=== PATIENT | female | born 1975 | race African-American/Black ===

== ENCOUNTER 2020-02-22 10:04 | Outpatient (CLI) | payer OTHER ==
--- NOTE | 2020-02-22 10:42 | MMO ---
Bilateral MAMMO Bilat Screen DDI. CLINICAL HISTORY: Patient is 44 years old and is seen for screening. The patient has no family history of breast cancer. The patient has no personal history of cancer. VIEWS: The views performed were: bilateral craniocaudal and bilateral mediolateral oblique. This study has been interpreted with the assistance of computer-aided detection. MAMMOGRAM FINDINGS: The breasts are heterogeneously dense, which could obscure a lesion on mammography. There are no suspicious masses, suspicious calcifications, or new areas of architectural distortion. IMPRESSION: THERE IS NO MAMMOGRAPHIC EVIDENCE OF MALIGNANCY. A ROUTINE FOLLOW-UP MAMMOGRAM IN 1 YEAR IS RECOMMENDED. ACR BI-RADS Category 1 - Negative MAMMOGRAPHY NOTE: 1. A negative mammogram report should not delay a biopsy if a dominant of clinically suspicious mass is present. 2. Approximately 10% to 15% of breast cancers are not detected by mammography. 3. Adenosis and dense breasts may obscure an underlying neoplasm. Reported by: USMAN MONROE MD Electonically Signed: [id number]
== END 2020-02-22 10:05 | disposition home or self-care (01) ==
LOC: BICMAMMO 10:04
PROVIDERS: ATTEND Student in an Organized Health Care Education/Training Program
DX: Z12.31 Encounter for screening mammogram for malignant neoplasm of breast (principal)
CPT/HCPCS: 77067

== ENCOUNTER 2020-05-22 20:07 | Inpatient (IN) | payer OTHER ==
[~2020-05-22 20:07] MED LIST: Iopamidol-370 76% 500 ML 1 ML ONE
[2020-05-22] MEDS ORDERED: Dextrose 50% Abboject 50 ML SYRINGE ONE ×2 (21:23→23:10)
--- NOTE | 2020-05-22 21:43 | RAD ---
Portable frontal chest radiograph: 05/22/2020 COMPARISON: 05/13/2008 HISTORY: Alcohol intoxication FINDINGS: Lungs are clear. Heart and mediastinal contours appear within normal limits. IMPRESSION: No acute findings.
--- NOTE | 2020-05-22 21:57 | CT ---
CT OF THE BRAIN WITHOUT CONTRAST: 05/22/20 INDICATIONS: Altered mental status, lying outside on the ground of unknown amount of time. Reportedly drank unknow n amount of Vodka. COMPARISON: None. FINDINGS: There is an intermediate density subdural hematoma overlying the left frontal convexity measuring up to 7.9 mm. There is left to right midline shift of approximately 4 mm. There is moderate cerebral and cerebellar atrophy. No definite acute infarct or hydrocephalus is noted. Mastoid air cells and paran carlos sinuses are clear. Skull is intact. IMPRESSION: 1. Subdural hematoma overlying the left frontal convexity with mild underlying mass effect and l eft to right midline shift of 4 mm. 2. Moderate generalized cerebral and cerebellar atrophy. 3. Findings called to Dr. Schulz at 9:52 p.m. on 05/22/20. Code CR POS: CARA
[2020-05-22 22:03] LABS: ALT (SGPT) Less than 7 U/L (8-55); AST (SGOT) 51 U/L (5-34); Albumin 2.8 g/dL (3.5-5.0); Alkaline Phosphatase 140 U/L (40-110); Anion Gap 44 mmol/L (10-20); BUN (Urea Nitrogen) 10 mg/dL (7.0-18.7); Bilirubin, Total 9.1 mg/dL (0.2-1.2); Calc. Creatinine Clearance 0 mL/min (70-130); Calcium 8.4 mg/dL (7.8-10.44); Chloride 82 mmol/L (98-107); Globulin 4.2 g/dL (2.4-3.5); Sodium 133 mmol/L (136-145)
[2020-05-22 22:10] LABS: Carbon Dioxide 9 mmol/L (22-29); Glucose 24 mg/dL (70-105); Potassium 2.2 mmol/L (3.5-5.1)
[2020-05-22 22:15] LABS: Hemoglobin 4.8 g/dL (12.0-16.0); Mean Corpuscular HGB CONC 32.6 g/dL (32.0-36.0); Mean Corpuscular Hemoglobin 30.8 pg (27.0-31.0); Mean Corpuscular Volume 94.7 fL (78.0-98.0); Mean Platelet Volume 9.4 fL (7.4-10.4); Platelet Count 482 thou/uL (130-400); RBC Distribution Width 15.8 % (11.5-14.5); Red Blood Cell (RBC) Count 1.56 mill/uL (4.20-5.40); White Blood Cell (WBC) Count 14.5 thou/uL (4.8-10.8)
[2020-05-22 22:16] LABS: #Basophils 0.1 thou/uL (0.0-0.2); #Lymphocytes 2.3 thou/uL (1.20-3.40); #Monocytes 0.5 thou/uL (0.11-0.59); #Neutrophils 11.7 thou/uL (1.40-6.50); %Basophils 0.5 % (0.0-1.0); %Eosinophils 0.2 % (0.0-10.0); %Lymphocytes 15.5 % (21.0-51.0); %Monocytes 3.5 % (0.0-10.0); %Neutrophils 80.3 % (42.0-75.0); Anisocytosis SLIGHT = 6-15 cells (100X) (0-5/hpf); MDiff Complete? YES; Reflex for Review?? YES
[2020-05-22 22:17] LABS: Alcohol 34 mg/dL (Less than 10); CK (CPK) 83 U/L (29-168); Lipase 60 U/L (8-78); Magnesium 1.5 mg/dL (1.6-2.6); Salicylate Less than 8.0 mg/dL (15.0-30.0)
[2020-05-22] MEDS ORDERED: Potassium Chloride 20 MEQ/100 ML PREMIX BAG ONE (22:18)
[2020-05-22] MEDS ORDERED: cefTRIAXone\\ROCEPHIN 2 GM VIAL ONE (22:19)
[2020-05-22] MEDS ORDERED: Magnesium 2 GM/50 ML BAG (IN WATER) ONE (22:38)
[2020-05-22 22:49] LABS: Acetaminophen Less than 6.0 mcg/mL (10.0-30.0)
[2020-05-22 22:53] LABS: INR-International Normal Ratio 2.2
[2020-05-22] MEDS ORDERED: Dexamethasone 10 MG/ML VIAL ONE (23:10)
[2020-05-22] MEDS ORDERED: Cefepime 2 GM VIAL ONE (23:15)
--- NOTE | 2020-05-22 23:15 | CT ---
CT angiogram chest: 05/22/2020 HISTORY: Altered mental status, tachycardia TECHNIQUE: Axial CT imaging at 2.5 mm intervals through the chest with IV contrast using CT angiogram protocol. Coronal and sagittal 3-D reformatted imaging obtained. FINDINGS: Coronary arterial calcification. Diffuse hepatic steatosis. No pleural, pericardial, or med iastinal fluid. No lymphadenopathy noted in the chest. The lung parenchyma demonstrates no acute findings. No acute osseous abnormality. No evidence for pulmonary arterial embolism. IMPRESSION: No acute findings.
--- NOTE | 2020-05-22 23:20 | CT ---
CT abdomen and pelvis: 05/22/2020 COMPARISON: None HISTORY: Altered mental status TECHNIQUE: Axial CT imaging at 5 mm intervals from lung bases through pubic symphysis with IV contras t. Coronal and sagittal reformatted imaging obtained. FINDINGS: No free intraperitoneal air. There is an IUD within the uterus. There is severe diffuse hep atic steatosis. The liver is enlarged as well. The liver measures 24 cm in transverse dimension and 27 cm in craniocaudal dimension. Cholelithiasis is noted. The spleen, adrenal glands, and kidneys dem onstrate no acute findings. There are multiple low-density lesions within the region of the uncinate process and head of the panc reas. There are 5 such hypodense lesions measuring up to 1.1 cm, difficult to fully characterize on this examination, demonstrating Hounsfield units in the 15-20 range. There may be a a few additional smaller hypodense lesions within the body and tail of the pancreas as well. Limited assessment of the bowel demonstrates diffuse collapsed nature of the colon with associated wa ll thickening. Wall thickening of the colon is felt to most likely be on the basis of underdistention. A mild degree of diffuse colitis cannot be fully excluded. The appendix appears unre markable. There is extensive multifocal atherosclerotic calcification of the abdominal aorta and its branches. No abdominal or pelvic lymphadenopathy. No acute osseous abnormality. IMPRESSION: 1. Severe hepatic steatosis. Hepatomegaly. 2. Multiple small low-density lesions within the pancreas as above. These may represent pseudocyst fo rmation on the basis of prior pancreatitis. Cystic pancreatic neoplasia cannot be excluded. Recommend short-term follow-up with abdominal MRI with and without contrast in 3 months. 3. Cholelithiasis. 4. Wall prominence of the colon. Underdistention is favored over colitis.
[2020-05-22] MEDS ORDERED: Vancomycin 1 GM/200 ML BAG ONE (23:56)
[2020-05-23 00:44] LABS: Bilirubin 2+ (Negative); Blood, Urine Trace (Negative); Clarity Turbid (Clear); Glucose, Urine (Dipstick) 100 mg/dL (Negative); Ketone, Urine 10 mg/dL (Negative); Leukocyte 500 Leu/uL (Negative); Nitrite Negative (Negative); Protein, Urine (Dipstick) 50 mg/dL (Neg-Trace); Specific Gravity, Urine 1.039 (1.002-1.036); Transitional Epithelial 0-3 HPF (None Seen); Urobilinogen 3 mg/dL (Less than 2); WBC/HPF Greater than 50 HPF (0-3)
[2020-05-23 00:47] LABS: Bacteria/HPF 1+ HPF (None Seen)
[2020-05-23 00:48] LABS: Pregnancy Test - Urine (BHCG) Negative (Negative); Pregu Control Background? CLEAR/WHITE (CLR/WHITE); Pregu Control Bar Appear? YES (CONTROL BAR); Specific Gravity 1.039 (1.002-1.036)
[2020-05-23 01:13] LABS: SARS-CoV-2 NAA Rapid Test Not Detected (NotDetected)
[2020-05-23 01:35] LABS: Amphetamine Not Detected (NotDetected); Barbiturates Screen Not Detected (NotDetected); Benzodiazepine Screen Not Detected (NotDetected); Cocaine Metabolite Screen Not Detected (NotDetected); Medtox Control Line Valid? VALID (VALID); Medtox Reader # READER 4; Methadone Not Detected (NotDetected); Methamphetamine Not Detected (NotDetected); Opiate Screen Not Detected (NotDetected); Oxycodone Screen Not Detected (NotDetected); Phencyclidine (PCP) Not Detected (NotDetected); THC/Cannabinoid Screen Not Detected (NotDetected); Tricyclic Screen Not Detected (NotDetected)
[2020-05-23 01:46] LABS: Lactic Acid 19.6 mmol/L (0.5-2.2)
[2020-05-23 03:19] VITALS: BMI 17.4
[2020-05-23] MEDS: Sodium Chloride 0.9% 1,000 ML IV SCH ×3 (03:25→16:43)
--- NOTE | 2020-05-23 03:51 | HP ---
REASON FOR ADMISSION: Confusion. HISTORY OF PRESENT ILLNESS: This is a 44-year-old female patient who was found wandering and drinking by the police, who called EMS, cleared her to go to be incarcerated, but at some point, she was brought to the ER, found to be hypoglycemic. Her sugar was in the 30s. She was given amps of D50 with improvement of her glycemic level and improvement of her mental status. She is somewhat of a poor historian. She tells me that she has not been eating well and having chronic nausea, vomiting, and diarrhea for the past 2 months. She lost a lot of weight. Also, she has bad dentition and has been having increased swelling in the left side of her lower mandibular area that has been making her food ingestion painful as well. Also, she claimed that she has been having off and on black stools. She also claims that she fell backward while she was going to the pharmacy to pickling grader her medication, but she did not lose her consciousness. She is also claiming that she chronically and constantly feels dizzy. She is unable to drive because of her dizziness. She denies abdominal pain. Denies fevers. Denies chills. Does report fatigue and shortness of breath. PAST MEDICAL HISTORY: 1. Neuropathy. 2. High blood pressure. 3. Muscle spasm. 4. Reviewing her records shows that in the past she had pancreatitis. SOCIAL HISTORY: She has a history of alcoholism, but she denies being an alcoholic. She denies using illegal substance. She does smoke. FAMILY HISTORY: Negative for premature coronary artery disease. ALLERGIES: TO PENICILLIN, WHICH CAUSES HER HIVES. REVIEW OF SYSTEMS: All systems reviewed except the above-mentioned severe loss of weight, decreased oral intake, found to be negative. PHYSICAL EXAMINATION: GENERAL: She appears to be cachectic. She does have a swelling at the left side of her lower mandible. She does have poor dentition. VITAL SIGNS: Her blood pressure is 123/98, initially 83/50, pulse is 116, and saturating 100% on room air. HEENT: Head is nontraumatic and normocephalic. Pupils equal, reactive. Extraocular movements are intact. Nonicteric sclerae. Well injected conjunctivae. Oral mucosa dry. NECK: Supple. No adenopathy. No murmur. Thyroid is not palpable. Trachea is midline. No supraclavicular lymphadenopathy. HEART: S1 and S2, regular. No murmur. No gallops. No friction rubs. No displacement of PMI. LUNGS: Clear to auscultation bilaterally. No wheezes. No rhonchi. No crackles. ABDOMEN: Bowel sounds are positive. Nontender abdomen. No hepatosplenomegaly. EXTREMITIES: No lower extremity edema. No cyanosis. NEUROLOGIC: She is moving all her four extremities. Cranial nerves appeared to be intact. LABORATORY DATA: Blood work shows WBC of 14.5; hemoglobin of 4.8, three years ago it was 9.7; MCV 94.7; platelets 482, previously 123. INR of 2.2. Sodium of 133, potassium of 2.2, bicarb of 9, BUN 10, creatinine , initially glucose of 24, repeat . Lactic acid 27.2, magnesium 1.5. AST 51, ALT less than 7, alkaline phosphatase 140, LDH of 359, albumin 2.8, TSH 4.3812. Urinalysis shows leukocyte esterase and wbc's. Serum tox screen shows less than 8 mg of salicylate, less than 6 mcg/mL of Tylenol, and plasma alcohol level of 34. IMAGING: CT of the chest shows no acute findings. CT of the abdomen and pelvis shows severe hepatic steatosis and hepatomegaly. Multiple small low-density lesions within the pancreas as these may represent pseudocyst formation on the basis of prior pancreatitis. Cystic pancreatic neoplasia cannot be excluded. Recommend short-term followup with abdominal MRI with and without contrast in 3 months. Cholelithiasis. Wall prominence of the colon, underdistention is favorable over colitis. Brain CT shows subdural hematoma overlying the left frontal convexity with mild underlying mass effect and [id number]-fc-[id number] midline shift of 4 mm. Moderate generalized cerebral and cerebellar atrophy. ASSESSMENT AND PLAN: This is a 44-year-old female patient who was found to be confused. There was some mention of her being an alcoholic and had a bottle of vodka in her car. Initially found to be hypoglycemic. After supplementation with IV amps of D50, her confusion improved and she tells me that she has a what looks like mass around her mandible that has been growing for a while and making it difficult for her to eat. Also described ongoing nausea, vomiting, and diarrhea for the past 2 months. I believe for that reason, she is cachectic and today became hypoglycemic with suspicion of alcohol abuse; although, her alcohol level is not high today. Neurology: The patient does have a left frontal subdural hematoma. Neurosurgery was consulted by the ER physician and their recommendation is to repeat the CT scan of the head in the morning, but no intervention for the time being, because most likely this finding is chronic/subacute. The patient has documented history of alcoholism. I will start her on thiamine. ENT: The patient does have what looks like a mandibular mass, unknown nature. We are in the process of doing a CT of the neck to further investigate that finding. It could be a neoplastic process that is causing her current symptomatology. Hematology: The patient is severely anemic. Underlying cause is not clear. Her guaiac in the emergency room was negative as per the ER physician. We will check iron studies, vitamin B12, and folic acid levels. She is scheduled to be transfused with 2 units of PRBC. Further workup as per her clinical progression. The patient has high anion gap metabolic acidosis could be due to lactic acidosis due to severe malnutrition and dehydration in the setting of persistent nausea, vomiting, diarrhea, and poor oral intake. We will aggressively hydrate her and recheck her labs in the morning. ID: The patient does have a urinary tract infection. We will have her on Rocephin. She did receive Rocephin and cefepime and vancomycin in the ER. Endocrinology: The patient did have hypoglycemia, could be due to poor oral intake. We will continue checking her glycemic levels. The patient did have improvement after receiving amps of D50. TIME SPENT: One hour of critical care time was spent to manage the patient. Job ID: [id number]
[2020-05-23] MEDS: metroNIDAZOLE 500 MG in Premix Bag 1 BAG IVPB SCH ×3 (06:45→21:32)
[2020-05-23] MEDS ORDERED: Electrolyte Replacement Protocol 1 EACH FS ONE (07:53)
--- NOTE | 2020-05-23 07:57 | CT ---
PRELIMINARY REPORT/[facility]/EMERGENCY AFTER HOURS PROCEDURE: EXAM: CT Head Without Intravenous Contrast. CLINICAL HISTORY: F/U SDH TECHNIQUE: Axial computed tomography images of the head/brain without intravenous contrast. COMPARISON: 05/22/2020 FINDINGS: Subdural hemorrhage extending over most of the left cerebral convexity shows increased attenuation co mpared to 05/22/2020 and is unchanged in size measuring up to 1 cm in thickness at the level of the f oramen of [place]. There is approximately 4 mm of unchanged [id number]-jl-[id number] midline shift at this level, as measured today. No transtentorial or tonsillar herniation. No subarachnoid or epidural hemorrhage identified. No skull fracture. No significant abnormality within the imaged paranasal sinuses or mastoid air charly ls. IMPRESSION: Increased attenuation of left cerebral convexity subdural hemorrhage suggests interval bleeding since 05/22/2020. The size of the hemorrhage is not significantly changed, and iyyh-df-jqjzc midline shift of about 4 mm at the level of the foramen of [place] is also unchanged. No transtentorial or tonsilla r herniation, and no subarachnoid hemorrhage are present. ELECTRONICALLY SIGNED BY: Fan Gross MD May 23, 2020 6:05:42 AM SIMULATION TECHNICIAN This report is intended for review by the ordering physician only, in accordance of law. If you recei ve this report in error, please call [facility] at [phone]. FINAL REPORT EMERGENT AFTER HOURS CT OF THE BRAIN WITHOUT COTNRAST: COMPARISON: 05/22/2020. FINDINGS/IMPRESSION: I agree with the findings and impression given in the preliminary report per [facility] physici an. There is increased density of the left-sided subdural hemorrhage compared to the prior examinati on. There is also slight increased density along the tentorium which could represent small subdural blood in this location. The increased densities suggest interval bleeding since the prior exam. POS: SIDDHARTH
[2020-05-23] MEDS ORDERED: Electrolyte Replacement Protocol FS PRN (08:15)
--- NOTE | 2020-05-23 08:15 | CT ---
PRELIMINARY REPORT/[facility]/EMERGENCY AFTER HOURS PROCEDURE: Receipt of this report by the clinical staff was confirmed with Faisal Truong MD by Jennifer Clay May 23, 2020 02:24:00 APPLIANCE INSTALLER. Addendum electronically signed by Jennifer Clay on May 23, 2020 2:24:39 AM APPLIANCE INSTALLER EXAM: CT Neck with Intravenous Contrast. CLINICAL HISTORY: L jaw angle facial mass TECHNIQUE: Axial computed tomography images of the neck with intravenous contrast. Sagittal and coronal reformat ions performed. CONTRAST: With; ISOVUE 370,100mL COMPARISON: None provided. FINDINGS: PHARYNX: The nasopharynx, oropharyx, and hypopharynx are unremarkable. No pharyngeal mucosal based mass lesion s. LARYNX: The larynx is unremarkable. Normal epiglottis. RETROPHARYNGEAL SPACE: No retropharyngeal soft tissue swelling or gas. SALIVARY GLANDS: The parotid, submandibular, and sublingual glands are unremarkable. LYMPH NODES: No lymphadenopathy. THYROID: The thyroid gland is unremarkable. No nodule. BONES: No acute osseous abnormality. Sinus mucosal thickening. Bilateral maxillary sinus unerupted teeth. Prominent dental caries. Left mandibular periodontitis with a drainage tract laterally. Adjacent 2. 8 x 2 cm soft tissue abscess, mostly subcutaneous. IMPRESSION: Left mandibular periodontitis complicated by 2.8 cm lower facial soft tissue abscess, mostly subcutan eous. ELECTRONICALLY SIGNED BY: Elieser Boland MD May 23, 2020 2:21:29 AM APPLIANCE INSTALLER This report is intended for review by the ordering physician only, in accordance of law. If you recei ve this report in error, please call [facility] at [phone]. FINAL REPORT CT NECK WITH CONTRAST: INDICATION: Left facial mass with pain and swelling. FINDINGS: Lucency surrounds a left mandibular molar consistent with a periapical abscess. There is cortical dis ruption along the buccal surface and there is associated buccal surface abscess along the left mandib le as described on the preliminary report. This measures in the 3.0 cm range. I am in agreement with the preliminary report issued by [facility]. POS: AGW
--- NOTE | 2020-05-23 08:27 | CON ---
DATE OF CONSULTATION: 05/23/2020 CONSULTING PHYSICIAN: Edwige Buckley. REASON FOR CONSULTATION: Critical care management. HISTORY OF PRESENT ILLNESS: The patient is a 44-year-old black female who apparently was found wandering about town, intoxicated, by police. She is in bad shape. She has a subdural hematoma, fairly significant anemia, bilateral dental abscesses. She does not give me much in the way history. She does indicate that she has been having dark stools and she endorses facial pain. PAST MEDICAL HISTORY: 1. Hypertension. 2. Pancreatitis. 3. Neuropathy. PAST SURGICAL HISTORY: None. SOCIAL HISTORY: Alcohol abuse. Tobacco abuse. ALLERGIES: PENICILLIN. MEDICATIONS: Prior to admission, none. REVIEW OF SYSTEMS: The patient is uncooperative with endorsing any review of systems. PHYSICAL EXAMINATION: VITAL SIGNS: Temperature 98, pulse 80, blood pressure 144/85, O2 saturation 100%. GENERAL: She is a thin female, standing 5 feet 7 inches, weighing 111 pounds. HEENT: There is no obvious trauma to her head. She has bilateral lower mandibular swellings. The left area is extremely tender to palpation. NECK: No adenopathy or JVD. LUNGS: Clear to auscultation. CARDIOVASCULAR: S1 and S2. Regular without murmur. ABDOMEN: Soft and nontender. EXTREMITIES: No clubbing, cyanosis, or edema. LABORATORY DATA: White blood cell count 14.5, hemoglobin 4.8, hematocrit 14.7, MCV 94, and platelet count 482. INR 2.2. Lactate was 19.6. Sodium 133, potassium 3.2, chloride 82, CO2 of 9, BUN 10, creatinine 1.1, glucose was originally 24, AST 51, ALT 7, total bilirubin 9.1. Urinalysis showed glucosuria, ketonuria. Beta-hydroxybutyrate was 2.0. Alcohol level is 34. COVID test was negative. Chest x-ray shows no mass, effusion, or infiltrate. Head CT shows a left frontal subdural hematoma. ASSESSMENT: This is a 44-year-old alcoholic presenting with numerous medical problems including bilateral dental abscesses, subdural hematoma, anemia most likely due to gastrointestinal blood loss, significant alcoholic liver disease, alcoholic ketosis, severe metabolic acidosis, and protein-calorie malnutrition. RECOMMENDATIONS: 1. The patient needs to be hydrated. 2. Needs to receive thiamine daily. 3. Has received some packed red blood cells. 4. Needs empiric antibiotics for dental abscesses. 5. Will need Oral Surgery consultation. 6. Will need GI consultation for both possible GI bleed and her liver situation. Job ID: [id number]
[2020-05-23] MEDS ORDERED: FLU VACC QS2020-21(6MOS UP)/PF 60 MCG/0.5 ML SYRINGE IM ONE (09:00)
[2020-05-23 09:36] LABS: #Lymphocytes 1.1 thou/uL (1.20-3.40); #Monocytes 0.3 thou/uL (0.11-0.59); #Neutrophils 10.1 thou/uL (1.40-6.50); %Basophils 0.1 % (0.0-1.0); %Lymphocytes 9.4 % (21.0-51.0); %Monocytes 2.8 % (0.0-10.0); %Neutrophils 87.7 % (42.0-75.0); Mean Corpuscular HGB CONC 33.9 g/dL (32.0-36.0); Mean Corpuscular Hemoglobin 29.3 pg (27.0-31.0); Mean Corpuscular Volume 86.6 fL (78.0-98.0); Mean Platelet Volume 9.4 fL (7.4-10.4); Platelet Count 295 thou/uL (130-400); RBC Distribution Width 17.7 % (11.5-14.5); Red Blood Cell (RBC) Count 2.38 mill/uL (4.20-5.40); White Blood Cell (WBC) Count 11.5 thou/uL (4.8-10.8)
[2020-05-23 09:57] LABS: ALT (SGPT) 14 U/L (8-55); AST (SGOT) 222 U/L (5-34); Albumin 2.3 g/dL (3.5-5.0); Alkaline Phosphatase 98 U/L (40-110); Anion Gap 18 mmol/L (10-20); BUN (Urea Nitrogen) 7 mg/dL (7.0-18.7); Bilirubin, Total 7.7 mg/dL (0.2-1.2); Calc. Creatinine Clearance 76 mL/min (70-130); Calcium 7.3 mg/dL (7.8-10.44); Carbon Dioxide 27 mmol/L (22-29); Chloride 92 mmol/L (98-107); Globulin 3.6 g/dL (2.4-3.5); Glucose 149 mg/dL (70-105); Iron 135 ug/dL (50-170); Protein, Total 5.9 g/dL (6.0-8.3); Sodium 135 mmol/L (136-145); Transferrin, Serum 102 mg/dL (180-382)
[2020-05-23 09:59] LABS: Potassium 1.8 mmol/L (3.5-5.1)
[2020-05-23] MEDS: Potassium Chloride 40 MEQ in Sodium Chloride 0.9% 250 ML 250 ML IVPB SCH ×2 (10:40→13:50)
[2020-05-23 10:55] LABS: Anisocytosis MODERATE=16-30 cells (100X) (0-5/hpf); Band 13 % (5-11); Lymphocytes 13 % (21-51); MDiff Complete? YES; Monocytes 2 % (0-10); Neutrophil 72 % (42-75); Platelet Morphology Comment Appears Adequate; Polychromasia MODERATE = 3-4 cells (100X) (0-2/hpf); Reflex for Review?? NO; Target Cells SLIGHT = 2-5 cells (100X) (0-1/hpf); Vacuoles MODERATE
--- NOTE | 2020-05-23 11:12 | CON ---
DATE OF CONSULTATION: HISTORY OF PRESENT ILLNESS: Ms. Cha is a 44-year-old woman who was found down yesterday by police department and brought in for while she was intoxicated at the time and unfortunately was in a state of quite significant confusion. Upon presentation in the emergency department, she was discovered to have significant anemia and multiplicity of metabolic abnormalities along with alcoholic intoxication. CT scan of the head revealed a subacute to chronic left frontotemporal subdural hematoma with minimal compression of the underlying brain parenchyma. For this reason, Neurosurgery was consulted. She was discussed at the bedside in the ER to have GCS 14. Upon my review this morning at bedside, I would corroborate this. She understands where she is, location that she is currently in the ICU, but does not recall much of yesterday's events. Objectively, the patient can move all extremities without impairment. She has excellent strength in bilateral upper and bilateral lower extremities. Pupils are equal, round, and reactive to light. Extraocular movements are intact. Speech is somewhat garbled and she does have notable protuberance of the bilateral jaws, which apparently are bilateral dental abscesses. She denies any other significant pains otherwise. ASSESSMENT: Subacute to chronic subdural hematoma. PLAN: At this time, this is definitively not a surgical was already performed this morning, which shows stable hemorrhage size with minimal compression. This is something we will follow up in the outpatient setting in 6 to 8 weeks with repeat head CT at that time. She needs to refrain from any and all NSAIDs or other blood thinning or anticoagulant medications. This was discussed with the patient. Job ID: [id number]
[2020-05-23] MEDS ORDERED: Iopamidol-370 76% 500 ML 1 ML ONE (11:43)
[2020-05-23] MEDS: Multivitamins, Adult 10 ML, Folic Acid 1 MG, Thiamine HCl 100 MG in Dextrose 5 %-0.45 %... IV SCH (13:47)
[2020-05-23 15:46] LABS: Anion Gap 16 mmol/L (10-20); BUN (Urea Nitrogen) 7 mg/dL (7.0-18.7); Calc. Creatinine Clearance 89 mL/min (70-130); Calcium 7.3 mg/dL (7.8-10.44); Carbon Dioxide 29 mmol/L (22-29); Chloride 91 mmol/L (98-107); Glucose 120 mg/dL (70-105); Magnesium 1.2 mg/dL (1.6-2.6); Sodium 134 mmol/L (136-145)
[2020-05-23 15:50] LABS: Phosphorus Less than 1.0 mg/dL (2.3-4.7); Potassium 1.9 mmol/L (3.5-5.1)
[2020-05-23] MEDS ORDERED: Potassium Phosphate 30 MMOL in Sodium Chloride 0.9% 250 ML 250 ML IVPB SCH (16:00)
[2020-05-23] MEDS: cefTRIAXone\\ROCEPHIN 1 GM in Sodium Chloride 0.9% 100 ML IVPB SCH (21:32)
[2020-05-24] MEDS: Sodium Chloride 0.9% 1,000 ML IV SCH ×2 (01:35→09:09)
[2020-05-24 04:19] LABS: #Lymphocytes 1.4 thou/uL (1.20-3.40); #Monocytes 0.4 thou/uL (0.11-0.59); %Basophils 0.1 % (0.0-1.0); %Eosinophils 0.1 % (0.0-10.0); %Lymphocytes 11.9 % (21.0-51.0); %Monocytes 3.4 % (0.0-10.0); %Neutrophils 84.5 % (42.0-75.0); Hemoglobin 6.5 g/dL (12.0-16.0); Mean Corpuscular Hemoglobin 29.7 pg (27.0-31.0); Mean Corpuscular Volume 84.9 fL (78.0-98.0); Platelet Count 310 thou/uL (130-400); RBC Distribution Width 17.8 % (11.5-14.5); Red Blood Cell (RBC) Count 2.19 mill/uL (4.20-5.40); White Blood Cell (WBC) Count 11.9 thou/uL (4.8-10.8)
[2020-05-24 04:51] LABS: Anion Gap 13 mmol/L (10-20); BUN (Urea Nitrogen) 7 mg/dL (7.0-18.7); Calc. Creatinine Clearance 93 mL/min (70-130); Calcium 6.8 mg/dL (7.8-10.44); Carbon Dioxide 30 mmol/L (22-29); Chloride 95 mmol/L (98-107); Glucose 96 mg/dL (70-105); Magnesium 1.1 mg/dL (1.6-2.6); Phosphorus 1.5 mg/dL (2.3-4.7); Sodium 136 mmol/L (136-145)
[2020-05-24] MEDS ORDERED: Potassium Phosphate 22 MMOL in Sodium Chloride 0.9% 250 ML 250 ML IVPB SCH (05:15)
[2020-05-24] MEDS: metroNIDAZOLE 500 MG in Premix Bag 1 BAG IVPB SCH ×3 (05:31→22:36)
[2020-05-24] MEDS ORDERED: Magnesium Sulfate 4 GM in Sodium Chloride 0.9% 250 ML 250 ML IVPB SCH (06:15)
[2020-05-24] MEDS ORDERED: Potassium Chloride 20 MEQ in Premix Bag 1 BAG IVPB SCH (08:00)
[2020-05-24] MEDS: Multivitamins, Adult 10 ML, Folic Acid 1 MG, Thiamine HCl 100 MG in Dextrose 5 %-0.45 %... IV SCH (08:21)
[2020-05-24] MEDS ORDERED: Potassium Phosphate 40 MMOL in Sodium Chloride 0.9% 250 ML 250 ML IVPB SCH (10:30)
--- NOTE | 2020-05-24 10:41 | PRG ---
DATE OF SERVICE: 05/24/2020 SUBJECTIVE: The patient is awake, alert, has no acute complaints. OBJECTIVE: VITAL SIGNS: Temperature 98.6, pulse 77, blood pressure 109/86, and O2 saturation 100%. HEENT: Remarkable for the mandibular abscesses. NECK: No JVD. LUNGS: Clear. CARDIAC: S1 and S2. Regular. ABDOMEN: Soft. EXTREMITIES: No edema. LABORATORY DATA: Sodium 136, potassium 2.0, chloride 95, CO2 of 30, BUN 7, creatinine 0.6, glucose 106. Phosphorus 1.5. Magnesium 1.1. White blood cell count 11.9, hemoglobin 6.5, hematocrit 18.6, and platelet count 310. ASSESSMENT: 1. Severe electrolyte depletion secondary to alcoholism. 2. Subdural hematoma. 3. Anemia due to blood loss. 4. Alcohol abuse. 5. Dental abscesses. PLAN: 1. The patient will need transfusion of blood. 2. She will need further electrolyte replacement before she is eligible for anesthesia. 3. She needs continuous cardiac monitoring as she is high risk for cardiac arrest. Job ID: [id number]
[2020-05-24 12:05] LABS: Anion Gap 20 mmol/L (10-20); BUN (Urea Nitrogen) 7 mg/dL (7.0-18.7); Calc. Creatinine Clearance 89 mL/min (70-130); Calcium 6.9 mg/dL (7.8-10.44); Carbon Dioxide 23 mmol/L (22-29); Chloride 95 mmol/L (98-107); Glucose 199 mg/dL (70-105); Magnesium 2.3 mg/dL (1.6-2.6); Sodium 135 mmol/L (136-145)
[2020-05-24 12:13] LABS: Potassium 2.9 mmol/L (3.5-5.1)
--- NOTE | 2020-05-24 13:06 | PDOC.HOSPP ---
- Subjective Encounter Date: 05/24/20 Subjective: The patient is complaining of bilateral mandibular pain. - Objective Vital Signs & Weight: Vital Signs (12 hours) Temp Pulse Ox 05/24/20 08:00 98.6 F 05/24/20 07:35 99 05/24/20 04:00 98.9 F Weight Weight 111 lb 4.8 oz Most Recent Monitor Data Heart Rate from ECG 90 NIBP 136/89 NIBP BP-Mean 104 Respiration from ECG 16 SpO2 96 I&O: 05/23/20 05/24/20 05/25/20 06:59 06:59 06:59 Intake Total 768 3321 1050 Output Total 650 2900 420 Balance 118 421 630 Result Diagrams: 05/24/20 03:08 05/24/20 11:36 Additional Labs: Accuchecks 05/24/20 05/24/20 05/22/20 07:32 00:09 21:20 POC Glucose 106 H 111 H 21 L* Hospitalist ROS - Medication Medications: Active Medications Generic Name Dose Route Start Last Admin Trade Name Montyq PRN Reason Stop Dose Admin Sodium Chloride 1,000 mls @ 125 mls/hr 05/23/20 01:30 05/24/20 09:09 Normal Saline 0.9% IV 1,000 mls .Q8H YUMIKO Administration Ceftriaxone Sodium 1 gm/ 100 mls @ 200 mls/hr 05/23/20 22:00 05/23/20 21:32 Sodium Chloride IVPB 100 mls Q24HR YUMIKO Administration Metronidazole 500 mg/ Device 100 mls @ 100 mls/hr 05/23/20 06:00 05/24/20 05:31 IVPB 100 mls Q8HR YUMIKO Administration Multivitamins 10 ml/ Folic 1,011.2 mls @ 150 mls/hr 05/23/20 08:00 05/24/20 08:21 Acid 1 mg/ Thiamine HCl 100 mg IV 1,011.2 mls / Dextrose/Sodium Chloride Q24HR YUMIKO Administration Sodium Chloride 10 ml 05/23/20 09:00 05/24/20 09:09 Flush - Normal Saline 10 Ml Syringe IVF 10 ml Q12HR YUMIKO Administration - Exam General Appearance: awake alert ENT: normocephalic atraumatic Neck: supple, no JVD Heart: RRR Respiratory: normal chest expansion, no tachypnea Extremities: no cyanosis, no clubbing Skin: normal turgor, no lesions Neurological: cranial nerve grossly intact Hosp A/P (1) Sepsis Code(s): A41.9 - SEPSIS, UNSPECIFIED ORGANISM Status: Acute (2) Periodontal abscess Code(s): K05.219 - AGGRESSIVE PERIODONTITIS, LOCALIZED, UNSPECIFIED SEVERITY Status: Acute (3) Subdural hematoma Code(s): S06.5X9A - TRAUM SUBDR HEM W LOC OF UNSP DURATION, INIT Status: Acute (4) Hypokalemia Code(s): E87.6 - HYPOKALEMIA Status: Acute (5) Hypomagnesemia Code(s): E83.42 - HYPOMAGNESEMIA Status: Acute (6) Alcoholism Code(s): F10.20 - ALCOHOL DEPENDENCE, UNCOMPLICATED Status: Acute - Plan The patient is a 44-year-old female with history of alcoholism and hypertension who was brought to the hospital in an altered state. Initial assessment in the emergency department revealed evidence of bilateral periodontal abscesses in addition to left subdural hemorrhage. The patient also had severe electrolyte disturbances. She was started on broad-spectrum antibiotics, IV fluids, and electrolyte replacement protocols. The patient also received multiple units of blood for severe normocytic normochromic anemia. GI source of blood loss cannot be completely excluded. The patient is due for oral mandibular surgery today.
[2020-05-24 13:32] LABS: INR-International Normal Ratio 1.7; Prothrombin Time 20.7 sec (12.0-14.7)
[2020-05-24 13:33] LABS: PTT 31.8 sec (22.9-36.1)
--- NOTE | 2020-05-24 14:50 | EKG ---
Test Reason : Blood Pressure : / mmHG Vent. Rate : 103 BPM Atrial Rate : 103 BPM P-R Int : 136 ms QRS Dur : 108 ms QT Int : 430 ms P-R-T Axes : 076 076 262 degrees QTc Int : 563 ms Sinus tachycardia with Premature atrial complexes with Abberant conduction Left ventricular hypertrophy with repolarization abnormality Abnormal ECG Confirmed by PATRICIA EVANS M.D. ([id number]), sound editor MICHEL BOND ([id number]) on 05/24/2020 2:50:44 PM Referred By: Confirmed By:PATRICIA EVANS M.D.
[2020-05-24] MEDS ORDERED: Potassium Chloride 20 MEQ TAB PO SCH (15:00)
[2020-05-24 18:45] LABS: Magnesium 1.6 mg/dL (1.6-2.6); Phosphorus 2.1 mg/dL (2.3-4.7); Potassium 2.4 mmol/L (3.5-5.1)
[2020-05-24] MEDS ORDERED: Magnesium 2 GM/50 ML 2 GM in Premix Bag 1 BAG IVPB SCH (19:30)
[2020-05-24] MEDS: Lidocaine 5% Patch TD SCH (19:49)
[2020-05-24] MEDS: Potassium Chloride 20 MEQ in Premix Bag 1 BAG IVPB SCH (19:58)
[2020-05-24] MEDS: cefTRIAXone\\ROCEPHIN 1 GM in Sodium Chloride 0.9% 100 ML IVPB SCH (21:12)
[2020-05-25] MEDS: Potassium Chloride 20 MEQ in Premix Bag 1 BAG IVPB SCH ×4 (01:23→12:24)
[2020-05-25] MEDS: Sodium Chloride 0.9% 1,000 ML IV SCH ×2 (03:16→14:29)
[2020-05-25 05:14] LABS: Anion Gap 14 mmol/L (10-20); BUN (Urea Nitrogen) Less than 4 mg/dL (7.0-18.7); Calc. Creatinine Clearance 112 mL/min (70-130); Calcium 6.6 mg/dL (7.8-10.44); Carbon Dioxide 25 mmol/L (22-29); Chloride 97 mmol/L (98-107); Glucose 98 mg/dL (70-105); Magnesium 1.5 mg/dL (1.6-2.6); Phosphorus 1.3 mg/dL (2.3-4.7); Sodium 134 mmol/L (136-145)
[2020-05-25 05:17] LABS: Potassium 2.4 mmol/L (3.5-5.1)
[2020-05-25] MEDS ORDERED: Potassium Phosphate 22 MMOL in Sodium Chloride 0.9% 250 ML 250 ML IVPB SCH (05:30)
[2020-05-25] MEDS ORDERED: Magnesium 2 GM/50 ML 2 GM in Premix Bag 1 BAG IVPB SCH ×2 (05:30→09:30)
[2020-05-25 05:55] LABS: #Lymphocytes 1.7 thou/uL (1.20-3.40); #Monocytes 0.5 thou/uL (0.11-0.59); #Neutrophils 7.5 thou/uL (1.40-6.50); %Basophils 0.4 % (0.0-1.0); %Eosinophils 0.4 % (0.0-10.0); %Lymphocytes 17.7 % (21.0-51.0); %Monocytes 5.3 % (0.0-10.0); %Neutrophils 76.1 % (42.0-75.0); Mean Corpuscular Hemoglobin 29.5 pg (27.0-31.0); Mean Corpuscular Volume 84.4 fL (78.0-98.0); Mean Platelet Volume 8.7 fL (7.4-10.4); Platelet Count 231 thou/uL (130-400); Red Blood Cell (RBC) Count 2.71 mill/uL (4.20-5.40); White Blood Cell (WBC) Count 9.8 thou/uL (4.8-10.8)
[2020-05-25] MEDS: metroNIDAZOLE 500 MG in Premix Bag 1 BAG IVPB SCH ×3 (07:42→22:43)
[2020-05-25] MEDS ORDERED: Potassium Chloride 20 MEQ in Premix Bag 1 BAG IVPB SCH (08:00)
[2020-05-25] MEDS: Lidocaine Patch Removal TOP SCH (08:54)
[2020-05-25] MEDS: Multivitamins, Adult 10 ML, Folic Acid 1 MG, Thiamine HCl 100 MG in Dextrose 5 %-0.45 %... IV SCH (08:54)
[2020-05-25] MEDS ORDERED: PHOS-NAK 1 PKT PACK PO SCH (09:30)
[2020-05-25] MEDS: NS 0.9% w/ 40 MEQ KCL 1,000 ML IV SCH ×2 (10:50→20:33)
[2020-05-25 14:00] LABS: Chloride 84 mmol/L (98-107)
[2020-05-25 14:53] LABS: Sodium 133 mmol/L (136-145)
[2020-05-25 14:54] LABS: Calcium 6.9 mg/dL (7.8-10.44); Glucose 172 mg/dL (70-105)
[2020-05-25 14:56] LABS: Anion Gap 17 mmol/L (10-20); Carbon Dioxide 24 mmol/L (22-29)
[2020-05-25 14:58] LABS: BUN (Urea Nitrogen) Less than 4 mg/dL (7.0-18.7); Calc. Creatinine Clearance 102 mL/min (70-130)
[2020-05-25 14:59] LABS: Potassium 2.8 mmol/L (3.5-5.1)
[2020-05-25 15:00] LABS: Magnesium 2.1 mg/dL (1.6-2.6)
[2020-05-25] MEDS ORDERED: Potassium Chloride 20 MEQ TAB PO SCH (15:45)
--- NOTE | 2020-05-25 16:40 | PDOC.HOSPP ---
- Subjective Encounter Date: 05/25/20 Subjective: The patient is still having loose stools. - Objective Vital Signs & Weight: Vital Signs (12 hours) Temp Pulse Resp BP Pulse Ox 05/25/20 15:15 98.8 F 88 20 137/94 H 96 05/25/20 11:58 97.7 F 90 16 147/112 H 97 05/25/20 07:56 97.8 F 96 16 143/105 H 99 05/25/20 07:40 99 Weight Admit Weight 111 lb 4.8 oz Weight 111 lb 4.8 oz Most Recent Monitor Data Heart Rate from ECG 108 NIBP 152/95 NIBP BP-Mean 114 Respiration from ECG 27 SpO2 100 I&O: 05/24/20 05/25/20 05/26/20 06:59 06:59 06:59 Intake Total 3321 1925 Output Total 2900 2920 Balance 421 995 Result Diagrams: 05/25/20 04:35 05/25/20 12:58 Additional Labs: Accuchecks 05/25/20 05/25/20 05/25/20 16:11 11:30 08:32 POC Glucose 185 H 147 H 97 05/25/20 05/24/20 05/24/20 03:58 23:48 17:39 POC Glucose 103 H 152 H 156 H Hospitalist ROS - Medication Medications: Active Medications Generic Name Dose Route Start Last Admin Trade Name Freq PRN Reason Stop Dose Admin Ceftriaxone Sodium 1 gm/ 100 mls @ 200 mls/hr 05/23/20 22:00 05/24/20 21:12 Sodium Chloride IVPB 100 mls Q24HR YUMIKO Administration Metronidazole 500 mg/ Device 100 mls @ 100 mls/hr 05/23/20 06:00 05/25/20 14:57 IVPB 100 mls Q8HR YUMIKO Administration Multivitamins 10 ml/ Folic 1,011.2 mls @ 150 mls/hr 05/23/20 08:00 05/25/20 08:54 Acid 1 mg/ Thiamine HCl 100 mg IV 1,011.2 mls / Dextrose/Sodium Chloride Q24HR YUMIKO Administration Potassium Chloride/Sodium Chloride 1,000 mls @ 100 mls/hr 05/25/20 09:30 05/25/20 10:50 Ns 0.9% W/ 40 Meq Kcl IV 1,000 mls .Q10H YUMIKO Administration Lidocaine 1 patch 05/24/20 21:00 05/24/20 19:49 Lidocaine 5% Patch TD 1 patch HS YUMIKO Administration Miscellaneous Medication 1 each 05/25/20 09:00 05/25/20 08:54 Lidocaine Patch Removal TOP 1 each QAM YUMIKO Administration Potassium Chloride 40 meq 05/25/20 15:45 05/25/20 16:12 Potassium Chloride 20 Meq Tab PO 05/25/20 17:00 40 meq NOW YUMIKO Administration Sodium Chloride 10 ml 05/23/20 09:00 05/25/20 07:45 Flush - Normal Saline 10 Ml Syringe IVF 10 ml Q12HR YUMIKO Administration - Exam General Appearance: awake alert ENT: normocephalic atraumatic Neck: supple Neck - other findings: Bilateral maxillary lumps Heart: RRR Respiratory: normal chest expansion, no tachypnea Extremities: no cyanosis, no clubbing Neurological: cranial nerve grossly intact, no focal deficits Hosp A/P (1) Sepsis Code(s): A41.9 - SEPSIS, UNSPECIFIED ORGANISM Status: Acute (2) Periodontal abscess Code(s): K05.219 - AGGRESSIVE PERIODONTITIS, LOCALIZED, UNSPECIFIED SEVERITY Status: Acute (3) Subdural hematoma Code(s): S06.5X9A - TRAUM SUBDR HEM W LOC OF UNSP DURATION, INIT Status: Acute (4) Hypokalemia Code(s): E87.6 - HYPOKALEMIA Status: Acute (5) Hypomagnesemia Code(s): E83.42 - HYPOMAGNESEMIA Status: Acute (6) Alcoholism Code(s): F10.20 - ALCOHOL DEPENDENCE, UNCOMPLICATED Status: Acute - Plan The patient is a 44-year-old female with history of alcoholism and hypertension who was brought to the hospital in an altered state. Initial assessment in the emergency department revealed evidence of bilateral periodontal abscesses in addition to left subdural hemorrhage. The patient also had severe electrolyte disturbances. She was started on broad-spectrum antibiotics, IV fluids, and electrolyte replacement protocols. The patient also received multiple units of blood for severe normocytic normochromic anemia. GI source of blood loss cannot be completely excluded. The patient is having non bloody loose stools. Her oral surgery has been postponed due to severe persistent electrolyte disturbances. We will continue to aggressively replace her electrolytes.
[2020-05-25] MEDS: Acetaminophen/Codeine 30-300mg Tablet PO PRN (17:02)
[2020-05-25] MEDS: Potassium Chloride 20 MEQ TAB PO SCH ×2 (17:03→20:23)
[2020-05-25] MEDS: Lidocaine 5% Patch TD SCH (20:22)
[2020-05-25] MEDS: cefTRIAXone\\ROCEPHIN 1 GM in Sodium Chloride 0.9% 100 ML IVPB SCH (21:47)
[2020-05-26] MEDS: Potassium Chloride 20 MEQ TAB PO SCH (01:49)
[2020-05-26] MEDS: metroNIDAZOLE 500 MG in Premix Bag 1 BAG IVPB SCH ×3 (06:09→20:43)
[2020-05-26 06:11] LABS: Band 16 % (5-11); Hemoglobin 8.3 g/dL (12.0-16.0); Lymphocytes 26 % (21-51); MDiff Complete? YES; Mean Corpuscular Hemoglobin 28.8 pg (27.0-31.0); Mean Corpuscular Volume 84.6 fL (78.0-98.0); Mean Platelet Volume 8.7 fL (7.4-10.4); Metamyelocyte 1 % (0-0); Monocytes 4 % (0-10); Myelocyte 3 % (0-0); Neutrophil 50 % (42-75); Platelet Count 193 thou/uL (130-400); RBC Distribution Width 17.3 % (11.5-14.5); Target Cells SLIGHT = 2-5 cells (100X) (0-1/hpf); White Blood Cell (WBC) Count 10.9 thou/uL (4.8-10.8)
[2020-05-26 06:14] LABS: Phosphorus Less than 1.0 mg/dL (2.3-4.7)
[2020-05-26] MEDS: NS 0.9% w/ 40 MEQ KCL 1,000 ML IV SCH ×2 (06:27→18:25)
[2020-05-26 06:50] LABS: Anion Gap 14 mmol/L (10-20); BUN (Urea Nitrogen) Less than 4 mg/dL (7.0-18.7); Calc. Creatinine Clearance 119 mL/min (70-130); Calcium 6.7 mg/dL (7.8-10.44); Carbon Dioxide 21 mmol/L (22-29); Chloride 99 mmol/L (98-107); Glucose 111 mg/dL (70-105); Magnesium 1.1 mg/dL (1.6-2.6); Potassium 4.8 mmol/L (3.5-5.1); Sodium 129 mmol/L (136-145)
[2020-05-26] MEDS ORDERED: Magnesium Sulfate 4 GM in Sodium Chloride 0.9% 250 ML 250 ML IVPB SCH (07:30)
[2020-05-26 07:55] LABS: INR-International Normal Ratio 1.6; Prothrombin Time 19.2 sec (12.0-14.7)
[2020-05-26 07:56] LABS: PTT 35.4 sec (22.9-36.1)
[2020-05-26] MEDS: Acetaminophen/Codeine 30-300mg Tablet PO PRN (09:00)
[2020-05-26] MEDS: Lidocaine Patch Removal TOP SCH (09:03)
[2020-05-26] MEDS: Multivitamins, Adult 10 ML, Folic Acid 1 MG, Thiamine HCl 100 MG in Dextrose 5 %-0.45 %... IV SCH (11:14)
[2020-05-26] MEDS ORDERED: SODIUM CHLORIDE 0.9% IVPB SCH (11:30)
[2020-05-26] MEDS ORDERED: SODIUM PHOSPHATE IVPB SCH (11:30)
--- NOTE | 2020-05-26 12:43 | PDOC.HOSPP ---
- Subjective Encounter Date: 05/26/20 Encounter Time: 12:41 Subjective: I'm hungry, can I have some cookies? - Objective Vital Signs & Weight: Vital Signs (12 hours) Temp Pulse Resp BP Pulse Ox 05/26/20 11:57 97.8 F 85 16 130/95 H 95 05/26/20 07:48 98.9 F 97 16 143/96 H 97 05/26/20 07:20 97 05/26/20 03:47 98.3 F 108 H 18 120/85 100 05/26/20 01:55 99 Weight Admit Weight 111 lb 4.8 oz Weight 111 lb 4.8 oz Most Recent Monitor Data Heart Rate from ECG 108 NIBP 152/95 NIBP BP-Mean 114 Respiration from ECG 27 SpO2 100 I&O: 05/25/20 05/26/20 05/27/20 06:59 06:59 06:59 Intake Total 1925 3855 Output Total 2920 2275 Balance -995 1580 Result Diagrams: 05/26/20 05:39 05/26/20 05:39 Additional Labs: Accuchecks 05/26/20 05/26/20 05/26/20 12:21 08:20 03:32 POC Glucose 93 87 101 H 05/25/20 05/25/20 05/25/20 23:21 19:49 16:11 POC Glucose 132 H 180 H 185 H 05/24/20 05/23/20 12:24 20:03 POC Glucose 248 H 120 H Hospitalist ROS - Medication Medications: Active Medications Generic Name Dose Route Start Last Admin Trade Name Freq PRN Reason Stop Dose Admin Acetaminophen/Codeine Phosphate 1 tab 05/25/20 16:46 05/26/20 09:00 Acetaminophen/Codeine 30-300mg Tablet PO 1 tab Q4H PRN Administration Moderate Pain (4-6) Ceftriaxone Sodium 1 gm/ 100 mls @ 200 mls/hr 05/23/20 22:00 05/25/20 21:47 Sodium Chloride IVPB 100 mls Q24HR YUMIKO Administration Metronidazole 500 mg/ Device 100 mls @ 100 mls/hr 05/23/20 06:00 05/26/20 06:09 IVPB 100 mls Q8HR YUMIKO Administration Multivitamins 10 ml/ Folic 1,011.2 mls @ 150 mls/hr 05/23/20 08:00 12/21/20 1 1:14 Acid 1 mg/ Thiamine HCl 100 mg IV 1,011.2 mls / Dextrose/Sodium Chloride Q24HR YUMIKO Administration Potassium Chloride/Sodium Chloride 1,000 mls @ 100 mls/hr 05/25/20 09:30 05/26/20 06:27 Ns 0.9% W/ 40 Meq Kcl IV 1,000 mls .Q10H YUMIKO Administration Lidocaine 1 patch 05/24/20 21:00 05/25/20 20:22 Lidocaine 5% Patch TD 1 patch HS YUMIKO Administration Miscellaneous Medication 1 each 05/25/20 09:00 05/26/20 09:03 Lidocaine Patch Removal TOP 1 each QAM YUMIKO Administration Sodium Chloride 10 ml 05/23/20 09:00 05/26/20 09:02 Flush - Normal Saline 10 Ml Syringe IVF 10 ml Q12HR YUMIKO Administration - Exam General Appearance: awake alert ENT - other findings: 2-3 cm fluctuant left submandibular mass Neck: no JVD Heart: RRR, no murmur Respiratory: CTAB Gastrointestinal: soft, normal bowel sounds Extremities: no edema Hosp A/P (1) Anemia Code(s): D64.9 - ANEMIA, UNSPECIFIED Status: Acute Qualifiers: Anemia type: unspecified type Qualified Code(s): D64.9 - Anemia, unspecified (2) Alcoholism Code(s): F10.20 - ALCOHOL DEPENDENCE, UNCOMPLICATED Status: Chronic (3) Periodontal abscess Code(s): K05.219 - AGGRESSIVE PERIODONTITIS, LOCALIZED, UNSPECIFIED SEVERITY Status: Acute (4) Abscess Code(s): L02.91 - CUTANEOUS ABSCESS, UNSPECIFIED Status: Acute - Plan planned abcess drainage today monitor SDH banana bag anemia MERCEDES cont antibx C&S of abcess
[2020-05-27] MEDS: Lidocaine 5% Patch TD SCH (00:04)
[2020-05-27] MEDS: cefTRIAXone\\ROCEPHIN 1 GM in Sodium Chloride 0.9% 100 ML IVPB SCH (00:05)
[2020-05-27] MEDS: metroNIDAZOLE 500 MG in Premix Bag 1 BAG IVPB SCH ×2 (05:11→14:52)
[2020-05-27] MEDS: Acetaminophen 325 MG TAB PO PRN (05:11)
[2020-05-27 05:34] LABS: Anion Gap 12 mmol/L (10-20); BUN (Urea Nitrogen) Less than 4 mg/dL (7.0-18.7); Calc. Creatinine Clearance 114 mL/min (70-130); Carbon Dioxide 18 mmol/L (22-29); Chloride 103 mmol/L (98-107); Glucose 119 mg/dL (70-105); Magnesium 1.3 mg/dL (1.6-2.6); Potassium 4.3 mmol/L (3.5-5.1); Sodium 129 mmol/L (136-145)
[2020-05-27 05:37] LABS: Phosphorus 1.9 mg/dL (2.3-4.7)
[2020-05-27] MEDS ORDERED: Potassium Phosphate 15 MMOL in Sodium Chloride 0.9% 100 ML IVPB SCH (06:30)
[2020-05-27] MEDS ORDERED: Magnesium Sulfate 4 GM in Sodium Chloride 0.9% 250 ML 250 ML IVPB SCH (06:30)
[2020-05-27] MEDS: NS 0.9% w/ 40 MEQ KCL 1,000 ML IV SCH ×2 (06:32→07:04)
[2020-05-27 06:44] LABS: Band 22 % (5-11); Hemoglobin 8.5 g/dL (12.0-16.0); Lymphocytes 10 % (21-51); MDiff Complete? YES; Mean Corpuscular HGB CONC 34.4 g/dL (32.0-36.0); Mean Corpuscular Hemoglobin 30.1 pg (27.0-31.0); Mean Corpuscular Volume 87.5 fL (78.0-98.0); Mean Platelet Volume 9.4 fL (7.4-10.4); Monocytes 7 % (0-10); Neutrophil 61 % (42-75); Nucleated RBC 1 % (0); Platelet Count 203 thou/uL (130-400); RBC Distribution Width 18.1 % (11.5-14.5); Red Blood Cell (RBC) Count 2.83 mill/uL (4.20-5.40); White Blood Cell (WBC) Count 11.9 thou/uL (4.8-10.8)
[2020-05-27] MEDS: Lidocaine Patch Removal TOP SCH (08:18)
[2020-05-27] MEDS ORDERED: Ondansetron PF 4 MG/2 ML Vial ONE (10:12)
[2020-05-27] MEDS ORDERED: PROPOFOL 200 MG/20 ML VIAL ONE (10:12)
[2020-05-27] MEDS ORDERED: Dexamethasone 20 MG/5 ML VIAL ONE (10:12)
[2020-05-27] MEDS ORDERED: PHENYLEPHRINE-NS 100 MCG/ML 10 ML SYRINGE ONE (10:12)
[2020-05-27] MEDS ORDERED: Lidocaine 1% PF 5 ML VIAL ONE (10:12)
[2020-05-27] MEDS ORDERED: Succinylcholine 200 MG/10 ml SYRINGE FS ONE (10:12)
[2020-05-27] MEDS: Multivitamins, Adult 10 ML, Folic Acid 1 MG, Thiamine HCl 100 MG in Dextrose 5 %-0.45 %... IV SCH (10:46)
--- NOTE | 2020-05-27 11:11 | PDOC.HOSPP ---
- Subjective Encounter Date: 05/27/20 Encounter Time: 11:10 Subjective: still waiting for surgery, still has left jaw pain - Objective Vital Signs & Weight: Vital Signs (12 hours) Temp Pulse Resp BP Pulse Ox 05/27/20 08:00 100 05/27/20 07:48 97.5 F L 100 18 155/108 H 100 05/27/20 05:41 98.3 F 05/27/20 05:11 100.3 F H 05/27/20 03:56 100.8 F H 108 H 18 154/108 H 97 05/27/20 00:00 99.7 F H 102 H 18 125/96 H 98 Weight Admit Weight 111 lb 4.8 oz Weight 111 lb 4.8 oz Most Recent Monitor Data Heart Rate from ECG 108 NIBP 152/95 NIBP BP-Mean 114 Respiration from ECG 27 SpO2 100 I&O: 05/26/20 05/27/20 05/28/20 06:59 06:59 06:59 Intake Total 3855 Output Total 2275 1100 Balance 1580 -1100 Result Diagrams: 05/27/20 04:48 05/27/20 04:48 Additional Labs: Accuchecks 05/26/20 12:21 POC Glucose 93 Hospitalist ROS - Medication Medications: Active Medications Generic Name Dose Route Start Last Admin Trade Name Freq PRN Reason Stop Dose Admin Acetaminophen 650 mg 05/27/20 04:24 05/27/20 05:11 Acetaminophen 325 Mg Tab PO 650 mg Q4H PRN Administration Headache/Fever or Pain Acetaminophen/Codeine Phosphate 1 tab 05/25/20 16:46 05/26/20 09:00 Acetaminophen/Codeine 30-300mg Tablet PO 1 tab Q4H PRN Administration Moderate Pain (4-6) Ceftriaxone Sodium 1 gm/ 100 mls @ 200 mls/hr 05/23/20 22:00 05/27/20 00:05 Sodium Chloride IVPB 100 mls Q24HR YUMIKO Administration Metronidazole 500 mg/ Device 100 mls @ 100 mls/hr 05/23/20 06:00 05/27/20 05:11 IVPB 100 mls Q8HR YUMIKO Administration Multivitamins 10 ml/ Folic 1,011.2 mls @ 150 mls/hr 05/23/20 08:00 05/27/20 10:46 Acid 1 mg/ Thiamine HCl 100 mg IV 1,011.2 mls / Dextrose/Sodium Chloride Q24HR YUMIKO Administration Potassium Chloride/Sodium Chloride 1,000 mls @ 100 mls/hr 05/25/20 09:30 05/27/20 07:04 Ns 0.9% W/ 40 Meq Kcl IV 1,000 mls .Q10H YUMIKO Administration Potassium Phosphate 15 mmol/ 105 mls @ 26.25 mls/hr 05/27/20 06:30 05/27/20 10:09 Sodium Chloride IVPB 05/27/20 14:00 105 mls NOW YUMIKO Administration Lidocaine 1 patch 05/24/20 21:00 05/27/20 00:04 Lidocaine 5% Patch TD 1 patch HS YUMIKO Administration Miscellaneous Medication 1 each 05/25/20 09:00 05/27/20 08:18 Lidocaine Patch Removal TOP 1 each QAM YUMIKO Administration Sodium Chloride 10 ml 05/23/20 09:00 05/27/20 08:18 Flush - Normal Saline 10 Ml Syringe IVF 10 ml Q12HR YUMIKO Administration - Exam General Appearance: awake alert ENT - other findings: 2-3 cm left sub-mandibular abcess Heart: RRR, no murmur Respiratory: CTAB Gastrointestinal: soft, normal bowel sounds Extremities: no edema Hosp A/P (1) Anemia Code(s): D64.9 - ANEMIA, UNSPECIFIED Status: Acute Qualifiers: Anemia type: unspecified type Qualified Code(s): D64.9 - Anemia, unspecified (2) Alcoholism Code(s): F10.20 - ALCOHOL DEPENDENCE, UNCOMPLICATED Status: Chronic (3) Periodontal abscess Code(s): K05.219 - AGGRESSIVE PERIODONTITIS, LOCALIZED, UNSPECIFIED SEVERITY Status: Acute (4) Abscess Code(s): L02.91 - CUTANEOUS ABSCESS, UNSPECIFIED Status: Acute - Plan planned abcess drainage today monitor SDH banana bag anemia MERCEDES cont antibx C&S of abcess
[2020-05-27] MEDS ORDERED: Ophthalmic Irrigation Solution 15 ML ONE (18:32)
[2020-05-27] MEDS ORDERED: Lidocaine 1% w/Epinephrine 1:100K 20 ML VIAL ONE (18:32)
[2020-05-27] MEDS ORDERED: Chlorhexidine Gluconate 15 ML UDCUP SSP ONE (18:32)
[2020-05-27] MEDS ORDERED: Bacitracin Zinc Ointment 30 gm TUBE ONE (18:32)
[2020-05-27] MEDS ORDERED: Fentanyl 100 MCG/2 ML VIAL ONE (18:33)
[2020-05-27] MEDS ORDERED: HYDROmorphone 2 MG/ML VIAL SLOW IVP PRN (20:11)
[2020-05-27] MEDS ORDERED: Promethazine HCl 25 MG/ML VIAL SLOW IVP PRN (20:11)
[2020-05-27] MEDS ORDERED: Meperidine HCl/PF 25 MG/ML VIAL SLOW IVP PRN (20:11)
[2020-05-27] MEDS ORDERED: Promethazine HCl 25 MG/ML VIAL IM PRN (20:11)
[2020-05-27] MEDS ORDERED: Ondansetron HCl/PF 4 MG/2 ML Vial IVP PRN (20:11)
[2020-05-27] MEDS: cloNIDine 0.1 MG TAB PO SCH (21:00)
[2020-05-27] MEDS ORDERED: Clindamycin/D5W 600 MG in Premix Bag 1 BAG IVPB SCH (22:00)
[2020-05-27] MEDS: Chlorhexidine Gluconate 15 ML UDCUP SSP SCH (22:35)
[2020-05-28] MEDS ORDERED: cefTRIAXone\\ROCEPHIN 1 GM in Sodium Chloride 0.9% 100 ML IVPB SCH (01:00)
[2020-05-28] MEDS: NS 0.9% w/ 40 MEQ KCL 1,000 ML IV SCH ×4 (04:05→21:51)
[2020-05-28] MEDS: Lidocaine 5% Patch TD SCH ×2 (04:10→21:50)
[2020-05-28 05:26] LABS: #Lymphocytes 1.2 thou/uL (1.20-3.40); #Monocytes 0.9 thou/uL (0.11-0.59); #Neutrophils 9.8 thou/uL (1.40-6.50); %Basophils 0.2 % (0.0-1.0); %Eosinophils 0.3 % (0.0-10.0); %Lymphocytes 9.7 % (21.0-51.0); %Monocytes 7.2 % (0.0-10.0); %Neutrophils 82.6 % (42.0-75.0); Hemoglobin 8.1 g/dL (12.0-16.0); Mean Corpuscular HGB CONC 33.3 g/dL (32.0-36.0); Mean Corpuscular Hemoglobin 29.8 pg (27.0-31.0); Mean Corpuscular Volume 89.3 fL (78.0-98.0); Mean Platelet Volume 9.8 fL (7.4-10.4); Platelet Count 201 thou/uL (130-400); RBC Distribution Width 20.2 % (11.5-14.5); Red Blood Cell (RBC) Count 2.73 mill/uL (4.20-5.40); White Blood Cell (WBC) Count 11.9 thou/uL (4.8-10.8)
[2020-05-28] MEDS: metroNIDAZOLE 500 MG in Premix Bag 1 BAG IVPB SCH ×2 (05:38→10:29)
[2020-05-28 05:48] LABS: Phosphorus 2.6 mg/dL (2.3-4.7)
[2020-05-28 05:51] LABS: Anion Gap 11 mmol/L (10-20); BUN (Urea Nitrogen) Less than 4 mg/dL (7.0-18.7); Calc. Creatinine Clearance 124 mL/min (70-130); Calcium 7.1 mg/dL (7.8-10.44); Carbon Dioxide 21 mmol/L (22-29); Chloride 101 mmol/L (98-107); Glucose 109 mg/dL (70-105); Magnesium 1.4 mg/dL (1.6-2.6); Potassium 3.6 mmol/L (3.5-5.1); Sodium 129 mmol/L (136-145)
[2020-05-28] MEDS ORDERED: Magnesium Sulfate 4 GM in Sodium Chloride 0.9% 250 ML 250 ML IVPB SCH (07:00)
--- NOTE | 2020-05-28 07:50 | OP ---
DATE OF PROCEDURE: 05/27/2020 PREOPERATIVE DIAGNOSES: She had left buccal vestibular space infection extending to subcutaneous tissue. She had a right palatal space infection and she had nonrestorable teeth #19, 18, 20, and 21 and 2 and 3. POSTOPERATIVE DIAGNOSES: She had left buccal vestibular space infection extending to subcutaneous tissue. She had a right palatal space infection and she had nonrestorable teeth #19, 18, 20, and 21 and 2 and 3. TREATMENT: We did an extraction of tooth #2, 3, 18, 19, 20, and 21; incision and drainage of left buccal vestibular space infection via intraoral route and placement of a [place] drain. ESTIMATED BLOOD LOSS: Less than 30 mL. FINDINGS: Significant periostitis of the left mandibular cortex, significant granulomatous tissue associated with tooth #18, 19, 20, and 21 with significant portion of buccal plate sequestered, significant granulation tissue associated with teeth #2 and 3, teeth #18, 19, 20, and 21; 2 and 3 were type 3 mobile, periodontally involved. 5-10 mL of purulence was expressed post incision and drainage. DISPOSITION: The patient was transferred to the PACU extubated with spontaneous respirations intact. INDICATIONS FOR SURGERY: 44-year-old female, presented to the emergency department with left facial swelling in addition to severe anemia and chronic liver disease. The patient has been admitted in-house to optimization for the operating room. The patient was noted to have metabolic acidosis with potassium levels in the low 1s to 2s. The patient was optimized over the past 2 to 3 days in preparation for surgery. Patient's coags; INR 1.6 and PTT slightly above normal limits. The patient is a candidate to undergo surgery. After clinical and radiographic exam, it was noted that the patient had a nonrestorable teeth #2, 3, 18, 19, 20, 21 with associated odontogenic infection spreading to the left buccal vestibular space with extension to the subcutaneous plane. No cutaneous tissue was appreciated, but noted significant erythema over the left cheek. Recommended incision and drainage with extraction of necessary teeth. The patient had time to ask questions and have them answered. The patient elected to continue with the recommended treatment. Informed consent was completed. DESCRIPTION OF PROCEDURE: On day of surgery, patient was then met in preoperative holding area. Site, identification, procedure were completed and confirmed. The patient was then transferred to operating room C, placed on the operating table in supine position. The patient was then deemed a good candidate to undergo anesthesia. She was induced in a state of general anesthesia and intubated via an oral endotracheal tube. The patient was then prepped and draped in a standard sterile fashion. A surgical tube was secured by the surgical team using a 2-0 silk suture, securing the oral ray to lower dentition. We directed our attention to the right maxilla. Using 1% lidocaine with 100,000 epinephrine, locally infiltrated the middle superior alveolar and posterior superior alveolar nerve blocks for a total of 2.5 mL. Using the forceps, delivered tooth #2 and 3, curettage of site, saline irrigation. No oroantral communication was appreciated. Gel-Foam x1 placed in situ with 3 and 4-0 chromic gut sutures x2. Interrupted sutures were placed. Attention turned to the left fascial space infection and nonrestorable dentition, delivered 3 mL of 1% lidocaine with 1:100,000 epinephrine in left long buccal branch distribution and needed preoperative nerve block. Using a 15 blade, made an incision on the distal buccal aspect of tooth #18 and extending anteriorly and a sulcular incision full-thickness mucoperiosteal flap across the teeth were delivered with elevators and forceps. 18, 19, 20, and 21 noted significant periostitis. Used a straight curette to curettage the lateral cortex and remove any sequestered or necrotic pieces of bone in addition to the periostitis region. Copious saline and Peridex irrigation of site. Using hemostat, bluntly dissected in the subperiosteal plane into the left buccal space down to the level of subcutaneous tissue, 5-10 mL of purulence was expressed. Copious saline irrigation for total of approximately 250 to 300 cc of sterile saline was irrigated. Using a half-inch [place] drain placed in the left buccal space, exiting through the left mucosal 1 cm incision it was secured with 4-0 chromic gut x1 interrupted suture. Gel-Foam was placed at extraction sites and multiple interrupted chromic gut sutures were placed. At this point, site noted to be hemostatic. The patient was extubated without incident and transferred to PACU in stable condition. Job ID: [id number]
[2020-05-28] MEDS: Multivitamins, Adult 10 ML, Folic Acid 1 MG, Thiamine HCl 100 MG in Dextrose 5 %-0.45 %... IV SCH ×2 (08:30→13:19)
[2020-05-28] MEDS: Ferrous Sulfate 325 MG TAB PO SCH (09:18)
[2020-05-28] MEDS: Amlodipine 5 mg/Benazepril 20 mg CAP PO SCH (09:18)
[2020-05-28] MEDS: Chlorhexidine Gluconate 15 ML UDCUP SSP SCH ×2 (09:18→21:50)
[2020-05-28] MEDS: cloNIDine 0.1 MG TAB PO SCH ×2 (09:19→21:50)
[2020-05-28] MEDS: Lidocaine Patch Removal TOP SCH (09:21)
--- NOTE | 2020-05-28 10:43 | PDOC.HOSPP ---
- Subjective Encounter Date: 05/28/20 Encounter Time: 10:40 Subjective: some discomfort in mouth - Objective Vital Signs & Weight: Vital Signs (12 hours) Temp Pulse Resp BP BP Pulse Ox 05/28/20 09:19 115/87 05/28/20 07:30 98.4 F 93 16 117/85 100 05/28/20 04:00 98.5 F 93 18 119/84 100 05/28/20 00:00 97.6 F 94 24 H 128/98 H 97 Weight Admit Weight 111 lb 4.8 oz Weight 111 lb 4.8 oz Most Recent Monitor Data Heart Rate from ECG 108 NIBP 152/95 NIBP BP-Mean 114 Respiration from ECG 27 SpO2 100 I&O: 05/27/20 05/28/20 05/29/20 06:59 06:59 06:59 Intake Total 112 Output Total 1100 800 Balance -1100 -800 112 Result Diagrams: 05/28/20 04:37 05/28/20 04:37 Hospitalist ROS - Medication Medications: Active Medications Generic Name Dose Route Start Last Admin Trade Name Freq PRN Reason Stop Dose Admin Acetaminophen 650 mg 05/27/20 04:24 05/27/20 05:11 Acetaminophen 325 Mg Tab PO 650 mg Q4H PRN Administration Headache/Fever or Pain Acetaminophen/Codeine Phosphate 1 tab 05/25/20 16:46 05/26/20 09:00 Acetaminophen/Codeine 30-300mg Tablet PO 1 tab Q4H PRN Administration Moderate Pain (4-6) Amlodipine/Benazepril HCl 1 cap 05/28/20 09:00 05/28/20 09:18 Amlodipine 5 Mg/Benazepril 20 Mg Cap PO 1 cap DAILY YUMIKO Administration Chlorhexidine Gluconate 15 ml 05/27/20 21:00 05/28/20 09:18 Chlorhexidine Gluconate 15 Ml Udcup SSP 15 ml BID YUMIKO Administration Clonidine 0.1 mg 05/27/20 21:00 05/28/20 09:19 Clonidine 0.1 Mg Tab PO Not Given BID YUMIKO Ferrous Sulfate 325 mg 05/28/20 09:00 05/28/20 09:18 Ferrous Sulfate 325 Mg Tab PO 325 mg DAILY YUMIKO Administration Potassium Chloride/Sodium Chloride 1,000 mls @ 100 mls/hr 05/25/20 09:30 05/28/20 04:06 Ns 0.9% W/ 40 Meq Kcl IV Not Given .Q10H YUMIKO Metronidazole 500 mg/ Device 100 mls @ 100 mls/hr 05/28/20 02:00 05/28/20 10:29 IVPB 100 mls 0200,1000,1800 YUMIKO Administration Ceftriaxone Sodium 1 gm/ 100 mls @ 200 mls/hr 05/28/20 01:00 05/28/20 05:37 Sodium Chloride IVPB 100 mls 0100 YUMIKO Administration Lidocaine 1 patch 05/24/20 21:00 05/28/20 04:10 Lidocaine 5% Patch TD Not Given HS YUMIKO Miscellaneous Medication 1 each 05/25/20 09:00 05/28/20 09:21 Lidocaine Patch Removal TOP 1 each QAM YUMIKO Administration Sodium Chloride 10 ml 05/23/20 09:00 05/28/20 09:21 Flush - Normal Saline 10 Ml Syringe IVF 10 ml Q12HR YUMIKO Administration - Exam General Appearance: awake alert ENT - other findings: swelling L mouth post-op Neck: no JVD Heart: RRR Respiratory: CTAB, no wheezes Gastrointestinal: soft, normal bowel sounds Extremities: no edema Hosp A/P (1) Periodontal abscess Code(s): K05.219 - AGGRESSIVE PERIODONTITIS, LOCALIZED, UNSPECIFIED SEVERITY Status: Acute (2) Abscess Code(s): L02.91 - CUTANEOUS ABSCESS, UNSPECIFIED Status: Acute (3) HTN (hypertension) Code(s): I10 - ESSENTIAL (PRIMARY) HYPERTENSION Status: Acute Qualifiers: Hypertension type: essential hypertension Qualified Code(s): I10 - Essential (primary) hypertension (4) Anemia Code(s): D64.9 - ANEMIA, UNSPECIFIED Status: Acute Qualifiers: Anemia type: unspecified type Qualified Code(s): D64.9 - Anemia, unspecified (5) Alcoholism Code(s): F10.20 - ALCOHOL DEPENDENCE, UNCOMPLICATED Status: Chronic - Plan post-op abcess drainage, multiple tooth extraction cont antibx iv analgesic cont antihypertensivess discuss plans with surgeon
--- NOTE | 2020-05-28 10:51 | PDOC.BPN ---
- Brief Progress Note Encounter Date: 05/28/20 Encounter Time: 10:[address] of head to monitor [facility]
--- NOTE | 2020-05-28 12:45 | CT ---
CT Brain WO Con: 05/28/2020 12:25 PM CLINICAL HISTORY: Follow-up subdural hematoma. IMAGING TECHNIQUE: Multiple CT images were obtained of the brain without IV contrast. COMPARISON: Prior exam dated May 23, 2020 FINDINGS: BRAIN: Evidence of acute infarct: None. Evidence of chronic ischemic change:None. Evidence of intracranial hemorrhage: The subdural hematoma overlying the left frontal convexity demo nstrates a reduced density. The size of the collection is slightly smaller measuring 1.1 cm were previously measured 1.2 cm. Evidence of brain volume loss:There is diffuse generalized cerebral and cerebellar atrophy that appea rs similar. Evidence of midline shift: 3 mm of [id number] midline shift. Ventricles: Normal. No hydrocephalus. SKULL: Intact. VISUALIZED PARANASAL SINUSES: Clear. MASTOID AIR CELLS: Clear. EXTRACRANIAL SOFT TISSUES: Normal. IMPRESSION: Decreased density and slightly decrease in size of the left frontal convexity subdural hematoma . Im proving [id number] midline shift.
--- NOTE | 2020-05-28 17:04 | PDOC.BPN ---
- Brief Progress Note Encounter Date: 05/28/20 Encounter Time: 17:02 SD[facility]-CT- decreased density, size, shift. ie better. Pt having loose stools- sending stool for C Diff.
[2020-05-28] MEDS ORDERED: Clindamycin/D5W 300 MG in Premix Bag 1 BAG IVPB SCH (18:00)
[2020-05-28] MEDS: Clindamycin 150 MG CAP PO SCH ×2 (18:24→23:15)
[2020-05-28] MEDS: Acetaminophen 325 MG TAB PO PRN (23:18)
[2020-05-28] MEDS: Acetaminophen/Codeine 30-300mg Tablet PO PRN (23:19)
[2020-05-29 05:31] LABS: #Eosinphils 0.1 thou/uL (0.0-0.7); #Lymphocytes 1.8 thou/uL (1.20-3.40); #Monocytes 0.9 thou/uL (0.11-0.59); #Neutrophils 8.1 thou/uL (1.40-6.50); %Basophils 0.2 % (0.0-1.0); %Eosinophils 0.9 % (0.0-10.0); %Lymphocytes 16.6 % (21.0-51.0); %Neutrophils 74.3 % (42.0-75.0); Hemoglobin 7.9 g/dL (12.0-16.0); Mean Corpuscular Hemoglobin 29.6 pg (27.0-31.0); Mean Corpuscular Volume 89.7 fL (78.0-98.0); Mean Platelet Volume 9.8 fL (7.4-10.4); Platelet Count 188 thou/uL (130-400); RBC Distribution Width 19.6 % (11.5-14.5); Red Blood Cell (RBC) Count 2.67 mill/uL (4.20-5.40); White Blood Cell (WBC) Count 10.8 thou/uL (4.8-10.8)
[2020-05-29 05:59] LABS: Anion Gap 7 mmol/L (10-20); BUN (Urea Nitrogen) 4 mg/dL (7.0-18.7); Calc. Creatinine Clearance 122 mL/min (70-130); Calcium 6.9 mg/dL (7.8-10.44); Carbon Dioxide 20 mmol/L (22-29); Chloride 107 mmol/L (98-107); Glucose 85 mg/dL (70-105); Magnesium 1.5 mg/dL (1.6-2.6); Potassium 4.4 mmol/L (3.5-5.1); Sodium 130 mmol/L (136-145)
[2020-05-29 06:02] LABS: Phosphorus 1.6 mg/dL (2.3-4.7)
[2020-05-29] MEDS: Clindamycin 150 MG CAP PO SCH ×3 (07:00→17:07)
[2020-05-29] MEDS ORDERED: Magnesium 2 GM/50 ML 2 GM in Premix Bag 1 BAG IVPB SCH (07:15)
[2020-05-29] MEDS ORDERED: Potassium Phosphate 15 MMOL in Sodium Chloride 0.9% 100 ML IVPB SCH (07:15)
[2020-05-29] MEDS: Chlorhexidine Gluconate 15 ML UDCUP SSP SCH ×2 (08:53→20:38)
[2020-05-29] MEDS: Ferrous Sulfate 325 MG TAB PO SCH (08:53)
[2020-05-29] MEDS: Lidocaine Patch Removal TOP SCH (08:57)
[2020-05-29] MEDS: Multivitamins, Adult 10 ML, Folic Acid 1 MG, Thiamine HCl 100 MG in Dextrose 5 %-0.45 %... IV SCH (14:28)
[2020-05-29] MEDS: NS 0.9% w/ 40 MEQ KCL 1,000 ML IV SCH (14:38)
[2020-05-29] MEDS: Amlodipine 5 mg/Benazepril 20 mg CAP PO SCH (14:39)
[2020-05-29] MEDS: cloNIDine 0.1 MG TAB PO SCH ×2 (14:39→20:40)
--- NOTE | 2020-05-29 15:10 | PDOC.HOSPP ---
- Subjective Encounter Date: 05/29/20 Subjective: Feels well. No complaints. No significant pain. Having good bowel movements and voiding well. - Objective Vital Signs & Weight: Vital Signs (12 hours) Temp Pulse Resp BP Pulse Ox 05/29/20 11:19 98.1 F 97 20 99/76 94 L 05/29/20 07:21 98.3 F 87 16 103/76 98 05/29/20 04:00 97.9 F 87 18 96/70 98 Weight Admit Weight 111 lb 4.8 oz Weight 111 lb 4.8 oz Most Recent Monitor Data Heart Rate from ECG 108 NIBP 152/95 NIBP BP-Mean 114 Respiration from ECG 27 SpO2 100 I&O: 05/28/20 05/29/20 05/30/20 06:59 06:59 06:59 Intake Total 3016 960 Output Total 800 Balance -800 3016 960 Result Diagrams: 05/29/20 05:17 05/29/20 05:17 Hospitalist ROS - Medication Medications: Active Medications Generic Name Dose Route Start Last Admin Trade Name Freq PRN Reason Stop Dose Admin Acetaminophen 650 mg 05/27/20 04:24 05/28/20 23:18 Acetaminophen 325 Mg Tab PO 650 mg Q4H PRN Administration Headache/Fever or Pain Acetaminophen/Codeine Phosphate 1 tab 05/25/20 16:46 05/28/20 23:19 Acetaminophen/Codeine 30-300mg Tablet PO 1 tab Q4H PRN Administration Moderate Pain (4-6) Amlodipine/Benazepril HCl 1 cap 05/28/20 09:00 05/29/20 14:39 Amlodipine 5 Mg/Benazepril 20 Mg Cap PO Not Given DAILY YUMIKO Chlorhexidine Gluconate 15 ml 05/27/20 21:00 05/29/20 08:53 Chlorhexidine Gluconate 15 Ml Udcup SSP 15 ml BID YUMIKO Administration Clindamycin HCl 300 mg 05/28/20 18:00 05/29/20 12:55 Clindamycin 150 Mg Cap PO 300 mg Q6HR YUMIKO Administration Clonidine 0.1 mg 05/27/20 21:00 05/29/20 14:39 Clonidine 0.1 Mg Tab PO Not Given BID YUMIKO Ferrous Sulfate 325 mg 05/28/20 09:00 05/29/20 08:53 Ferrous Sulfate 325 Mg Tab PO 325 mg DAILY YUMIKO Administration Lidocaine 1 patch 05/24/20 21:00 05/28/20 21:50 Lidocaine 5% Patch TD Not Given HS YUMIKO Miscellaneous Medication 1 each 05/25/20 09:00 05/29/20 08:57 Lidocaine Patch Removal TOP 1 each QAM YUMIKO Administration Sodium Chloride 10 ml 05/23/20 09:00 05/29/20 08:58 Flush - Normal Saline 10 Ml Syringe IVF 10 ml Q12HR YUMIKO Administration - Exam General Appearance: NAD, awake alert ENT - other findings: Persistent facial swelling more on the left. Heart: RRR, no murmur, no gallops, no rubs, normal peripheral pulses Respiratory: CTAB, no wheezes, no rales, no ronchi, normal chest expansion, no tachypnea, normal percussion Gastrointestinal: soft, non-tender, non-distended, normal bowel sounds, no palpable masses, no hepatomegaly, no splenomegaly, no bruit Extremities: no cyanosis, no clubbing, no edema Hosp A/P (1) Anemia Code(s): D64.9 - ANEMIA, UNSPECIFIED Status: Acute Qualifiers: Anemia type: unspecified type Qualified Code(s): D64.9 - Anemia, unspe cified (2) HTN (hypertension) Code(s): I10 - ESSENTIAL (PRIMARY) HYPERTENSION Status: Acute Qualifiers: Hypertension type: essential hypertension Qualified Code(s): I10 - E ssential (primary) hypertension (3) Periodontal abscess Code(s): K05.219 - AGGRESSIVE PERIODONTITIS, LOCALIZED, UNSPECIFIED SEVERITY Status: Acute (4) Subdural hematoma Code(s): S06.5X9A - TRAUM SUBDR HEM W LOC OF UNSP DURATION, INIT Status: Acute (5) Alcoholism Code(s): F10.20 - ALCOHOL DEPENDENCE, UNCOMPLICATED Status: Chronic (6) Hyponatremia Code(s): E87.1 - HYPO-OSMOLALITY AND HYPONATREMIA Status: Acute - Plan Peridental abscess: Converted off of IV antibiotics to p.o. clindamycin. No significant pain. Discussed with Dr. Henson. Anticipate discharge with p.o. clindamycin. He wi ll manage her antibiotics and pain medications and follow her up as an outpatient. Hypertension: Patient's blood pressure is actually been running low over the last 24 hours of medications have been held. Continue to monitor possibly able to DC medicine soon. Subdural hematoma: Chronic and stable. Appreciate neurosurgery evaluation. Anemia: Chronic. May be secondary to alcohol use. Does not warrant transfusion today. Alcoholism: No signs of withdrawal at this time. Can continue with folate and thiamine and multivitamin but transition to p.o. Hyponatremia: Likely secondary to her chronic alcoholism. Will likely improve as she is able to eat better following her dental surgery. Disposition: We will DC her IVs as much as possible today. We will get her ambulating more today. If she does okay with that anticipate discharge in the morning.
--- NOTE | 2020-05-29 16:06 | PRG ---
DATE OF SERVICE: 05/29/2020 HISTORY OF PRESENT ILLNESS: A 24-hour status post extraction of teeth #2, #3, #18, #19, #20, #21 with incision and drainage of left buccal space infection . She is accepting oral intake, ambulating. Pain is well controlled. mild left facial swelling consistent with postop day 1. All surgical sites were hemostatic. No purulence appreciated. Boston drain in place and removed at bedside. Mild tenderness to palpation. No floor of mouth elevation. No pharyngeal bulging. Uvula is midline. LABORATORY DATA: Labs; aerobic, anaerobic cultures pending for sensitivity. IMPRESSION: Satisfactory postop course. PLAN: Continue IV antibiotics, ceftriaxone, and metronidazole while in-house. Okay to transition to clindamycin 600 mg q.8 hours. We will transition to clindamycin 300 mg q.6 hours x1 week once discharged. Pending length of duration of stay. From an Oral Maxillofacial Surgery standpoint, the patient okay to be discharged and will follow up with [facility] rolled seat trimmer in 1 week. The patient has existing medical conditions that she is currently being managed with. We will follow the patient while in-house. Job ID: [id number]
[2020-05-29] MEDS: Lidocaine 5% Patch TD SCH (20:38)
[2020-05-29] MEDS: Acetaminophen/Codeine 30-300mg Tablet PO PRN (20:38)
[2020-05-30] MEDS: Clindamycin 150 MG CAP PO SCH ×3 (00:52→13:02)
[2020-05-30 05:00] LABS: #Eosinphils 0.1 thou/uL (0.0-0.7); #Lymphocytes 2.1 thou/uL (1.20-3.40); #Monocytes 0.9 thou/uL (0.11-0.59); #Neutrophils 9.9 thou/uL (1.40-6.50); %Basophils 0.1 % (0.0-1.0); %Eosinophils 0.7 % (0.0-10.0); %Lymphocytes 16.2 % (21.0-51.0); %Monocytes 7.1 % (0.0-10.0); %Neutrophils 75.9 % (42.0-75.0); Hemoglobin 7.9 g/dL (12.0-16.0); Mean Corpuscular HGB CONC 31.8 g/dL (32.0-36.0); Mean Corpuscular Volume 91.1 fL (78.0-98.0); Mean Platelet Volume 10.2 fL (7.4-10.4); Platelet Count 191 thou/uL (130-400); RBC Distribution Width 20.1 % (11.5-14.5); Red Blood Cell (RBC) Count 2.73 mill/uL (4.20-5.40); White Blood Cell (WBC) Count 13.1 thou/uL (4.8-10.8)
[2020-05-30 05:12] LABS: Anion Gap 10 mmol/L (10-20); BUN (Urea Nitrogen) 5 mg/dL (7.0-18.7); Calc. Creatinine Clearance 130 mL/min (70-130); Carbon Dioxide 18 mmol/L (22-29); Chloride 103 mmol/L (98-107); Glucose 86 mg/dL (70-105); Magnesium 1.4 mg/dL (1.6-2.6); Potassium 4.4 mmol/L (3.5-5.1); Sodium 127 mmol/L (136-145)
[2020-05-30 05:15] LABS: Phosphorus 2.1 mg/dL (2.3-4.7)
[2020-05-30] MEDS ORDERED: Magnesium Sulfate 4 GM in Sodium Chloride 0.9% 250 ML 250 ML IVPB SCH (06:30)
[2020-05-30] MEDS: Chlorhexidine Gluconate 15 ML UDCUP SSP SCH (08:34)
[2020-05-30] MEDS: Lidocaine Patch Removal TOP SCH (08:35)
[2020-05-30] MEDS: Ferrous Sulfate 325 MG TAB PO SCH (08:35)
[2020-05-30] MEDS ORDERED: Folic Acid 1 MG TAB PO SCH (09:00)
[2020-05-30] MEDS ORDERED: Thiamine 100 MG TAB PO SCH (09:00)
[2020-05-30] MEDS ORDERED: Multivitamin W/ Minerals 1 TAB PO SCH (09:00)
[2020-05-30] MEDS: cloNIDine 0.1 MG TAB PO SCH (09:28)
[2020-05-30] MEDS: Amlodipine 5 mg/Benazepril 20 mg CAP PO SCH (09:28)
[2020-05-30 11:36] VITALS: BP 111/80; TEMP 98.7
--- NOTE | 2020-05-30 17:38 | PDOC.DS.DS ---
Provider - Provider Date of Admission: 05/22/20 23:26 Date of Discharge: 05/30/20 Admitting Provider: Fan Franklin MD Consultations: Pulmonary, Other (omfs / nuerosurgery) Primary Care Physician: Unknown Course - Hospital Course Hospital Course: Case of an 44y/o female with the stated pmhx who presented to hospital after been brought by police for been found wandering the streets and drinking. patient was found to be hypoglycemic and and with mouth swelling. patient was diagnosed with a periorthodontal abscess for which she receive iv abx and a ID. patient was observe overnight and had no complications. patient will be discharge with po clindamycin and will f/u with surgeon as opd. patient was oriented about her conditions tx and f/u plan refers to agree and understand. medication review was done and antihtn medication were placed on hold - Labs Lab Results: 05/30/20 04:28 05/30/20 04:28 Abnormal Lab Results - Last 48 hrs 05/29/20 05:17: Sodium 130 L, Carbon Dioxide 20 L, Anion Gap 7 L, BUN 4 L, C reatinine 0.46 L, Calcium 6.9 L, Magnesium 1.5 L 05/29/20 05:17: RBC 2.67 L, Hgb 7.9 L, Hct 23.9 L, RDW 19.6 H, Lymphocytes % 16.6 L, Neutrophils # 8.1 H, Monocytes # 0.9 H 05/29/20 05:17: Phosphorus 1.6 L 05/30/20 04:28: Sodium 127 L, Carbon Dioxide 18 L, BUN 5 L, Creatinine 0.43 L, Calcium 7.0 L, Magnesium 1.4 L 05/30/20 04:28: WBC 13.1 H, RBC 2.73 L, Hgb 7.9 L, Hct 24.8 L, MCHC 31.8 L, RDW 20.1 H, Neutrophils % 75.9 H, Lymphocytes % 16.2 L, Neutrophils # 9.9 H, Monocytes # 0.9 H 05/30/20 04:28: Phosphorus 2.1 L Microbiology - Entire Visit 05/27/20 19:57 Mouth - Left Bacterial Culture - Preliminary Presumptive Marie albicans 05/27/20 19:57 Mouth - Left Anaerobic Culture - Preliminary 05/28/20 17:45 Stool C. difficile GDH Antigen & Toxins - Final 05/22/20 22:32 Venous blood - Right Hand Blood Culture - Final NO GROWTH IN 5 DAYS 05/22/20 22:32 Venous blood - Right Arm Blood Culture - Final NO GROWTH IN 5 DAYS - Physical Exam Vitals: Vital Signs (12 hours) Temp Pulse Resp BP Pulse Ox 05/30/20 11:32 98.7 F 86 16 111/80 98 05/30/20 08:00 99 05/30/20 07:48 99 F 99 16 121/82 97 Weight Admit Weight 111 lb 4.8 oz Weight 111 lb 4.8 oz Most Recent Monitor Data Heart Rate from ECG 108 NIBP 152/95 NIBP BP-Mean 114 Respiration from ECG 27 SpO2 100 Physical Exam: The patient was seen and examined on the day of discharge. Plan - Discharge Medications Prescriptions: Clindamycin [Cleocin] 300 mg PO Q6HR 7 Days #28 cap Home Medications: Medication Instructions Recorded Confirmed Type Gabapentin [Gabapentin Oral 6 ml PO TID 05/28/20 05/28/20 History Solution] Clindamycin [Cleocin] 300 mg PO Q6HR 7 Days #28 cap 05/30/20 Rx Allergies: Penicillins Allergy (Intermediate, Verified 08/28/19 00:20) Rash - Discharge Instructions Discharge Instructions:: FOLLOW UP WITH DR HENSON IN ONE WEEK IN OFFICE, CALL [phone] TO MAKE AN APPOINTMENT. - Follow up Plan Referrals: Parrish Henson, [facility] [Active] - 7 Days Unknown,Unknown [Primary Care Provider] - 10 Days Disposition: HOME Quality - Care Measures CORE MEASURES:: N/A
--- NOTE | 2020-06-02 06:19 | PQF ---
CLINICAL DOCUMENTATION CLARIFICATION FORM: Dear : David Castellon Date / Time: 06/02/2020 0618 Please exercise your independent, professional judgment in responding to the clarification form. Clinical indicators are provided on the bottom of this form for your review Based on the clinical indicators on admit, can you determine if Sepsis was present at the time of admission? Diagnosis: Sepsis Present on Admission (POA): [ x] Yes [ ] No [ ] Unable to determine Physician Signature: Date/Time: For continuity of documentation, please document condition throughout progress notes and discharge summary. Thank You. To be completed by CDI/Coding staff for physician review: Present Clinical Indicators - Signs / Symptoms / Labs Results and Location in Medical Record [X] WBC 14.5, Plt count 482, Band 13, Neutrophils 803, lactic acid 27.2 Laboratory 05/22 [X] Blood culture no growth in 5 days Microbiology 05/22 [X] Mouth abscess culture: Marie albicans, prevotella buccae Microbiology 05/27 [X] BP 114/87, Pulse 119, Resp 22, Temp 98.0 Vital signs 05/22 [X] SIRS scoring: Yes, pt did meet criteria ED notes p8 05/22 [X] Confusion H&p p1 05/22 Dr Truong [X] Acidosis H&p p3 05/22 Dr Truong [X] UTI H&p p3 05/22 Dr Truong [X] Sepsis HPN p3 05/25 Dr Al [X] Periodontal abscess HPN p3 05/25 Dr Al Present Risk Factors Results and Location in Medical Record [X] HTN H&p p1 05/22 Dr Truong [X] UTI H&p p3 05/22 Dr Truong [X] Periodontal abscess HPN p3 05/25 Dr Al Present Treatments Results and Location in Medical Record [X] IV Vancomycin 1 gm AUG 15 [X] IVF NS 1L AUG 15 [X] IV Clindamycin 600 mg AUG 15 [X] IV Cefepime 2 gm AUG 15 [X] IV Ceftriaxone 1 gm AUG 15 [X] I&D Operative report Dr Henson 05/27 CDS/C[employer] Box Person Signature: Celeste Brownjeremie Phone #: ext [phone] Date/Time: 617 This is a permanent part of the Medical Record [facility]
== END 2020-05-30 13:40 | disposition home or self-care (01) | DRG 853 ==
LOC: ERS 20:07 → CCU 23:26 → 2SE 05-24 17:10
PROVIDERS: ADMIT Internal Medicine; ATTEND Internal Medicine
PROC: HZ2ZZZZ Detoxification Services for Substance Abuse Treatment (ICD-10-PCS; 2020-05-22)
PROC: 30233N1 Transfusion of Nonautologous Red Blood Cells into Peripheral Vein, Percutaneous Approach (ICD-10-PCS; 2020-05-23)
PROC: 0C940ZZ Drainage of Buccal Mucosa, Open Approach (ICD-10-PCS; principal; 2020-05-27)
PROC: 0CDXXZ1 Extraction of Lower Tooth, Multiple, External Approach (ICD-10-PCS; 2020-05-27)
PROC: 0CDWXZ1 Extraction of Upper Tooth, Multiple, External Approach (ICD-10-PCS; 2020-05-27)
PROC: 8E0ZXY6 Isolation (ICD-10-PCS; 2020-05-28)
DX: A41.9 Sepsis, unspecified organism (principal); I62.02 Nontraumatic subacute subdural hemorrhage; I62.03 Nontraumatic chronic subdural hemorrhage; E46 Unspecified protein-calorie malnutrition; R64 Cachexia; E87.2 Acidosis; Z68.1 Body mass index [BMI] 19.9 or less, adult; E87.1 Hypo-osmolality and hyponatremia; K05.219 Aggressive periodontitis, localized, unspecified severity; Z20.828 Contact with and (suspected) exposure to other viral communicable diseases; M27.3 Alveolitis of jaws; F10.20 Alcohol dependence, uncomplicated; Y90.1 Blood alcohol level of 20-39 mg/100 ml; F17.210 Nicotine dependence, cigarettes, uncomplicated; K70.9 Alcoholic liver disease, unspecified; E87.6 Hypokalemia; E83.42 Hypomagnesemia; E87.8 Other disorders of electrolyte and fluid balance, not elsewhere classified; D64.9 Anemia, unspecified; E16.2 Hypoglycemia, unspecified; G62.9 Polyneuropathy, unspecified; Z28.21 Immunization not carried out because of patient refusal; Z88.0 Allergy status to penicillin; Z79.899 Other long term (current) drug therapy
CPT/HCPCS: 0240U; 36415; 36416; 36430; 51701; 70450; 70491; 71045; 71275; 74177; 80048; 80053; 80306; 80307; 81003; 81015; 81025; 82010; 82550; 82607; 82693; 82746; 83540; 83605; 83615; 83690; 83735; 83930; 84100; 84443; 84466; 84484; 85025; 85060; 85610; 85730; 86850; 86870; 86900; 86901; 86921; 87040; 87070; 87076; 87205; 87324; 87449; 93005; 96365; 96366; 96367; 96375; J0692; J0696; J1100; J2405; J2704; J3010; J3370; J3411; J3475; J3480; J3490; J7042; J7050; P9016; Q9967

== ENCOUNTER 2020-08-02 18:51 | Inpatient (IN) | payer OTHER ==
--- NOTE | 2020-08-02 19:36 | RAD ---
EXAM: Chest PA and lateral: HISTORY: Pain COMPARISON: 05/14/2008 FINDINGS: Heart: Normal cardiac silhouette Aorta: Unremarkable Pulmonary vessels: Normal Costophrenic angles: Costophrenic angles are clear. Lungs: No consolidation or masses. Pneumothorax: No pneumothorax Osseous structures: No osseous abnormalities IMPRESSION: No acute cardiopulmonary process.
[2020-08-02 19:37] LABS: #Basophils 0.1 thou/uL (0.0-0.2); #Lymphocytes 4.3 thou/uL (1.20-3.40); #Monocytes 0.3 thou/uL (0.11-0.59); #Neutrophils 5.8 thou/uL (1.40-6.50); %Basophils 1.4 % (0.0-1.0); %Eosinophils 0.2 % (0.0-10.0); %Lymphocytes 40.9 % (21.0-51.0); %Monocytes 2.8 % (0.0-10.0); %Neutrophils 54.7 % (42.0-75.0); Hemoglobin 11.4 g/dL (12.0-16.0); Mean Corpuscular HGB CONC 34.7 g/dL (32.0-36.0); Mean Corpuscular Hemoglobin 32.3 pg (27.0-31.0); Mean Corpuscular Volume 93.1 fL (78.0-98.0); Mean Platelet Volume 8.9 fL (7.4-10.4); Platelet Count 300 thou/uL (130-400); RBC Distribution Width 13.8 % (11.5-14.5); Red Blood Cell (RBC) Count 3.54 mill/uL (4.20-5.40); White Blood Cell (WBC) Count 10.6 thou/uL (4.8-10.8)
[2020-08-02 19:56] LABS: ALT (SGPT) 9 U/L (8-55); AST (SGOT) 38 U/L (5-34); Albumin 2.3 g/dL (3.5-5.0); Alkaline Phosphatase 189 U/L (40-110); Anion Gap 20 mmol/L (10-20); BUN (Urea Nitrogen) Less than 4 mg/dL (7.0-18.7); Bilirubin, Total 1.2 mg/dL (0.2-1.2); Calc. Creatinine Clearance 0 mL/min (70-130); Calcium 7.7 mg/dL (7.8-10.44); Carbon Dioxide 28 mmol/L (22-29); Chloride 92 mmol/L (98-107); Globulin 4.9 g/dL (2.4-3.5); Glucose 95 mg/dL (70-105); Protein, Total 7.2 g/dL (6.0-8.3)
[2020-08-02 20:07] LABS: Sodium 138 mmol/L (136-145)
[2020-08-02 20:21] LABS: Potassium 1.6 mmol/L (3.5-5.1)
--- NOTE | 2020-08-02 21:33 | PDOC.FPRHP ---
- History of Present Illness Chief Complaint: Abdominal Pain History of Present Illness: Patient is a 44 yo female with history of sickle cell disease, alcoholism, hypertension, and chronic pancreatitis presents with complaint of loose watery bowel movements for the past 3 days accompanied by generalized abdominal pain and morning vomiting. Patient states her stools are very watery, brown in color (although occasionally has 1 black BM, denies aiden blood). She has still been able to eat soft solids such as mashed potatoes and bananas during this time. She says she has not had a good solid BM since her hospital admission in May 2020. She denies any fever/chills, chest pain, extremity pain, edema. No sick contacts at home. During her workup in the Emergency Department she was found to have a Potassium of 1.6 and Magnesium of 1.5, prompting admission. ED Course: Given 2 g Mag, 40 mEq oral KCl, 40 mEq IV KCl - Allergies/Adverse Reactions Allergies Allergy/AdvReac Type Severity Reaction Status Date / Time Penicillins Allergy Intermediate Rash Verified 08/28/19 00:20 - Home Medications Medication Instructions Recorded Confirmed Type Gabapentin [Gabapentin Oral 6 ml PO TID 05/28/20 08/02/20 History Solution] Amlodipine Besylate [amLODIPine 10 mg PO DAILY 08/02/20 08/02/20 History Besylate] Chlorthalidone 25 mg PO DAILY 08/02/20 08/02/20 History - History PMHx: Sickle cell, HTN, GERD, Tobacco & Alcohol abuse, Neuropathy, Sinus tachycardia, Chronic pancreatitis PSHx: elbow surgery, LTCS x 1 FHx: CAD, Diabetes, Brother with seizures Social: smokes 3 cigs/day since age 5, drinks 4 beers/day, previous admissions involving alcoholism - Review of Systems General: reports: fatigue. denies: fever/chills ENT: denies: nasal congestion, rhinorrhea Respiratory: denies: cough, congestion, shortness of breath Cardiovascular: denies: chest pain, palpitation, edema Gastrointestinal: reports: nausea, vomiting, diarrhea, abdominal pain. denies: constipation, GI bleeding Genitourinary: denies: dysuria Skin: denies: rashes, lesions Musculoskeletal: denies: pain, tenderness, swelling, arthritis/arthralgias Neurological: denies: weakness - Vital signs BP: 112/76 HR: 74 RR: 15 Tmax: 98.2F Pox: 100% on RA Wt: 50.4 kg - Physical Exam Constitutional: NAD, awake, alert and oriented -Constitutional: cachectic appearance HEENT: normocephalic and atraumatic, EOMI, conjunctiva clear, no scleral icterus, grossly normal vision, grossly normal hearing, MMM Neck: supple, FROM Chest: no-tender to palpation, no lesions Heart: RRR, normal S1/S2, no murmurs/rubs/gallops, pulses present, no edema Lungs: CTAB, no respiratory distress, good air movement, no wheezing Abdomen: soft, bowel sounds present -Abdomen: mildly TTP in all quadrants Musculoskeletal: normal structure -Musculoskeletal: leg braces on lower limbs Neurological: no focal deficit Skin: no rash/lesions, good turgor, no jaundice Heme/Lymphatic: no unusual bruising or bleeding Psychiatric: normal mood and affect, intact recent and remote memory FMR H&P: Results - Labs Result Diagrams: 08/02/20 19:05 08/02/20 19:05 Lab results: WBC 10.6 thou/uL (4.8-10.8) 08/02/20 19:05 Hgb 11.4 g/dL (12.0-16.0) L 08/02/20 19:05 Hct 33.0 % (36.0-47.0) L 08/02/20 19:05 MCV 93.1 fL (78.0-98.0) 08/02/20 19:05 Plt Count 300 thou/uL (130-400) 08/02/20 19:05 Neutrophils % 54.7 % (42.0-75.0) 08/02/20 19:05 Sodium 138 mmol/L (136-145) 08/02/20 19:05 Potassium 1.6 mmol/L (3.5-5.1) L* 08/02/20 19:05 Chloride 92 mmol/L (98-107) L 08/02/20 19:05 Carbon Dioxide 28 mmol/L (22-29) 08/02/20 19:05 BUN Less than 4 mg/dL (7.0-18.7) L 08/02/20 19:05 Creatinine 0.58 mg/dL (0.6-1.1) L 08/02/20 19:05 Glucose 95 mg/dL (70-105) 08/02/20 19:05 Calcium 7.7 mg/dL (7.8-10.44) L 08/02/20 19:05 Total Bilirubin 1.2 mg/dL (0.2-1.2) 08/02/20 19:05 AST 38 U/L (5-34) H 08/02/20 19:05 ALT 9 U/L (8-55) 08/02/20 19:05 Alkaline Phosphatase 189 U/L (40-110) H 08/02/20 19:05 Serum Total Protein 7.2 g/dL (6.0-8.3) 08/02/20 19:05 Albumin 2.3 g/dL (3.5-5.0) L 08/02/20 19:05 FMR H&P: A/P - Problem List (1) Hypokalemia Current Visit: Yes Status: Acute Priority: High Code(s): E87.6 - HYPOKALEMIA (2) Hypomagnesemia Current Visit: Yes Status: Acute Code(s): E83.42 - HYPOMAGNESEMIA (3) HTN (hypertension) Current Visit: Yes Status: Chronic Code(s): I10 - ESSENTIAL (PRIMARY) HYPERTENSION Qualifiers: Hypertension type: essential hypertension Qualified Code(s): I10 - Essential (primary) hypertension (4) Alcoholism Current Visit: Yes Status: Chronic Code(s): F10.20 - ALCOHOL DEPENDENCE, UNCOMPLICATED - Plan Hypokalemia, severe -admission K 1.6, Mag 1.5, Phos 2.3 -will replace with oral and IV KCl -q2h BMP until K >2.5, then space out to q4h thereafter -place in IMCU for close monitoring until K stable -EKG: NSR, rate 83 bpm, QTc 462, occasional PVCs -CT abdomen/pelvis W/contrast pending -CXR: no acute cardiopulmonary process Hypomagnesemia -plan as above Alcoholism -place on ASE protocol -reportedly drinks 4 beers/day -had recent admission in May 2020 involving complications from Alcohol use -AST 38, ALT 9, Alk Phos 189 -check UDS given hx of past substance abuse Abdominal Pain, unknown cause Hx of Chronic Pancreatitis -Lipase 25, reports vomiting episodes in morning only for the past 1 week, still tolerating eating soft solids -May 2020 CT abd/pelvis: severe hepatic steatosis & hepatomegaly, multiple small low-density lesions within pancreas may represent pseudocyst formation. Cystic pancreatic neoplasia cannot be excluded. Recommend short-term follow up with abdominal MRI w/w/o contrast in 3 months. Cholelithiasis. -may consider abdominal MRI based of results of today's currently pending CT abdomen/pelvis Sickle Cell Disease -does not appear to be in current crisis -Hgb 11.4, Hct 33, WBC 10.6 Neuropathy -continue home Gabapentin Hypertension -continue home Amlodipine and Chlorthalidone Diet: NPO, pending further imaging studies VTE: Lovenox Code status: FULL PCP: KARELY Mortensen Dispo: Stable, admit to inpatient on IMCU for electrolyte replacement and monitoring. Anticipate LOS > 48 hours. Addendum - Attending - Attending Attestation Date/Time: 08/02/20 3131 I personally evaluated the patient and discussed the management with Dr. Terrell. I agree with the History, Examination, Assessment and Plan documented above with any addition or exceptions noted below. approx 1 wk N/V and 2-3 days diarrhea. mild abdominal pain. marked hypokalemia. IMCU for electrolyte repletion.
[2020-08-02] MEDS ORDERED: Potassium Chloride 20 MEQ TAB ONE (21:43)
[2020-08-02] MEDS ORDERED: Magnesium 2 GM/50 ML BAG (IN WATER) ONE (21:43)
[2020-08-02] MEDS ORDERED: Electrolyte Replacement Protocol 1 EACH IVPB PRN (21:44)
[2020-08-02] MEDS ORDERED: Calcium Carbonate 500 MG ChewTAB PO PRN (21:44)
[2020-08-02] MEDS ORDERED: Acetaminophen 650 MG Suppository PR PRN (21:44)
[2020-08-02] MEDS ORDERED: Ondansetron PF 4 MG/2 ML Vial IVP PRN (21:44)
[2020-08-02] MEDS ORDERED: Potassium Chloride 40 MEQ in Sodium Chloride 0.9% 250 ML 250 ML IVPB SCH (21:45)
[2020-08-02 22:51] LABS: Phosphorus 2.3 mg/dL (2.3-4.7)
[2020-08-02 23:11] LABS: BHCG - Serum Negative (NEGATIVE); Pregs Control Background? CLEAR/WHITE (CLR/WHITE); Pregs Control Bar Appear? YES (CONTROL BAR)
[2020-08-02 23:26] LABS: Anion Gap 20 mmol/L (10-20); BUN (Urea Nitrogen) Less than 4 mg/dL (7.0-18.7); Calc. Creatinine Clearance 0 mL/min (70-130); Calcium 7.5 mg/dL (7.8-10.44); Carbon Dioxide 27 mmol/L (22-29); Chloride 93 mmol/L (98-107); Glucose 85 mg/dL (70-105); Sodium 138 mmol/L (136-145)
--- NOTE | 2020-08-02 23:44 | CT ---
EXAM: CT ABDOMEN AND PELVIS HISTORY: Abdominal pain COMPARISON: 05/22/2020 Procedure: Multiple contiguous axial images were obtained and a CT of the abdomen and pelvis with IV contrast. C oronal reformats were performed. FINDINGS: Lower Chest: within normal limits. Vessels: Normal caliber aorta. Heart: Normal heart Abdomen: Portal vein:Patent Gallbladder: Contracted. There is evidence of cholelithiasis Liver: Diffuse hypoattenuation due to extensive hepatic steatosis Pancreas: Multiple hypodensities involving the uncinate process and head of the pancreas, compatible with cystic lesions. Applied Exercise Physiologist cystic lesions in the head of the pancreas measured 2.0 x 1.5 and 1.8 x 1.7 cm. The cystic lesions appear to have attenuation coefficients suggesting a simple cyst . There is mild hypoattenuation of the head of the pancreas and proximal body of the pancreas. Spleen: within normal limits. Adrenals: within normal limits. Kidneys: Symmetric enhancement. No obstructive uropathy. Peritoneum: No ascites or free air, no fluid collection. Bowel: Limited evaluation due to the lack of oral contrast administration. No evidence of bowel obstr uction. Ileocecal junction is unremarkable. Normal caliber appendix. Scattered fecal material in a nondistended, nondilated colon. Nonspecific fatty infiltration of the right hemicolon mucosa. Slight mucosal thickening of the sigmoid colon which may in part be due to inadequate distention. Mesentery and Retroperitoneum: No enlarged mesenteric or retroperitoneal lymph nodes. Abdominal Wall: within normal limits. Pelvis: Reproductive Organs: Note is made of an intrauterine device Pelvis: No mass, lymphadenopathy, free air or free fluid. Bladder: within normal limits. Bones: within normal limits. IMPRESSION: 1. Redemonstration of extensive hepatic steatosis 2. Nonspecific fatty infiltration of the right hemicolon mucosa. Mucosal prominence of the sigmoid co johan likely due to inadequate distention 3. Interval increase in size of multiple cysts involving the head and uncinate process of the pancrea s. There is also hypoattenuation of the proximal body of the pancreas. Correlate for possible pseudocyst from remote bouts of pancreatitis. Possibility of mild pancreatitis cannot be excluded.
[2020-08-02] MEDS ORDERED: Potassium Chloride 40 MEQ in Premix Bag 1 BAG IVPB SCH (23:45)
[2020-08-02] MEDS ORDERED: Potassium Chloride 20 MEQ TAB PO SCH (23:45)
[2020-08-02 23:56] LABS: SARS-CoV-2 NAA Rapid Test Not Detected (NotDetected)
[2020-08-03] MEDS: Lactated Ringer's 1,000 ML IV SCH ×2 (01:23→12:12)
[2020-08-03 02:23] LABS: Amphetamine Not Detected (NotDetected); Barbiturates Screen Not Detected (NotDetected); Benzodiazepine Screen Not Detected (NotDetected); Cocaine Metabolite Screen Not Detected (NotDetected); Medtox Control Line Valid? VALID (VALID); Medtox Reader # READER 4; Methadone Not Detected (NotDetected); Methamphetamine Not Detected (NotDetected); Opiate Screen Not Detected (NotDetected); Oxycodone Screen Not Detected (NotDetected); Phencyclidine (PCP) Not Detected (NotDetected); THC/Cannabinoid Screen Not Detected (NotDetected); Tricyclic Screen Not Detected (NotDetected)
[2020-08-03 04:23] LABS: Anion Gap 17 mmol/L (10-20); BUN (Urea Nitrogen) Less than 4 mg/dL (7.0-18.7); Calc. Creatinine Clearance 124 mL/min (70-130); Calcium 7.2 mg/dL (7.8-10.44); Carbon Dioxide 29 mmol/L (22-29); Chloride 98 mmol/L (98-107); Glucose 64 mg/dL (70-105); Sodium 141 mmol/L (136-145)
[2020-08-03 04:25] LABS: ALT (SGPT) 9 U/L (8-55); AST (SGOT) 46 U/L (5-34); Alkaline Phosphatase 159 U/L (40-110); Anion Gap 15 mmol/L (10-20); BUN (Urea Nitrogen) Less than 4 mg/dL (7.0-18.7); Calc. Creatinine Clearance 124 mL/min (70-130); Calcium 7.3 mg/dL (7.8-10.44); Carbon Dioxide 30 mmol/L (22-29); Chloride 97 mmol/L (98-107); Glucose 65 mg/dL (70-105); Sodium 140 mmol/L (136-145)
[2020-08-03 04:36] LABS: Potassium 2.4 mmol/L (3.5-5.1); Potassium 2.5 mmol/L (3.5-5.1)
[2020-08-03 04:52] LABS: Band 2 % (5-11); Eosinophils 1 % (0-10); Hemoglobin 9.3 g/dL (12.0-16.0); Lymphocytes 34 % (21-51); MDiff Complete? YES; Mean Corpuscular HGB CONC 35.2 g/dL (32.0-36.0); Mean Corpuscular Hemoglobin 32.7 pg (27.0-31.0); Mean Corpuscular Volume 92.8 fL (78.0-98.0); Mean Platelet Volume 8.7 fL (7.4-10.4); Monocytes 2 % (0-10); Neutrophil 61 % (42-75); Nucleated RBC 1 % (0); Platelet Count 219 thou/uL (130-400); RBC Distribution Width 13.9 % (11.5-14.5); Red Blood Cell (RBC) Count 2.84 mill/uL (4.20-5.40); Target Cells MODERATE= 6-15 cells (100X) (0-1/hpf); White Blood Cell (WBC) Count 7.3 thou/uL (4.8-10.8)
--- NOTE | 2020-08-03 05:32 | PDOC.FM ---
- Subjective Subjective: Ms. Cha is doing better this morning than when she came in, but she is still having diarrhea, nausea with dry heave this am, and abdominal pain. She states "it feels like I am having period cramps but I haven't had a period in 4 years". She characterizes the pain as 7 out of 10, whereas it was about 9 out of 10 when she came to the ED. She is wanting to try to eat some soup. - Objective Vital Signs & Weight: Vital Signs (12 hours) Temp Pulse Ox 08/03/20 01:07 100 08/03/20 01:00 98.6 F Weight Weight 57.153 kg Most Recent Monitor Data Heart Rate from ECG 85 NIBP 122/77 NIBP BP-Mean 92 Respiration from ECG 18 SpO2 100 I&O: 08/01/20 08/02/20 08/03/20 06:59 06:59 06:59 Intake Total 550 Output Total 600 Balance -50 Result Diagrams: 08/03/20 03:43 08/03/20 09:00 Phys Exam - Physical Examination Constitutional: NAD Neck: supple, full ROM Respiratory: no wheezing, clear to auscultation bilateral Cardiovascular: RRR, no significant murmur Gastrointestinal: soft, no distention, positive bowel sounds TTP in LLQ with rebound tenderness Neurological: non-focal, moves all 4 limbs Psychiatric: normal affect, A&O x 3 Dx/Plan - Plan Plan: This is a 44F who presented for abdominal pain, vomiting, and diarrhea and was admitted for electrolyte abnormalities. Hypokalemia, severe -admission K 1.6 > 2.4 -s/p 160mEq KCl. 40mEq PO BID-WM ordered. -BMP pending to ensure K remains stable, then check BMPs q4h until K at a normal level -place in IMCU for close monitoring until K stable, then can transfer out of IMCU -CT abdomen/pelvis W/contrast shows extensive hepatic steatosis + fatty infiltrate of R hemicolon mucosa + increase in size of pancreatic cysts + possible mild pancreatitis -CXR: no acute cardiopulmonary process Hypomagnesemia, resolved -Mg 1.6 > 2.0 -s/p 2g Mg -Repeat Mg level this am. If still stable, will check with am labs. Otherwise, replace and recheck, as above Alcoholism -reportedly drinks 4 beers/day -had recent admission in May 2020 involving complications from Alcohol use -place on ASE protocol -AST 38 > 46, ALT 9, Alk Phos 189 > 159 -check UDS given hx of past substance abuse; UDS neg Abdominal Pain with Diarrhea, unknown cause Hx of Chronic Pancreatitis -Lipase 25 + no pain in LUQ -May 2020 CT abd/pelvis: severe hepatic steatosis & hepatomegaly, multiple small low-density lesions within pancreas may represent pseudocyst formation. Cystic pancreatic neoplasia cannot be excluded. Recommend short-term follow up with abdominal MRI w/w/o contrast in 3 months. Cholelithiasis. -CT abd/pelvis on admission: extensive hepatic steatosis + fatty infiltrate of R hemicolon mucosa + increase in size of pancreatic cysts + possible mild pancreatitis -will not pursue pancreatic MRI at this time -To investigate cause of diarrhea: * fecal elastase ordered to evaluate for pancreatic insuff. * stool studies ordered: CDiff, cx with campylobacter and E. coli screen, O&P -advance diet as tolerated to regular diet Sickle Cell Disease -does not appear to be in current crisis -Hgb 11.4 > 9.3, Hct 33 > 26.3, WBC 10.6 > 7. Likely 2/2 hemodilution given plts have also trended down -will monitor with am CBCs q2d Neuropathy -continue home Gabapentin Hypertension -continue home Amlodipine and Chlorthalidone -monitor vitals and adjust accordingly Diet: advance to regular diet VTE: Lovenox Code status: FULL PCP: KARELY Mortensen Dispo: Stable, admit to inpatient on IMCU for electrolyte replacement and monitoring. Expect to transition her to floor today if K remains >2.5. Anticipate LOS > 48 hours. Addendum - Attending - Attending Attestation Date/Time: 08/03/20 4467 I personally evaluated the patient and discussed the management with Dr. Wagner. I agree with the History, Examination, Assessment and Plan documented above with any addition or exceptions noted below. continue electrolyte repletion. CT findings nonspecific colon inflammation. stool studies ordered. can possible move out of IMCU if potassium stabilize. Will consider MRI of pancrease to evaluate. Consider GI consultation pending results of stool studies.
[2020-08-03] MEDS: Potassium Chloride 20 MEQ in Premix Bag 1 BAG IVPB SCH ×4 (06:19→11:15)
[2020-08-03] MEDS ORDERED: Potassium Chloride 40 MEQ in Premix Bag 1 BAG IVPB SCH (08:00)
[2020-08-03] MEDS ORDERED: Chlorthalidone 25 MG TAB PO SCH (09:00)
[2020-08-03] MEDS ORDERED: FLU VACC QS2020-21(6MOS UP)/PF 60 MCG/0.5 ML SYRINGE IM ONE (09:00)
[2020-08-03] MEDS: Amlodipine 10 MG TAB PO SCH (09:12)
[2020-08-03] MEDS: Enoxaparin Sodium 40 MG/0.4 ML SYRINGE SC SCH (09:12)
[2020-08-03] MEDS: Potassium Chloride 20 MEQ TAB PO SCH ×2 (09:12→18:22)
[2020-08-03 09:32] LABS: Anion Gap 20 mmol/L (10-20); BUN (Urea Nitrogen) 4 mg/dL (7.0-18.7); Calc. Creatinine Clearance 89 mL/min (70-130); Calcium 7.3 mg/dL (7.8-10.44); Carbon Dioxide 22 mmol/L (22-29); Chloride 106 mmol/L (98-107); Glucose 119 mg/dL (70-105); Sodium 144 mmol/L (136-145)
[2020-08-03] MEDS: Acetaminophen 325 MG TAB PO PRN (12:12)
[2020-08-03 12:34] LABS: Anion Gap 20 mmol/L (10-20); BUN (Urea Nitrogen) Less than 4 mg/dL (7.0-18.7); Calc. Creatinine Clearance 93 mL/min (70-130); Calcium 7.4 mg/dL (7.8-10.44); Carbon Dioxide 26 mmol/L (22-29); Chloride 97 mmol/L (98-107); Glucose 201 mg/dL (70-105); Phosphorus 2.1 mg/dL (2.3-4.7); Sodium 140 mmol/L (136-145)
[2020-08-03 12:42] LABS: Potassium 2.6 mmol/L (3.5-5.1)
[2020-08-03 12:43] LABS: Reticulocyte Count 3.9 % (0.5-1.5)
[2020-08-03] MEDS ORDERED: Magnesium 2 GM/50 ML 2 GM in Premix Bag 1 BAG IVPB SCH (12:45)
[2020-08-03] MEDS ORDERED: PHOS-NAK 1 PKT PACK PO SCH (13:15)
[2020-08-03 17:14] LABS: Anion Gap 14 mmol/L (10-20); BUN (Urea Nitrogen) Less than 4 mg/dL (7.0-18.7); Calc. Creatinine Clearance 98 mL/min (70-130); Calcium 7.3 mg/dL (7.8-10.44); Carbon Dioxide 28 mmol/L (22-29); Chloride 98 mmol/L (98-107); Glucose 116 mg/dL (70-105); Sodium 137 mmol/L (136-145)
[2020-08-03] MEDS: Vancomycin HCl 25 MG/ML Oral PO SCH (18:22)
[2020-08-03 21:13] LABS: Anion Gap 15 mmol/L (10-20); BUN (Urea Nitrogen) Less than 4 mg/dL (7.0-18.7); Calc. Creatinine Clearance 95 mL/min (70-130); Calcium 7.6 mg/dL (7.8-10.44); Carbon Dioxide 26 mmol/L (22-29); Chloride 98 mmol/L (98-107); Glucose 121 mg/dL (70-105); Sodium 136 mmol/L (136-145)
[2020-08-03 21:16] LABS: Potassium 2.9 mmol/L (3.5-5.1)
[2020-08-03] MEDS ORDERED: Potassium Chloride 40 MEQ in Sodium Chloride 0.9% 250 ML 250 ML IVPB SCH (22:15)
[2020-08-03] MEDS: Potassium Chloride 40 MEQ in Sodium Chloride 0.9% 250 ML 250 ML IVPB SCH (22:28)
[2020-08-04] MEDS: Vancomycin HCl 25 MG/ML Oral PO SCH ×5 (00:38→23:49)
[2020-08-04] MEDS: Lactated Ringer's 1,000 ML IV SCH ×3 (03:01→20:40)
[2020-08-04] MEDS: Potassium Chloride 40 MEQ in Sodium Chloride 0.9% 250 ML 250 ML IVPB SCH (03:01)
--- NOTE | 2020-08-04 06:15 | PDOC.FM ---
- Subjective Subjective: Feeling well this morning. Only complaint is some mild abdominal cramping when she has a bowel movement. Notes difficulty eating well due to poor dentition for which she is awaiting dentures. - Objective Vital Signs & Weight: Vital Signs (12 hours) Temp Pulse Ox 08/04/20 04:18 97.2 F L 08/04/20 00:03 97.3 F L 08/03/20 20:24 97.4 F L 08/03/20 19:53 100 08/03/20 18:46 98.2 F Weight Weight 57.153 kg Most Recent Monitor Data Heart Rate from ECG 80 NIBP 146/96 NIBP BP-Mean 112 Respiration from ECG 13 SpO2 100 I&O: 08/02/20 08/03/20 08/04/20 06:59 06:59 06:59 Intake Total 710 2517 Output Total 775 600 Balance -65 1917 Result Diagrams: 08/04/20 09:08 08/04/20 09:08 Phys Exam - Physical Examination Constitutional: NAD HEENT: moist MMs Neck: full ROM Respiratory: clear to auscultation bilateral Cardiovascular: RRR Gastrointestinal: soft, non-tender, positive bowel sounds Musculoskeletal: edema present Neurological: moves all 4 limbs Psychiatric: normal affect, A&O x 3 Skin: no rash Dx/Plan - Plan Plan: This is a 44F who presented for abdominal pain, vomiting, and diarrhea and was admitted for electrolyte abnormalities. C. Diff colitis - PO vancomycin - enteric precautions - 4 BM's yesterday Campylobacter + stool - Self resolving, treating secondary complications of diarrhea Hypokalemia, severe - K+ trend: 1.6 > 2.4 > 2.9 - 40meq IV BID + 40 PO BID - BMP after a.m. doses and qam Hypomagnesemia, resolved -Mg 1.6 > 2.0 Alcoholism -reportedly drinks 4 beers/day -place on ASE protocol Hx of Chronic Pancreatitis -Lipase 25 Sickle Cell Disease -no current crisis Neuropathy -continue home Gabapentin Hypertension -continue home Amlodipine and Chlorthalidone -monitor vitals and adjust accordingly Diet: regular diet VTE: Lovenox Code status: FULL PCP: KARELY Mortensen Dispo: Combination c. diff colitis being treated and campylobacter diarrhea receiving supportive care. Replacing potassium. Stable for transfer to floor now that potassium remains at stable level, although still low. Addendum - Attending - Attending Attestation Date/Time: 08/04/20 7094 I personally evaluated the patient and discussed the management with Dr. Timmons. I agree with the History, Examination, Assessment and Plan documented above with any addition or exceptions noted below.
[2020-08-04] MEDS ORDERED: Potassium Chloride 40 MEQ in Sodium Chloride 0.45% 1,000 ML IV SCH (06:45)
[2020-08-04] MEDS ORDERED: Potassium Chloride 20 MEQ TAB PO SCH (08:00)
[2020-08-04] MEDS: Potassium Chloride 20 MEQ TAB PO SCH ×2 (08:47→17:15)
[2020-08-04] MEDS: Acetaminophen 325 MG TAB PO PRN ×2 (08:47→20:41)
[2020-08-04] MEDS: Amlodipine 10 MG TAB PO SCH (08:48)
[2020-08-04] MEDS: Enoxaparin Sodium 40 MG/0.4 ML SYRINGE SC SCH (08:48)
[2020-08-04] MEDS ORDERED: Potassium Chloride 40 MEQ in Sodium Chloride 0.9% 250 ML 250 ML IVPB SCH (09:00)
[2020-08-04 09:18] LABS: #Lymphocytes 2.2 thou/uL (1.20-3.40); #Monocytes 0.2 thou/uL (0.11-0.59); #Neutrophils 3.1 thou/uL (1.40-6.50); %Basophils 0.4 % (0.0-1.0); %Eosinophils 0.6 % (0.0-10.0); %Lymphocytes 39.4 % (21.0-51.0); %Monocytes 3.8 % (0.0-10.0); %Neutrophils 55.8 % (42.0-75.0); Hemoglobin 8.6 g/dL (12.0-16.0); Mean Corpuscular HGB CONC 35.3 g/dL (32.0-36.0); Mean Corpuscular Hemoglobin 33.5 pg (27.0-31.0); Mean Corpuscular Volume 94.9 fL (78.0-98.0); Mean Platelet Volume 8.9 fL (7.4-10.4); Platelet Count 176 thou/uL (130-400); RBC Distribution Width 13.9 % (11.5-14.5); Red Blood Cell (RBC) Count 2.58 mill/uL (4.20-5.40); White Blood Cell (WBC) Count 5.5 thou/uL (4.8-10.8)
[2020-08-04 09:49] LABS: Phosphorus 2.3 mg/dL (2.3-4.7)
[2020-08-04 09:50] LABS: ALT (SGPT) 10 U/L (8-55); AST (SGOT) 50 U/L (5-34); Albumin 1.9 g/dL (3.5-5.0); Alkaline Phosphatase 160 U/L (40-110); Anion Gap 13 mmol/L (10-20); BUN (Urea Nitrogen) Less than 4 mg/dL (7.0-18.7); Bilirubin, Total 1.1 mg/dL (0.2-1.2); Calc. Creatinine Clearance 105 mL/min (70-130); Calcium 7.6 mg/dL (7.8-10.44); Carbon Dioxide 27 mmol/L (22-29); Chloride 100 mmol/L (98-107); Globulin 3.9 g/dL (2.4-3.5); Glucose 88 mg/dL (70-105); Magnesium 1.7 mg/dL (1.6-2.6); Potassium 3.3 mmol/L (3.5-5.1); Protein, Total 5.8 g/dL (6.0-8.3); Sodium 137 mmol/L (136-145)
[2020-08-04] MEDS ORDERED: Magnesium 2 GM/50 ML 2 GM in Premix Bag 1 BAG IVPB SCH (10:45)
[2020-08-04 12:47] VITALS: BMI 22.4
[2020-08-04 14:35] LABS: Anion Gap 15 mmol/L (10-20); BUN (Urea Nitrogen) Less than 4 mg/dL (7.0-18.7); Calc. Creatinine Clearance 107 mL/min (70-130); Calcium 7.7 mg/dL (7.8-10.44); Carbon Dioxide 26 mmol/L (22-29); Chloride 98 mmol/L (98-107); Glucose 129 mg/dL (70-105); Potassium 3.9 mmol/L (3.5-5.1); Sodium 135 mmol/L (136-145)
--- NOTE | 2020-08-04 16:49 | PQF ---
CLINICAL DOCUMENTATION CLARIFICATION FORM: Dear Dr. Timmons Date: 08/04/20 Please exercise your independent, professional judgment in responding to the clarification form. Clinical indicators are provided on the bottom of this form for your review. Please check appropriate box(es): [ ] Protein Calorie Malnutrition: [ ] Mild [ ] Moderate [ ] Severe [ ] Other Malnutrition (please specify) [ ] Underweight without malnutrition [ ] Cachexia [ ] Other diagnosis [ X ] Unable to determine In addition, please specify: Present on Admission (POA): [ X ] Yes [ ] No [ ] Unable to determine For continuity of documentation, please document condition throughout progress notes and discharge summary. Thank You. To be completed by CDI/Coding staff for physician review: CLINICAL INDICATORS - SIGNS / SYMPTOMS / LABS / RESULTS AND LOCATION IN MR DIETARY ASSESSMENT 08/04: "MODERATE MUSCLE WASTING AND FAT LOSS TO FACE AND UPPER EXTREMITIES" ">34 LB WEIGHT LOSS, POOR APPETITE" BMI 22.5 RISK FACTORS / RESULTS AND LOCATION IN MR CHRONIC PANCREATITIS (H&P-PAIGE) ALCOHOLISM (H&P-CHRISTINAE) CDIFF COLITIS (H&P-CHRISTINAE) POOR DENTITION (H&P- CHRISTINAE) TREATMENT / RESULTS AND LOCATION IN MR DIETARY CONSULT NUTRITIONAL SUPPLEMENTS Moderate Malnutrition (in acute illness) Energy Intake: <75% of estimated energy requirement for > 7 days Weight Loss: 1-2%/1 week; 5%/ 1 month; 7.5%/3 months Other: mild body fat loss; mild muscle mass loss; mild fluid accumulation; Severe Malnutrition (in acute illness) Energy Intake: = 50% of estimated energy requirement for = 5 days Weight Loss: >2%/1 week; >5%/1 month; >7.5%/3 months Other: moderate body fat loss; moderate muscle mass loss; moderate- severe fluid accumulation; measurably reduced molasses coloring operator strength Moderate Malnutrition (in chronic illness) Energy Intake: <75% of estimated energy requirement for =1 month Weight Loss: 5%/1 month; 7.5%/3 months; 10%/6 months; 20%/1 year Other: mild body fat loss; mild muscle mass loss; mild fluid accumulation Severe Malnutrition (in chronic illness) Energy Intake: =75% of estimated energy requirement for =1 month Weight Loss: >5%/1 month; >7.5%/3 months; >10%/6 months; >20%/1 year Other: severe body fat loss; severe muscle mass loss; severe fluid accumulation; measurably reduced molasses coloring operator strength CDS Signature: Darlin Soto RN Phone #: [phone] Date: 08/04/20 This is a permanent part of the Medical Record [facility]
[2020-08-04] MEDS: Gabapentin 300 MG CAP PO SCH (20:43)
[2020-08-05] MEDS: Vancomycin HCl 25 MG/ML Oral PO SCH ×3 (05:37→17:48)
[2020-08-05] MEDS: Lactated Ringer's 1,000 ML IV SCH (05:47)
--- NOTE | 2020-08-05 06:25 | PDOC.FM ---
- Subjective Subjective: Pt stating her BM's are becoming more formed and less frequent. Continues to have cramping abdominal pain with bowel movements that resolves. No blood in her stool. No fever, chills, N/V/ - Objective Vital Signs & Weight: Vital Signs (12 hours) Temp Pulse Resp BP Pulse Ox 08/05/20 05:57 97.3 F L 83 20 141/87 H 98 Weight Admit Weight 57.2 kg Weight 55.701 kg Most Recent Monitor Data Heart Rate from ECG 97 NIBP 127/88 NIBP BP-Mean 101 Respiration from ECG 17 SpO2 100 I&O: 08/03/20 08/04/20 08/05/20 06:59 06:59 06:59 Intake Total 710 4267 Output Total 775 1800 Balance -65 2467 Result Diagrams: 08/04/20 09:08 08/05/20 07:37 Phys Exam - Physical Examination Constitutional: NAD HEENT: moist MMs Respiratory: clear to auscultation bilateral Cardiovascular: RRR Gastrointestinal: soft, no distention, positive bowel sounds mild lower abdominal discomfort with palpation Musculoskeletal: no edema Neurological: non-focal, moves all 4 limbs Psychiatric: normal affect, A&O x 3 Dx/Plan - Plan Plan: This is a 44F who presented for abdominal pain, vomiting, and diarrhea and was admitted for electrolyte abnormalities. C. Diff colitis - PO vancomycin - enteric precautions - ~5 BM's yesterday, stool more formed Campylobacter + stool - Self resolving, treating secondary complications of diarrhea Hypokalemia, improving - K+: pending for a.m. - had returned WNL yesterday afternoon - Expect continued losses while still having diarrhea - trend BMP Alcoholism -reportedly drinks 4 beers/day -place on ASE protocol Sickle Cell Disease -no current crisis Neuropathy -continue home Gabapentin Hypertension -continue home Amlodipine and Chlorthalidone -monitor vitals and adjust accordingly Diet: regular diet VTE: Lovenox Code status: FULL PCP: KARELY Mortensen Dispo: Treating C. diff colitis. Diarrhea improvin. Hypokalemia improved, replace as needed. Addendum - Attending - Attending Attestation Date/Time: 08/05/20 1216 I personally evaluated the patient and discussed the management with Dr. Timmons. I agree with the History, Examination, Assessment and Plan documented above with any addition or exceptions noted below. Patient feeling improved. Ambulating well and good PO intake. She is interested in going home. She will need to complete therapy with PO Vanc for CDiff colitis. Her Potassium levels are overall stable but will continue repletion given her continued but improved diarrhea.
[2020-08-05] MEDS: Gabapentin 300 MG CAP PO SCH ×2 (07:56→16:15)
[2020-08-05] MEDS: Amlodipine 10 MG TAB PO SCH (07:56)
[2020-08-05] MEDS: Enoxaparin Sodium 40 MG/0.4 ML SYRINGE SC SCH (07:57)
[2020-08-05 08:05] LABS: ALT (SGPT) 12 U/L (8-55); AST (SGOT) 67 U/L (5-34); Alkaline Phosphatase 172 U/L (40-110); Anion Gap 12 mmol/L (10-20); BUN (Urea Nitrogen) Less than 4 mg/dL (7.0-18.7); Bilirubin, Total 1.2 mg/dL (0.2-1.2); Calc. Creatinine Clearance 114 mL/min (70-130); Carbon Dioxide 26 mmol/L (22-29); Chloride 100 mmol/L (98-107); Globulin 4.1 g/dL (2.4-3.5); Glucose 90 mg/dL (70-105); Magnesium 1.6 mg/dL (1.6-2.6); Potassium 3.9 mmol/L (3.5-5.1); Protein, Total 6.1 g/dL (6.0-8.3); Sodium 134 mmol/L (136-145)
[2020-08-05] MEDS ORDERED: PHOS-NAK 1 PKT PACK PO SCH ×2 (08:30→12:00)
[2020-08-05] MEDS ORDERED: Magnesium 2 GM/50 ML 2 GM in Premix Bag 1 BAG IVPB SCH (09:00)
[2020-08-05] MEDS: Potassium Chloride 20 MEQ TAB PO SCH ×2 (09:54→16:15)
[2020-08-05 16:33] VITALS: BP 130/72; TEMP 97.5
--- NOTE | 2020-08-06 06:51 | DIS ---
DATE OF ADMISSION: 08/02/2020 DATE OF DISCHARGE: 08/05/2020 ADMITTING ATTENDING: Angel Conner MD DISCHARGING ATTENDING: Milton Mckenzie MD RESIDENT: Jesús Timmons DO CONSULTATIONS: None. PROCEDURES: None. IMAGING: Chest x-ray on 08/02/2020, impression; no acute cardiopulmonary process. Abdominal pelvis CT on 08/02/2020, impression; redemonstration of extensive hepatic steatosis. Nonspecific fatty infiltration of the right hemicolon. Interval increase in size of multiple cysts involving the head and uncinate process of the pancreas. PRIMARY DIAGNOSES: Clostridium difficile colitis, Campylobacter diarrhea, severe hypokalemia. SECONDARY DIAGNOSES: Hypomagnesemia, alcoholism, weight loss, sickle cell disease, hypertension. DISCHARGE MEDICATIONS: 1. Gabapentin 6 mL p.o. t.i.d. 2. Amlodipine 10 mg daily. 3. Chlorthalidone 25 mg daily. 4. Vancomycin 125 mg suspension q.6 hours x32 doses. 5. Potassium chloride 20 mEq p.o. daily p.r.n. when having diarrhea. HISTORY OF PRESENT ILLNESS AND HOSPITAL COURSE: A 44-year-old female, who presented to the emergency department with complaint of loose watery bowel movements that had been going on for approximately 1 month, but worse over the past 3 days, accompanied by generalized abdominal pain and cramping. Initial workup showed the patient to have a potassium of 1.6, which was initially repleted both intravenously and orally in the emergency department. Further workup showed the patient to have C diff colitis as well as Campylobacter positive stool. She was admitted to the hospital for IV fluids and treatment of her C diff colitis. She was started on oral vancomycin and the electrolyte replacement protocol while on IMCU. Once her potassium stabilized to a noncritical level, she was transferred to the floor and continued to get as needed repletion of her potassium as well as treatment for her colitis. The patient eventually started to feel better and was tolerating p.o. adequately. She also started to develop more formed stools. We discussed possible treatment options for the patient's C diff, which she elected to do on an outpatient basis. The patient was instructed to follow up with her PCP regarding her significant weight loss, which likely was multifactorial. She was also recommended to decrease her alcohol consumption. DISCHARGE INSTRUCTIONS: 1. Location: Home. 2. Diet: Regular. 3. Activity: As tolerated. 4. Follow up with PCP, Dr. Kiara Mortensen, within 7 days. Job ID: [id number] [id number]
== END 2020-08-05 18:34 | disposition home or self-care (01) | DRG 641 ==
LOC: ERS 18:51 → IMCU/EMU 21:31 → 2SW 08-04 16:09
PROVIDERS: ADMIT Family Medicine; ATTEND Family Medicine
DX: E87.6 Hypokalemia (principal); A04.72 Enterocolitis due to Clostridium difficile, not specified as recurrent; A04.5 Campylobacter enteritis; I10 Essential (primary) hypertension; K21.9 Gastro-esophageal reflux disease without esophagitis; G62.9 Polyneuropathy, unspecified; F17.210 Nicotine dependence, cigarettes, uncomplicated; E83.42 Hypomagnesemia; Z20.822 Contact with and (suspected) exposure to COVID-19; F10.20 Alcohol dependence, uncomplicated; Z88.0 Allergy status to penicillin; Z98.890 Other specified postprocedural states
CPT/HCPCS: 0240U; 36415; 71046; 74177; 80048; 80053; 80306; 82274; 83690; 83735; 84100; 84703; 85025; 85046; 87045; 87046; 87324; 87328; 87329; 87427; 87449; 87493; 93005; 93010; 96365; 96367; J0500; J1650; J3475; J3480; J7050; Q9967

== ENCOUNTER 2020-08-12 18:55 | Observation (INO) | payer OTHER ==
[2020-08-12 19:23] LABS: #Basophils 0.1 thou/uL (0.0-0.2); #Eosinphils 0.1 thou/uL (0.0-0.7); #Lymphocytes 3.6 thou/uL (1.20-3.40); #Monocytes 0.3 thou/uL (0.11-0.59); #Neutrophils 3.2 thou/uL (1.40-6.50); %Basophils 1.3 % (0.0-1.0); %Eosinophils 1.2 % (0.0-10.0); %Lymphocytes 49.8 % (21.0-51.0); %Monocytes 3.8 % (0.0-10.0); %Neutrophils 43.9 % (42.0-75.0); Hemoglobin 10.7 g/dL (12.0-16.0); Mean Corpuscular HGB CONC 34.2 g/dL (32.0-36.0); Mean Corpuscular Hemoglobin 32.6 pg (27.0-31.0); Mean Corpuscular Volume 95.5 fL (78.0-98.0); Mean Platelet Volume 7.7 fL (7.4-10.4); Platelet Count 328 thou/uL (130-400); RBC Distribution Width 14.9 % (11.5-14.5); Red Blood Cell (RBC) Count 3.28 mill/uL (4.20-5.40); White Blood Cell (WBC) Count 7.2 thou/uL (4.8-10.8)
[2020-08-12 19:29] LABS: BHCG - Serum Negative (NEGATIVE); Pregs Control Background? CLEAR/WHITE (CLR/WHITE); Pregs Control Bar Appear? YES (CONTROL BAR)
[2020-08-12 20:06] LABS: ALT (SGPT) 15 U/L (8-55); AST (SGOT) 77 U/L (5-34); Albumin 2.4 g/dL (3.5-5.0); Alkaline Phosphatase 211 U/L (40-110); Anion Gap 17 mmol/L (10-20); BUN (Urea Nitrogen) 4 mg/dL (7.0-18.7); Bilirubin, Total 0.8 mg/dL (0.2-1.2); Calc. Creatinine Clearance 0 mL/min (70-130); Calcium 7.7 mg/dL (7.8-10.44); Carbon Dioxide 25 mmol/L (22-29); Chloride 101 mmol/L (98-107); Globulin 5.2 g/dL (2.4-3.5); Glucose 106 mg/dL (70-105); Potassium 4.1 mmol/L (3.5-5.1); Protein, Total 7.6 g/dL (6.0-8.3); Sodium 139 mmol/L (136-145)
[2020-08-12] MEDS ORDERED: Nicotine 14 MG PATCH ONE (21:21)
[2020-08-12] MEDS ORDERED: Meclizine HCl 25 MG TAB ONE (21:21)
[2020-08-12] MEDS ORDERED: Aspirin Chewable 81 MG TAB ONE (21:26)
[2020-08-12 23:08] LABS: Troponin I Less than 0.010 ng/mL (< 0.028)
[2020-08-12] MEDS ORDERED: Calcium Carbonate 500 MG ChewTAB PO PRN (23:38)
[2020-08-12] MEDS ORDERED: Ondansetron PF 4 MG/2 ML Vial IVP PRN (23:38)
[2020-08-12] MEDS ORDERED: Ondansetron ODT 4 MG TAB PO PRN (23:38)
[2020-08-12] MEDS: Nicotine 21 MG PATCH TD SCH (23:51)
[2020-08-13] LABS: Hemoglobin A1c 4.8 % (4.0-6.0)
[2020-08-13] MEDS ORDERED: Potassium Chloride 20 MEQ TAB PO PRN (01:08)
[2020-08-13] MEDS ORDERED: Atorvastatin Calcium 40 MG TAB PO SCH ×2 (01:30→21:00)
[2020-08-13 01:40] LABS: Troponin I 0.013 ng/mL (< 0.028)
[2020-08-13] MEDS: Acetaminophen 325 MG TAB PO PRN ×2 (03:50→20:19)
[2020-08-13] MEDS ORDERED: Acetaminophen 325 MG TAB ONE (03:51)
[2020-08-13 06:17] LABS: #Basophils 0.1 thou/uL (0.0-0.2); #Eosinphils 0.1 thou/uL (0.0-0.7); #Lymphocytes 3.5 thou/uL (1.20-3.40); #Monocytes 0.3 thou/uL (0.11-0.59); #Neutrophils 4.4 thou/uL (1.40-6.50); %Basophils 0.6 % (0.0-1.0); %Eosinophils 1.1 % (0.0-10.0); %Lymphocytes 41.6 % (21.0-51.0); %Monocytes 3.8 % (0.0-10.0); %Neutrophils 52.9 % (42.0-75.0); Hemoglobin 10.6 g/dL (12.0-16.0); Mean Corpuscular HGB CONC 32.9 g/dL (32.0-36.0); Mean Corpuscular Hemoglobin 31.6 pg (27.0-31.0); Mean Corpuscular Volume 95.9 fL (78.0-98.0); Platelet Count 316 thou/uL (130-400); RBC Distribution Width 14.7 % (11.5-14.5); Red Blood Cell (RBC) Count 3.34 mill/uL (4.20-5.40); White Blood Cell (WBC) Count 8.4 thou/uL (4.8-10.8)
[2020-08-13 06:41] LABS: ALT (SGPT) 16 U/L (8-55); AST (SGOT) 81 U/L (5-34); Albumin 2.4 g/dL (3.5-5.0); Alkaline Phosphatase 219 U/L (40-110); Anion Gap 16 mmol/L (10-20); BUN (Urea Nitrogen) 4 mg/dL (7.0-18.7); Bilirubin, Total 0.9 mg/dL (0.2-1.2); Calc. Creatinine Clearance 0 mL/min (70-130); Calcium 7.8 mg/dL (7.8-10.44); Carbon Dioxide 26 mmol/L (22-29); Cardiac Risk 3.9 (Less than 4.5); Chloride 101 mmol/L (98-107); Cholesterol 98 mg/dl (< 200 Desired); Globulin 4.9 g/dL (2.4-3.5); Glucose 80 mg/dL (70-105); HDL Cholesterol 25 mg/dL (>60 Neg Risk); LDL Cholesterol, Calculated 57 mg/dL; Protein, Total 7.3 g/dL (6.0-8.3); Sodium 140 mmol/L (136-145); Triglycerides 80 mg/dL (Less than 150)
[2020-08-13 06:43] LABS: Potassium 2.7 mmol/L (3.5-5.1)
[2020-08-13 07:26] LABS: Anion Gap 16 mmol/L (10-20); BUN (Urea Nitrogen) 4 mg/dL (7.0-18.7); Calc. Creatinine Clearance 0 mL/min (70-130); Calcium 7.7 mg/dL (7.8-10.44); Carbon Dioxide 25 mmol/L (22-29); Chloride 101 mmol/L (98-107); Glucose 83 mg/dL (70-105); Sodium 139 mmol/L (136-145)
[2020-08-13 07:29] LABS: Potassium 2.6 mmol/L (3.5-5.1)
[2020-08-13] MEDS ORDERED: Potassium Chloride 20 MEQ TAB PO SCH (07:45)
[2020-08-13] MEDS ORDERED: Potassium Chloride 20 MEQ TAB ONE (07:45)
[2020-08-13] MEDS ORDERED: Vancomycin 1 GM/200 ML BAG ONE (08:32)
[2020-08-13] MEDS ORDERED: Amlodipine 5 MG TAB ONE (08:36)
[2020-08-13] MEDS ORDERED: Folic Acid 1 MG TAB ONE (08:36)
[2020-08-13] MEDS ORDERED: Aspirin 325 MG TAB ONE (08:36)
[2020-08-13] MEDS ORDERED: Thiamine 100 MG TAB ONE (08:37)
[2020-08-13] MEDS ORDERED: Enoxaparin Sodium 40 MG/0.4 ML SYRINGE ONE (08:37)
[2020-08-13] MEDS: Amlodipine 10 MG TAB PO SCH (08:45)
[2020-08-13] MEDS: Gabapentin 300 MG CAP PO SCH ×3 (08:46→20:18)
[2020-08-13] MEDS: Chlorthalidone 25 MG TAB PO SCH (08:47)
[2020-08-13] MEDS: Vancomycin HCl 25 MG/ML Oral PO SCH ×3 (08:48→17:26)
[2020-08-13] MEDS: Folic Acid 1 MG TAB PO SCH (08:57)
[2020-08-13] MEDS: Thiamine 100 MG TAB PO SCH (08:57)
[2020-08-13] MEDS ORDERED: Aspirin 325 mg Enteric Coated Tablet PO SCH (09:00)
[2020-08-13] MEDS ORDERED: Enoxaparin Sodium 40 MG/0.4 ML SYRINGE SC SCH (09:00)
[2020-08-13] MEDS: Potassium Chloride 20 MEQ in Premix Bag 1 BAG IVPB SCH ×2 (09:24→13:26)
[2020-08-13] MEDS ORDERED: Potassium Chloride 20 MEQ/100 ML PREMIX BAG ONE (09:25)
[2020-08-13] MEDS ORDERED: Lactated Ringer's 1,000 ML IV SCH (09:45)
[2020-08-13] MEDS ORDERED: Magnevist 469MG/ML 20 ML VIAL ONE (12:17)
[2020-08-13 13:38] LABS: Anion Gap 19 mmol/L (10-20); BUN (Urea Nitrogen) 5 mg/dL (7.0-18.7); Calc. Creatinine Clearance 0 mL/min (70-130); Calcium 7.8 mg/dL (7.8-10.44); Carbon Dioxide 21 mmol/L (22-29); Chloride 102 mmol/L (98-107); Glucose 123 mg/dL (70-105); Potassium 3.5 mmol/L (3.5-5.1); Sodium 138 mmol/L (136-145)
[2020-08-13 13:45] VITALS: BMI 17.9
[2020-08-13 13:55] LABS: SARS-CoV-2 PCR by NAA Not Detected (NotDetected)
[2020-08-14] MEDS: Nicotine 21 MG PATCH TD SCH (00:31)
[2020-08-14] MEDS: Vancomycin HCl 25 MG/ML Oral PO SCH ×3 (00:31→12:01)
[2020-08-14 04:46] LABS: #Eosinphils 0.1 thou/uL (0.0-0.7); #Lymphocytes 2.3 thou/uL (1.20-3.40); #Monocytes 0.3 thou/uL (0.11-0.59); #Neutrophils 4.6 thou/uL (1.40-6.50); %Basophils 0.4 % (0.0-1.0); %Eosinophils 1.3 % (0.0-10.0); %Lymphocytes 31.2 % (21.0-51.0); %Neutrophils 63.1 % (42.0-75.0); Hemoglobin 9.5 g/dL (12.0-16.0); Mean Corpuscular Hemoglobin 33.6 pg (27.0-31.0); Mean Platelet Volume 8.1 fL (7.4-10.4); Platelet Count 250 thou/uL (130-400); RBC Distribution Width 14.3 % (11.5-14.5); Red Blood Cell (RBC) Count 2.81 mill/uL (4.20-5.40); White Blood Cell (WBC) Count 7.3 thou/uL (4.8-10.8)
[2020-08-14 05:05] LABS: Anion Gap 14 mmol/L (10-20); BUN (Urea Nitrogen) 4 mg/dL (7.0-18.7); Calc. Creatinine Clearance 98 mL/min (70-130); Calcium 7.9 mg/dL (7.8-10.44); Carbon Dioxide 22 mmol/L (22-29); Chloride 101 mmol/L (98-107); Glucose 77 mg/dL (70-105); Potassium 3.5 mmol/L (3.5-5.1); Sodium 133 mmol/L (136-145)
[2020-08-14] MEDS ORDERED: Nicotine 14 MG PATCH TD SCH (05:30)
[2020-08-14] MEDS: Acetaminophen 325 MG TAB PO PRN (06:24)
[2020-08-14] MEDS ORDERED: FLU VACC QS2020-21(6MOS UP)/PF 60 MCG/0.5 ML SYRINGE IM ONE (09:00)
[2020-08-14] MEDS: Amlodipine 10 MG TAB PO SCH (10:02)
[2020-08-14] MEDS: Folic Acid 1 MG TAB PO SCH (10:02)
[2020-08-14] MEDS: Chlorthalidone 25 MG TAB PO SCH (10:02)
[2020-08-14] MEDS: Thiamine 100 MG TAB PO SCH (10:03)
[2020-08-14] MEDS: Gabapentin 300 MG CAP PO SCH (10:03)
[2020-08-14 11:52] VITALS: BP 117/90; TEMP 98.7
== END 2020-08-14 14:00 | disposition home or self-care (01) ==
LOC: ERS 18:55 → ERHOLD 21:57 → INTOOBSV 21:57 → 2SE 08-13 12:02
PROVIDERS: ADMIT Family Medicine; ATTEND Family Medicine
DX: I62.03 Nontraumatic chronic subdural hemorrhage (principal); R42 Dizziness and giddiness; R07.89 Other chest pain; E87.6 Hypokalemia; I10 Essential (primary) hypertension; A04.72 Enterocolitis due to Clostridium difficile, not specified as recurrent; A04.5 Campylobacter enteritis; R74.01 Elevation of levels of liver transaminase levels; M54.10 Radiculopathy, site unspecified; F17.210 Nicotine dependence, cigarettes, uncomplicated; I47.1 Supraventricular tachycardia; R74.8 Abnormal levels of other serum enzymes; F10.20 Alcohol dependence, uncomplicated; F31.9 Bipolar disorder, unspecified; F20.9 Schizophrenia, unspecified; Z79.899 Other long term (current) drug therapy; Z88.0 Allergy status to penicillin; Z20.822 Contact with and (suspected) exposure to COVID-19
CPT/HCPCS: 36415; 70553; 71045; 71275; 80048; 80053; 80061; 80307; 83036; 84443; 84484; 84703; 85025; 85379; 87635; 93005; 96372; 96374; A9579; G0378; J1650; J3370; J3480; Q9967; U0003; U0005

== ENCOUNTER 2020-09-15 09:19 | Inpatient (IN) | payer OTHER ==
[2020-09-15 10:44] LABS: #Basophils 0.1 thou/uL (0.0-0.2); #Monocytes 0.5 thou/uL (0.11-0.59); #Neutrophils 6.6 thou/uL (1.40-6.50); %Basophils 0.6 % (0.0-1.0); %Eosinophils 0.2 % (0.0-10.0); %Lymphocytes 21.5 % (21.0-51.0); %Monocytes 5.2 % (0.0-10.0); %Neutrophils 72.5 % (42.0-75.0); Hemoglobin 8.2 g/dL (12.0-16.0); Mean Corpuscular HGB CONC 33.1 g/dL (32.0-36.0); Mean Corpuscular Hemoglobin 33.8 pg (27.0-31.0); Mean Platelet Volume 8.3 fL (7.4-10.4); Platelet Count 279 thou/uL (130-400); Platelet Morphology Comment Appears Adequate; RBC Distribution Width 15.3 % (11.5-14.5); Red Blood Cell (RBC) Count 2.43 mill/uL (4.20-5.40); White Blood Cell (WBC) Count 9.1 thou/uL (4.8-10.8)
[2020-09-15 11:09] LABS: ALT (SGPT) 17 U/L (8-55); AST (SGOT) 108 U/L (5-34); Albumin 2.1 g/dL (3.5-5.0); Alkaline Phosphatase 163 U/L (40-110); Anion Gap 22 mmol/L (10-20); BUN (Urea Nitrogen) 7 mg/dL (7.0-18.7); Bilirubin, Total 7.4 mg/dL (0.2-1.2); Calc. Creatinine Clearance 0 mL/min (70-130); Calcium 7.3 mg/dL (7.8-10.44); Carbon Dioxide 24 mmol/L (22-29); Chloride 89 mmol/L (98-107); Globulin 5.8 g/dL (2.4-3.5); Glucose 86 mg/dL (70-105); Potassium 3.5 mmol/L (3.5-5.1); Protein, Total 7.9 g/dL (6.0-8.3); Sodium 131 mmol/L (136-145)
[2020-09-15 12:15] LABS: BHCG - Serum Negative (NEGATIVE); Pregs Control Background? CLEAR/WHITE (CLR/WHITE); Pregs Control Bar Appear? YES (CONTROL BAR)
[2020-09-15] MEDS ORDERED: Vancomycin HCl 25 MG/ML Oral PO SCH (14:30)
[2020-09-15] MEDS ORDERED: Iopamidol-370 76% 500 ML 1 ML ONE (14:39)
[2020-09-15 15:01] LABS: Lactic Acid 6.8 mmol/L (0.5-2.2)
[2020-09-15] MEDS ORDERED: Lorazepam 2 MG/ML VIAL SLOW IVP PRN ×2 (15:35→16:07)
[2020-09-15] MEDS ORDERED: Lactated Ringer's 1,000 ML IV SCH ×2 (15:45→16:00)
[2020-09-15 17:58] LABS: Mean Corpuscular HGB CONC 32.1 g/dL (32.0-36.0); Mean Platelet Volume 8.3 fL (7.4-10.4); Platelet Count 223 thou/uL (130-400); RBC Distribution Width 15.4 % (11.5-14.5); Red Blood Cell (RBC) Count 1.83 mill/uL (4.20-5.40); White Blood Cell (WBC) Count 10.1 thou/uL (4.8-10.8)
[2020-09-15 18:00] LABS: PTT 36.3 sec (22.9-36.1); Prothrombin Time 23.2 sec (12.0-14.7)
[2020-09-15 18:13] LABS: Bacteria/HPF None Seen HPF (None Seen); Bilirubin 2+ (Negative); Blood, Urine Trace (Negative); Clarity Clear (Clear); Glucose, Urine (Dipstick) Normal (Negative); Ketone, Urine Negative (Negative); Leukocyte Negative Leu/uL (Negative); Nitrite Negative (Negative); Protein, Urine (Dipstick) 20 mg/dL (Neg-Trace); RBC/HPF 0-3 HPF (0-3); Squamous Epithelial 0-3 HPF (0-3); Urobilinogen 3 mg/dL (Less than 2); pH, Urine 6.5 (5.0-9.0)
[2020-09-15 18:14] LABS: Iron 93 ug/dL (50-170); Iron Binding Capacity, Total 85 mcg/dL (265-497); Lipase 41 U/L (8-78); Magnesium 1.1 mg/dL (1.6-2.6); Transferrin, Serum 68 mg/dL (180-382)
[2020-09-15 18:15] LABS: Specific Gravity, Urine 1.054 (1.002-1.036)
[2020-09-15 18:18] LABS: Band 35 % (5-11); Hypochromia SLIGHT = 6-15 cells (100X) (0-5/hpf); Lymphocytes 7 % (21-51); MDiff Complete? YES; Macrocytosis SLIGHT = 6-15 cells (100X) (0-5/hpf); Monocytes 3 % (0-10); Neutrophil 50 % (42-75); Platelet Morphology Comment Appears Adequate; Polychromasia MODERATE = 3-4 cells (100X) (0-2/hpf); Reactive Lymphocytes 5 % (0-10); Target Cells MODERATE= 6-15 cells (100X) (0-1/hpf)
[2020-09-15 18:20] LABS: Phosphorus 1.1 mg/dL (2.3-4.7)
[2020-09-15 18:28] LABS: Lactic Acid 7.3 mmol/L (0.5-2.2)
[2020-09-15 18:39] LABS: Ferritin 338.11 ng/mL (10-291)
[2020-09-15 18:43] LABS: Vitamin B12 Greater than 2000 pg/mL (211-911)
[2020-09-15 21:02] LABS: Lactic Acid 7.7 mmol/L (0.5-2.2)
[2020-09-15 21:50] LABS: Reticulocyte Count 13.1 % (0.5-1.5)
[2020-09-15 21:59] LABS: ALT (SGPT) 13 U/L (8-55); AST (SGOT) 77 U/L (5-34); Albumin 1.8 g/dL (3.5-5.0); Alkaline Phosphatase 134 U/L (40-110); Anion Gap 19 mmol/L (10-20); BUN (Urea Nitrogen) 7 mg/dL (7.0-18.7); Bilirubin, Total 7.3 mg/dL (0.2-1.2); Calc. Creatinine Clearance 86 mL/min (70-130); Calcium 6.7 mg/dL (7.8-10.44); Carbon Dioxide 21 mmol/L (22-29); Chloride 94 mmol/L (98-107); Globulin 4.6 g/dL (2.4-3.5); Glucose 137 mg/dL (70-105); Protein, Total 6.4 g/dL (6.0-8.3); Sodium 132 mmol/L (136-145)
[2020-09-15] MEDS ORDERED: PHOS-NAK 1 PKT PACK PO SCH (22:00)
[2020-09-15] MEDS ORDERED: Magnesium 2 GM/50 ML 2 GM in Premix Bag 1 BAG IVPB SCH (22:00)
[2020-09-15] MEDS ORDERED: Potassium Phosphate 30 MMOL in Sodium Chloride 0.9% 500 ML IVPB SCH (22:00)
[2020-09-15 22:11] LABS: Potassium 2.2 mmol/L (3.5-5.1)
[2020-09-15] MEDS ORDERED: Potassium Phosphate 30 MMOL in Sodium Chloride 0.9% 250 ML 250 ML IVPB SCH (23:30)
[2020-09-15] MEDS: Lactated Ringer's 1,000 ML IV SCH (23:43)
[2020-09-15 23:49] LABS: Hemoglobin 6.9 g/dL (12.0-16.0)
[2020-09-16] MEDS ORDERED: Lactated Ringer's 1,000 ML IV SCH (02:45)
[2020-09-16 04:51] LABS: Lactic Acid 3.6 mmol/L (0.5-2.2)
[2020-09-16 04:54] LABS: #Lymphocytes 1.4 thou/uL (1.20-3.40); #Monocytes 0.5 thou/uL (0.11-0.59); #Neutrophils 6.2 thou/uL (1.40-6.50); %Basophils 0.4 % (0.0-1.0); %Eosinophils 0.3 % (0.0-10.0); %Lymphocytes 16.7 % (21.0-51.0); %Monocytes 6.2 % (0.0-10.0); %Neutrophils 76.4 % (42.0-75.0); Hemoglobin 7.7 g/dL (12.0-16.0); Mean Corpuscular HGB CONC 32.4 g/dL (32.0-36.0); Mean Corpuscular Hemoglobin 33.1 pg (27.0-31.0); Mean Platelet Volume 8.1 fL (7.4-10.4); Platelet Count 192 thou/uL (130-400); Red Blood Cell (RBC) Count 2.32 mill/uL (4.20-5.40); White Blood Cell (WBC) Count 8.1 thou/uL (4.8-10.8)
[2020-09-16 04:54] LABS: ALT (SGPT) 13 U/L (8-55); AST (SGOT) 72 U/L (5-34); Albumin 1.6 g/dL (3.5-5.0); Alkaline Phosphatase 125 U/L (40-110); Anion Gap 17 mmol/L (10-20); BUN (Urea Nitrogen) 6 mg/dL (7.0-18.7); Bilirubin, Total 7.3 mg/dL (0.2-1.2); Calc. Creatinine Clearance 100 mL/min (70-130); Calcium 6.6 mg/dL (7.8-10.44); Carbon Dioxide 20 mmol/L (22-29); Chloride 99 mmol/L (98-107); Globulin 4.3 g/dL (2.4-3.5); Glucose 91 mg/dL (70-105); Protein, Total 5.9 g/dL (6.0-8.3); Sodium 134 mmol/L (136-145)
[2020-09-16] MEDS: Lactated Ringer's 1,000 ML IV SCH ×4 (04:58→10:54)
[2020-09-16 05:02] LABS: Magnesium 0.9 mg/dL (1.6-2.6); Phosphorus 2.1 mg/dL (2.3-4.7)
[2020-09-16 05:06] LABS: SARS-CoV-2 PCR by NAA Not Detected (NotDetected)
[2020-09-16] MEDS ORDERED: Potassium Chloride 40 MEQ in Premix Bag 1 BAG IVPB SCH ×2 (05:15→09:15)
[2020-09-16] MEDS ORDERED: Magnesium 2 GM/50 ML 2 GM in Premix Bag 1 BAG IVPB SCH ×2 (05:15→07:15)
[2020-09-16] MEDS ORDERED: Magnesium 2 GM/50 ML 1 GM in Premix Bag 1 BAG IVPB SCH (05:15)
[2020-09-16] MEDS ORDERED: Potassium Phosphate 30 MMOL in Sodium Chloride 0.9% 250 ML 250 ML IVPB SCH ×2 (06:00→08:15)
[2020-09-16] MEDS ORDERED: Folic Acid 1 MG TAB PO SCH (09:00)
[2020-09-16] MEDS ORDERED: PHOS-NAK 1 PKT PACK PO SCH (09:00)
[2020-09-16] MEDS ORDERED: Multivitamin W/ Minerals 1 TAB PO SCH (09:00)
[2020-09-16] MEDS ORDERED: Thiamine 100 MG TAB PO SCH (09:00)
[2020-09-16] MEDS ORDERED: Magnevist 469MG/ML 20 ML VIAL ONE (09:07)
[2020-09-16 10:15] LABS: Hemoglobin 6.4 g/dL (12.0-16.0)
[2020-09-16 10:47] LABS: Hep A IgM AB Non-Reactive (NonReactive); Hep A IgM S/CO 0.23 S/CO (0-0.79); Hep C IgG Ab Non-Reactive (NonReactive); Hep C Index 0.17 S/CO (0-0.79)
[2020-09-16 11:59] LABS: HBSAB Concentration 453.49 mIU/mL; Hep B Surf AB Reactive (NonReactive)
[2020-09-16] MEDS ORDERED: Vancomycin HCl 25 MG/ML Oral PO SCH (12:00)
[2020-09-16] MEDS: Albumin 25% 25 GM/100 ML BOT IVPB SCH ×2 (14:38→22:02)
[2020-09-16 14:59] LABS: Hep B Core Total Index 4.08 S/CO (0-0.79)
[2020-09-16 15:00] LABS: Hep B Core Total Ab Reactive (NonReactive)
[2020-09-16 15:12] LABS: Lactic Acid 3.5 mmol/L (0.5-2.2)
[2020-09-16 15:32] LABS: Anion Gap 15 mmol/L (10-20); BUN (Urea Nitrogen) 5 mg/dL (7.0-18.7); Calc. Creatinine Clearance 102 mL/min (70-130); Calcium 6.9 mg/dL (7.8-10.44); Carbon Dioxide 22 mmol/L (22-29); Chloride 95 mmol/L (98-107); Glucose 163 mg/dL (70-105); Magnesium 2.3 mg/dL (1.6-2.6); Phosphorus 2.9 mg/dL (2.3-4.7); Sodium 130 mmol/L (136-145)
[2020-09-16] MEDS ORDERED: Potassium Chloride 40 MEQ in Sodium Chloride 0.9% 250 ML 250 ML IVPB SCH (16:30)
[2020-09-16] MEDS: NS 0.9% w/ 20 MEQ KCL 1,000 ML/1,000 ML BAG IV SCH ×2 (17:05→23:25)
[2020-09-16] MEDS: Vancomycin HCl 25 MG/ML Oral PO SCH ×2 (17:05→23:25)
[2020-09-16] MEDS: metroNIDAZOLE 500 MG in Premix Bag 1 BAG IVPB SCH (22:03)
[2020-09-17] MEDS: Vancomycin HCl 25 MG/ML Oral PO SCH ×4 (06:09→23:09)
[2020-09-17] MEDS: metroNIDAZOLE 500 MG in Premix Bag 1 BAG IVPB SCH ×3 (06:09→21:08)
[2020-09-17] MEDS: Albumin 25% 25 GM/100 ML BOT IVPB SCH ×2 (06:09→13:35)
[2020-09-17 06:26] LABS: #Monocytes 0.4 thou/uL (0.11-0.59); #Neutrophils 4.6 thou/uL (1.40-6.50); %Basophils 0.3 % (0.0-1.0); %Eosinophils 0.4 % (0.0-10.0); %Lymphocytes 16.2 % (21.0-51.0); %Monocytes 6.5 % (0.0-10.0); %Neutrophils 76.6 % (42.0-75.0); Hemoglobin 8.2 g/dL (12.0-16.0); Mean Corpuscular Hemoglobin 32.9 pg (27.0-31.0); Mean Corpuscular Volume 99.5 fL (78.0-98.0); Mean Platelet Volume 8.2 fL (7.4-10.4); Platelet Count 162 thou/uL (130-400); RBC Distribution Width 15.2 % (11.5-14.5); Red Blood Cell (RBC) Count 2.48 mill/uL (4.20-5.40)
[2020-09-17 06:57] LABS: ALT (SGPT) 10 U/L (8-55); AST (SGOT) 62 U/L (5-34); Albumin 2.3 g/dL (3.5-5.0); Alkaline Phosphatase 102 U/L (40-110); Anion Gap 15 mmol/L (10-20); BUN (Urea Nitrogen) Less than 4 mg/dL (7.0-18.7); Bilirubin, Total 8.5 mg/dL (0.2-1.2); Calc. Creatinine Clearance 121 mL/min (70-130); Calcium 7.1 mg/dL (7.8-10.44); Carbon Dioxide 20 mmol/L (22-29); Chloride 99 mmol/L (98-107); Globulin 3.7 g/dL (2.4-3.5); Glucose 86 mg/dL (70-105); Magnesium 1.7 mg/dL (1.6-2.6); Phosphorus 1.5 mg/dL (2.3-4.7); Sodium 132 mmol/L (136-145)
[2020-09-17] MEDS ORDERED: Thiamine HCl 200 MG/2 ML VIAL SLOW IVP SCH (07:00)
[2020-09-17] MEDS ORDERED: Potassium Chloride 40 MEQ in Premix Bag 1 BAG IVPB SCH ×2 (07:00→09:30)
[2020-09-17] MEDS ORDERED: Potassium Chloride 20 MEQ TAB PO SCH ×3 (07:00→20:10)
[2020-09-17] MEDS ORDERED: Potassium Phosphate 30 MMOL in Sodium Chloride 0.9% 250 ML 250 ML IVPB SCH (07:15)
[2020-09-17] MEDS: Multivitamins, Adult 10 ML, Folic Acid 1 MG in Dextrose 5 %-0.45 % NaCl 1,000 ML IV SCH (07:45)
[2020-09-17] MEDS: NS 0.9% w/ 20 MEQ KCL 1,000 ML/1,000 ML BAG IV SCH ×3 (07:45→23:09)
[2020-09-17] MEDS: Amlodipine 10 MG TAB PO SCH (07:46)
[2020-09-17] MEDS: Saccharomyces boulardii 250 MG CAP PO SCH (07:46)
[2020-09-17] MEDS: Pantoprazole 40 MG VIAL IVP SCH (07:56)
[2020-09-17] MEDS: Thiamine HCl 200 MG/2 ML VIAL SLOW IVP SCH (08:24)
[2020-09-17] MEDS ORDERED: Multivitamins, Adult 10 ML in Lactated Ringer's 1,000 ML IV SCH (09:00)
[2020-09-17] MEDS ORDERED: Magnesium 2 GM/50 ML 1 GM in Premix Bag 1 BAG IVPB SCH (09:00)
[2020-09-17] MEDS ORDERED: Chlorthalidone 25 MG TAB PO SCH (09:00)
[2020-09-17] MEDS ORDERED: Multivit, Adult Inj 10 ML VIAL IV SCH (09:00)
[2020-09-17] MEDS: Potassium Chloride 20 MEQ in Premix Bag 1 BAG IVPB SCH ×4 (10:41→23:10)
[2020-09-17 11:00] LABS: HBCM Index 0.17 S/CO (0-0.79); HBSAg Index 0.29 S/CO (0-0.99); Hep B Surf Ag Non-Reactive S/CO (NonReactive); Hepatitis B Core IgM Abs Non-Reactive (NonReactive)
[2020-09-17 12:20] LABS: Anion Gap 17 mmol/L (10-20); BUN (Urea Nitrogen) Less than 4 mg/dL (7.0-18.7); Calc. Creatinine Clearance 119 mL/min (70-130); Calcium 7.3 mg/dL (7.8-10.44); Carbon Dioxide 20 mmol/L (22-29); Chloride 99 mmol/L (98-107); Glucose 118 mg/dL (70-105); Potassium 3.1 mmol/L (3.5-5.1); Sodium 133 mmol/L (136-145)
[2020-09-17 18:29] LABS: Anion Gap 15 mmol/L (10-20); BUN (Urea Nitrogen) Less than 4 mg/dL (7.0-18.7); Calc. Creatinine Clearance 112 mL/min (70-130); Calcium 7.2 mg/dL (7.8-10.44); Carbon Dioxide 18 mmol/L (22-29); Chloride 102 mmol/L (98-107); Glucose 134 mg/dL (70-105); Sodium 132 mmol/L (136-145)
[2020-09-17 18:40] LABS: Potassium 2.8 mmol/L (3.5-5.1)
[2020-09-18] MEDS: metroNIDAZOLE 500 MG in Premix Bag 1 BAG IVPB SCH ×3 (05:21→22:49)
[2020-09-18] MEDS: Vancomycin HCl 25 MG/ML Oral PO SCH ×3 (05:22→18:22)
[2020-09-18] MEDS: NS 0.9% w/ 20 MEQ KCL 1,000 ML/1,000 ML BAG IV SCH ×3 (05:26→23:02)
[2020-09-18] MEDS: Multivitamins, Adult 10 ML, Folic Acid 1 MG in Dextrose 5 %-0.45 % NaCl 1,000 ML IV SCH (08:39)
[2020-09-18] MEDS: Thiamine HCl 200 MG/2 ML VIAL SLOW IVP SCH (08:41)
[2020-09-18] MEDS: Amlodipine 10 MG TAB PO SCH (08:45)
[2020-09-18] MEDS: Saccharomyces boulardii 250 MG CAP PO SCH (08:46)
[2020-09-18 10:10] LABS: #Lymphocytes 1.8 thou/uL (1.20-3.40); #Monocytes 0.4 thou/uL (0.11-0.59); #Neutrophils 5.1 thou/uL (1.40-6.50); %Basophils 0.5 % (0.0-1.0); %Eosinophils 0.6 % (0.0-10.0); %Lymphocytes 24.5 % (21.0-51.0); %Monocytes 5.8 % (0.0-10.0); %Neutrophils 68.5 % (42.0-75.0); Hemoglobin 8.8 g/dL (12.0-16.0); Mean Corpuscular HGB CONC 32.7 g/dL (32.0-36.0); Mean Corpuscular Hemoglobin 33.1 pg (27.0-31.0); Mean Platelet Volume 8.1 fL (7.4-10.4); Platelet Count 163 thou/uL (130-400); RBC Distribution Width 15.3 % (11.5-14.5); Red Blood Cell (RBC) Count 2.66 mill/uL (4.20-5.40); White Blood Cell (WBC) Count 7.5 thou/uL (4.8-10.8)
[2020-09-18 10:16] LABS: INR-International Normal Ratio 2.4; PTT 42.8 sec (22.9-36.1); Prothrombin Time 26.6 sec (12.0-14.7)
[2020-09-18 10:27] LABS: ALT (SGPT) 10 U/L (8-55); AST (SGOT) 50 U/L (5-34); Albumin 2.5 g/dL (3.5-5.0); Alkaline Phosphatase 100 U/L (40-110); Anion Gap 12 mmol/L (10-20); BUN (Urea Nitrogen) Less than 4 mg/dL (7.0-18.7); Bilirubin, Total 9.7 mg/dL (0.2-1.2); Calc. Creatinine Clearance 112 mL/min (70-130); Calcium 7.7 mg/dL (7.8-10.44); Carbon Dioxide 18 mmol/L (22-29); Chloride 102 mmol/L (98-107); Globulin 3.6 g/dL (2.4-3.5); Glucose 117 mg/dL (70-105); Magnesium 1.6 mg/dL (1.6-2.6); Protein, Total 6.1 g/dL (6.0-8.3); Sodium 129 mmol/L (136-145)
[2020-09-18 10:37] LABS: Phosphorus 1.5 mg/dL (2.3-4.7); Potassium 2.8 mmol/L (3.5-5.1)
[2020-09-18] MEDS ORDERED: Potassium Phosphate 30 MMOL in Sodium Chloride 0.9% 500 ML IVPB SCH (10:45)
[2020-09-18] MEDS ORDERED: Magnesium 2 GM/50 ML 2 GM in Premix Bag 1 BAG IVPB SCH (10:45)
[2020-09-18] MEDS: Pantoprazole 40 MG VIAL IVP SCH (10:59)
[2020-09-18] MEDS ORDERED: Potassium Phosphate 30 MMOL in Sodium Chloride 0.9% 250 ML 250 ML IVPB SCH (11:30)
[2020-09-18 12:38] LABS: HIV (1/2) Antibody/Antigen Non-Reactive (NonReactive)
[2020-09-18 12:44] LABS: Syphilis Antibody Index 1.86 S/CO (<1.00 Non-Reactive)
[2020-09-18] MEDS: Ibuprofen 800 MG TAB PO PRN ×2 (12:52→18:25)
[2020-09-18] MEDS: Potassium Chloride 20 MEQ in Premix Bag 1 BAG IVPB SCH ×2 (13:15→20:08)
[2020-09-18 15:15] LABS: Syphilis Antibody INDETERMINATE (Nonreactive)
[2020-09-18] MEDS: Acetaminophen 325 MG TAB PO PRN (20:35)
[2020-09-18] MEDS ORDERED: Mag-Al 1200 mg/1200 mg/30 ML UDCUP PO SCH (22:15)
[2020-09-18] MEDS ORDERED: Dicyclomine 10 MG CAP PO SCH (22:15)
[2020-09-18] MEDS ORDERED: Ondansetron PF 4 MG/2 ML Vial IVP SCH (22:15)
[2020-09-18 22:48] LABS: Anion Gap 14 mmol/L (10-20); BUN (Urea Nitrogen) Less than 4 mg/dL (7.0-18.7); Calc. Creatinine Clearance 110 mL/min (70-130); Calcium 7.4 mg/dL (7.8-10.44); Carbon Dioxide 15 mmol/L (22-29); Chloride 104 mmol/L (98-107); Glucose 98 mg/dL (70-105); Potassium 3.7 mmol/L (3.5-5.1); Sodium 129 mmol/L (136-145)
[2020-09-19] MEDS: Vancomycin HCl 25 MG/ML Oral PO SCH ×4 (00:21→18:47)
[2020-09-19] MEDS: metroNIDAZOLE 500 MG in Premix Bag 1 BAG IVPB SCH ×2 (05:17→16:50)
[2020-09-19] MEDS: Ondansetron ODT 4 MG TAB PO PRN (05:31)
[2020-09-19] MEDS: NS 0.9% w/ 20 MEQ KCL 1,000 ML/1,000 ML BAG IV SCH ×2 (05:32→21:21)
[2020-09-19 06:16] LABS: #Eosinphils 0.1 thou/uL (0.0-0.7); #Lymphocytes 1.9 thou/uL (1.20-3.40); #Monocytes 0.5 thou/uL (0.11-0.59); #Neutrophils 4.6 thou/uL (1.40-6.50); %Basophils 0.5 % (0.0-1.0); %Eosinophils 1.2 % (0.0-10.0); %Lymphocytes 26.5 % (21.0-51.0); %Monocytes 6.7 % (0.0-10.0); %Neutrophils 65.2 % (42.0-75.0); Hemoglobin 8.4 g/dL (12.0-16.0); Mean Corpuscular HGB CONC 31.9 g/dL (32.0-36.0); Mean Corpuscular Hemoglobin 32.4 pg (27.0-31.0); Mean Platelet Volume 8.2 fL (7.4-10.4); Platelet Count 167 thou/uL (130-400); RBC Distribution Width 15.5 % (11.5-14.5); Red Blood Cell (RBC) Count 2.59 mill/uL (4.20-5.40); White Blood Cell (WBC) Count 7.1 thou/uL (4.8-10.8)
[2020-09-19 06:46] LABS: ALT (SGPT) Less than 7 U/L (8-55); AST (SGOT) 37 U/L (5-34); Albumin 2.2 g/dL (3.5-5.0); Alkaline Phosphatase 90 U/L (40-110); Anion Gap 12 mmol/L (10-20); BUN (Urea Nitrogen) Less than 4 mg/dL (7.0-18.7); Bilirubin, Total 7.9 mg/dL (0.2-1.2); Calc. Creatinine Clearance 91 mL/min (70-130); Calcium 7.3 mg/dL (7.8-10.44); Carbon Dioxide 17 mmol/L (22-29); Chloride 106 mmol/L (98-107); Globulin 3.3 g/dL (2.4-3.5); Glucose 92 mg/dL (70-105); Magnesium 1.7 mg/dL (1.6-2.6); Phosphorus 2.2 mg/dL (2.3-4.7); Potassium 3.4 mmol/L (3.5-5.1); Protein, Total 5.5 g/dL (6.0-8.3); Sodium 132 mmol/L (136-145)
[2020-09-19] MEDS ORDERED: Potassium Phosphate 30 MMOL in Sodium Chloride 0.9% 250 ML 250 ML IVPB SCH (07:15)
[2020-09-19] MEDS ORDERED: Magnesium 2 GM/50 ML 2 GM in Premix Bag 1 BAG IVPB SCH (07:15)
[2020-09-19] MEDS: Pantoprazole 40 MG VIAL IVP SCH (08:16)
[2020-09-19] MEDS: Saccharomyces boulardii 250 MG CAP PO SCH (08:19)
[2020-09-19] MEDS ORDERED: Dicyclomine 10 MG CAP PO SCH (09:00)
[2020-09-19] MEDS: Amlodipine 10 MG TAB PO SCH (10:18)
[2020-09-19] MEDS: Nicotine 14 MG PATCH TD SCH (10:20)
[2020-09-19] MEDS: Multivitamins, Adult 10 ML, Folic Acid 1 MG in Dextrose 5 %-0.45 % NaCl 1,000 ML IV SCH (11:19)
[2020-09-19] MEDS: Thiamine HCl 200 MG/2 ML VIAL SLOW IVP SCH (11:20)
[2020-09-19 12:42] LABS: INR-International Normal Ratio 2.3; PTT 42.8 sec (22.9-36.1); Prothrombin Time 25.9 sec (12.0-14.7)
[2020-09-19 13:10] VITALS: BMI 19.5
[2020-09-19] MEDS: Guaifenesin DM 100-10/5 ML UDCUP PO PRN ×2 (16:48→21:16)
[2020-09-19] MEDS: Ibuprofen 800 MG TAB PO PRN (16:48)
[2020-09-19] MEDS: Dicyclomine 10 MG CAP PO PRN (18:46)
[2020-09-19] MEDS: Ondansetron PF 4 MG/2 ML Vial IVP PRN (21:16)
[2020-09-19] MEDS: Acetaminophen 325 MG TAB PO PRN (21:20)
[2020-09-20] MEDS: Vancomycin HCl 25 MG/ML Oral PO SCH ×5 (00:42→23:16)
[2020-09-20] MEDS: NS 0.9% w/ 20 MEQ KCL 1,000 ML/1,000 ML BAG IV SCH ×4 (00:42→23:16)
[2020-09-20] MEDS: metroNIDAZOLE 500 MG in Premix Bag 1 BAG IVPB SCH ×3 (00:43→16:08)
[2020-09-20] MEDS: Dicyclomine 10 MG CAP PO PRN ×2 (00:43→09:06)
[2020-09-20 06:20] LABS: #Basophils 0.1 thou/uL (0.0-0.2); #Eosinphils 0.1 thou/uL (0.0-0.7); #Lymphocytes 1.8 thou/uL (1.20-3.40); #Monocytes 0.4 thou/uL (0.11-0.59); #Neutrophils 4.5 thou/uL (1.40-6.50); %Eosinophils 0.9 % (0.0-10.0); %Lymphocytes 26.5 % (21.0-51.0); %Monocytes 6.2 % (0.0-10.0); %Neutrophils 65.4 % (42.0-75.0); Mean Corpuscular HGB CONC 32.6 g/dL (32.0-36.0); Mean Corpuscular Hemoglobin 33.7 pg (27.0-31.0); Mean Platelet Volume 8.4 fL (7.4-10.4); Platelet Count 171 thou/uL (130-400); RBC Distribution Width 15.7 % (11.5-14.5); Red Blood Cell (RBC) Count 2.66 mill/uL (4.20-5.40); White Blood Cell (WBC) Count 6.8 thou/uL (4.8-10.8)
[2020-09-20 06:27] LABS: INR-International Normal Ratio 2.4; Prothrombin Time 26.5 sec (12.0-14.7)
[2020-09-20 06:40] LABS: ALT (SGPT) 7 U/L (8-55); AST (SGOT) 41 U/L (5-34); Albumin 2.2 g/dL (3.5-5.0); Alkaline Phosphatase 99 U/L (40-110); Anion Gap 14 mmol/L (10-20); BUN (Urea Nitrogen) Less than 4 mg/dL (7.0-18.7); Bilirubin, Total 8.3 mg/dL (0.2-1.2); Calc. Creatinine Clearance 64 mL/min (70-130); Calcium 7.7 mg/dL (7.8-10.44); Carbon Dioxide 14 mmol/L (22-29); Chloride 110 mmol/L (98-107); Globulin 3.6 g/dL (2.4-3.5); Glucose 71 mg/dL (70-105); Magnesium 1.9 mg/dL (1.6-2.6); Phosphorus 3.7 mg/dL (2.3-4.7); Potassium 4.4 mmol/L (3.5-5.1); Protein, Total 5.8 g/dL (6.0-8.3); Sodium 134 mmol/L (136-145)
[2020-09-20] MEDS: Multivitamins, Adult 10 ML, Folic Acid 1 MG in Dextrose 5 %-0.45 % NaCl 1,000 ML IV SCH (08:58)
[2020-09-20] MEDS: Thiamine HCl 200 MG/2 ML VIAL SLOW IVP SCH (09:02)
[2020-09-20] MEDS: Saccharomyces boulardii 250 MG CAP PO SCH (09:03)
[2020-09-20] MEDS: Amlodipine 10 MG TAB PO SCH (09:03)
[2020-09-20] MEDS: Pantoprazole 40 MG VIAL IVP SCH (09:04)
[2020-09-20] MEDS: Nicotine 14 MG PATCH TD SCH (10:54)
[2020-09-20] MEDS: Ibuprofen 800 MG TAB PO PRN ×2 (13:33→23:22)
[2020-09-20] MEDS: Guaifenesin DM 100-10/5 ML UDCUP PO PRN ×2 (15:55→20:59)
[2020-09-21] MEDS: metroNIDAZOLE 500 MG in Premix Bag 1 BAG IVPB SCH ×3 (01:27→17:02)
[2020-09-21] MEDS: Acetaminophen 325 MG TAB PO PRN (03:15)
[2020-09-21] MEDS: Dicyclomine 10 MG CAP PO PRN (03:15)
[2020-09-21] MEDS: Vancomycin HCl 25 MG/ML Oral PO SCH ×4 (05:31→23:30)
[2020-09-21] MEDS: Guaifenesin DM 100-10/5 ML UDCUP PO PRN ×2 (05:41→23:39)
[2020-09-21] MEDS: Cepastat Lozenges 1 LOZ PO PRN (05:54)
[2020-09-21 06:08] LABS: #Basophils 0.1 thou/uL (0.0-0.2); #Eosinphils 0.1 thou/uL (0.0-0.7); #Monocytes 0.7 thou/uL (0.11-0.59); #Neutrophils 5.1 thou/uL (1.40-6.50); %Basophils 0.7 % (0.0-1.0); %Eosinophils 0.9 % (0.0-10.0); %Lymphocytes 25.4 % (21.0-51.0); %Monocytes 9.4 % (0.0-10.0); %Neutrophils 63.6 % (42.0-75.0); Hemoglobin 8.8 g/dL (12.0-16.0); Mean Corpuscular HGB CONC 31.3 g/dL (32.0-36.0); Mean Corpuscular Hemoglobin 32.7 pg (27.0-31.0); Mean Platelet Volume 8.3 fL (7.4-10.4); Platelet Count 177 thou/uL (130-400); RBC Distribution Width 15.7 % (11.5-14.5); Red Blood Cell (RBC) Count 2.69 mill/uL (4.20-5.40); White Blood Cell (WBC) Count 7.9 thou/uL (4.8-10.8)
[2020-09-21 06:13] LABS: INR-International Normal Ratio 2.7; Prothrombin Time 29.3 sec (12.0-14.7)
[2020-09-21 06:40] LABS: ALT (SGPT) 8 U/L (8-55); AST (SGOT) 39 U/L (5-34); Alkaline Phosphatase 95 U/L (40-110); Anion Gap 15 mmol/L (10-20); BUN (Urea Nitrogen) 4 mg/dL (7.0-18.7); Calc. Creatinine Clearance 40 mL/min (70-130); Calcium 8.1 mg/dL (7.8-10.44); Carbon Dioxide 10 mmol/L (22-29); Chloride 111 mmol/L (98-107); Globulin 3.8 g/dL (2.4-3.5); Glucose 78 mg/dL (70-105); Magnesium 1.8 mg/dL (1.6-2.6); Phosphorus 3.6 mg/dL (2.3-4.7); Potassium 4.2 mmol/L (3.5-5.1); Protein, Total 5.8 g/dL (6.0-8.3); Sodium 132 mmol/L (136-145)
[2020-09-21] MEDS: NS 0.9% w/ 20 MEQ KCL 1,000 ML/1,000 ML BAG IV SCH ×2 (08:06→10:06)
[2020-09-21] MEDS: Pantoprazole 40 MG VIAL IVP SCH (08:07)
[2020-09-21] MEDS: Nicotine 14 MG PATCH TD SCH (08:08)
[2020-09-21] MEDS: Saccharomyces boulardii 250 MG CAP PO SCH (08:08)
[2020-09-21] MEDS: Amlodipine 10 MG TAB PO SCH (09:59)
[2020-09-21] MEDS: Multivitamins, Adult 10 ML, Folic Acid 1 MG in Dextrose 5 %-0.45 % NaCl 1,000 ML IV SCH (10:01)
[2020-09-21] MEDS: Thiamine HCl 200 MG/2 ML VIAL SLOW IVP SCH (10:01)
[2020-09-21] MEDS: Albumin 25% 25 GM/100 ML BOT IVPB SCH ×3 (11:12→23:30)
[2020-09-21] MEDS ORDERED: Sodium Bicarbonate 2.5 MEQ/5 ML VIAL ONE (13:32)
[2020-09-21] MEDS ORDERED: Lidocaine 1% PF 5 ML VIAL ONE (13:32)
[2020-09-21 15:12] LABS: RBC Count-Automated (BF) 32 /cu.mm; WBC/Nucleated-Auto (BF) 75 uL
[2020-09-21 15:23] LABS: BF Color Yellow; Body Fluid Source Ascites Body Fluid; Clarity Clear (Clear); Tube # EDTA
[2020-09-21 15:34] LABS: BF Segmented Neutrophils 12 %; Cell Count Non Hematic 77 %; Lymphocytes 10 %
[2020-09-22] MEDS: metroNIDAZOLE 500 MG in Premix Bag 1 BAG IVPB SCH ×3 (01:53→17:06)
[2020-09-22] MEDS: NS 0.9% w/ 20 MEQ KCL 1,000 ML/1,000 ML BAG IV SCH (01:58)
[2020-09-22] MEDS: Albumin 25% 25 GM/100 ML BOT IVPB SCH ×4 (05:45→23:18)
[2020-09-22] MEDS: Vancomycin HCl 25 MG/ML Oral PO SCH ×4 (05:46→23:18)
[2020-09-22] MEDS: Amlodipine 10 MG TAB PO SCH (09:00)
[2020-09-22] MEDS: Pantoprazole 40 MG VIAL IVP SCH (09:08)
[2020-09-22] MEDS: Nicotine 14 MG PATCH TD SCH (09:08)
[2020-09-22] MEDS: Saccharomyces boulardii 250 MG CAP PO SCH (09:08)
[2020-09-22] MEDS: Cepastat Lozenges 1 LOZ PO PRN (09:46)
[2020-09-22] MEDS: Acetaminophen 325 MG TAB PO PRN ×2 (09:47→18:46)
[2020-09-22] MEDS: Ondansetron ODT 4 MG TAB PO PRN (09:47)
[2020-09-22 10:38] LABS: Hemoglobin 8.6 g/dL (12.0-16.0); Mean Corpuscular HGB CONC 31.2 g/dL (32.0-36.0); Mean Corpuscular Hemoglobin 33.8 pg (27.0-31.0); Mean Platelet Volume 8.5 fL (7.4-10.4); Platelet Count 176 thou/uL (130-400); RBC Distribution Width 15.8 % (11.5-14.5); Red Blood Cell (RBC) Count 2.56 mill/uL (4.20-5.40); White Blood Cell (WBC) Count 5.7 thou/uL (4.8-10.8)
[2020-09-22 10:39] LABS: INR-International Normal Ratio 3.1; PTT 53.5 sec (22.9-36.1); Prothrombin Time 32.4 sec (12.0-14.7)
[2020-09-22 10:54] LABS: #Basophils 0.1 thou/uL (0.0-0.2); #Eosinphils 0.1 thou/uL (0.0-0.7); #Lymphocytes 1.3 thou/uL (1.20-3.40); #Monocytes 0.4 thou/uL (0.11-0.59); #Neutrophils 3.9 thou/uL (1.40-6.50); %Basophils 1.2 % (0.0-1.0); %Eosinophils 1.3 % (0.0-10.0); %Lymphocytes 22.4 % (21.0-51.0); %Monocytes 6.7 % (0.0-10.0); %Neutrophils 68.4 % (42.0-75.0)
[2020-09-22 11:00] LABS: ALT (SGPT) 8 U/L (8-55); AST (SGOT) 34 U/L (5-34); Albumin 2.6 g/dL (3.5-5.0); Alkaline Phosphatase 72 U/L (40-110); Anion Gap 15 mmol/L (10-20); BUN (Urea Nitrogen) 5 mg/dL (7.0-18.7); Bilirubin, Total 6.5 mg/dL (0.2-1.2); Calc. Creatinine Clearance 34 mL/min (70-130); Calcium 8.3 mg/dL (7.8-10.44); Chloride 113 mmol/L (98-107); Globulin 3.1 g/dL (2.4-3.5); Glucose 61 mg/dL (70-105); Magnesium 1.7 mg/dL (1.6-2.6); Potassium 3.9 mmol/L (3.5-5.1); Protein, Total 5.7 g/dL (6.0-8.3); Sodium 133 mmol/L (136-145)
[2020-09-22 11:26] LABS: Carbon Dioxide 9 mmol/L (22-29)
[2020-09-22] MEDS ORDERED: Sodium Bicarb 50 MEQ/50 ML Abboject 8.4% SYRINGE IVP SCH (11:45)
[2020-09-22] MEDS: Multivitamins, Adult 10 ML, Folic Acid 1 MG in Dextrose 5 %-0.45 % NaCl 1,000 ML IV SCH (12:27)
[2020-09-22] MEDS: Thiamine HCl 200 MG/2 ML VIAL SLOW IVP SCH (12:27)
[2020-09-22 14:45] LABS: Clarity HAZY (Clear); Specific Gravity, Urine 1.017 (1.002-1.036)
[2020-09-22 14:46] LABS: Bilirubin Unable to Interpret (Negative); Blood, Urine Unable to Interpret (Negative); Glucose, Urine (Dipstick) Unable to Interpret mg/dL (Negative); Ketone, Urine Unable to Interpret mg/dL (Negative); Leukocyte Unable to Interpret (Negative); Nitrite Unable to Interpret (Negative); Protein, Urine (Dipstick) Unable to Interpret mg/dL (Neg-Trace); Urobilinogen UNABLE TO INTERPRET mg/dL (Less than 2); pH, Urine 5.4 (5.0-9.0)
[2020-09-22 14:48] LABS: RBC/HPF 0-3 HPF (0-3); Squamous Epithelial 0-3 HPF (0-3)
[2020-09-22 14:49] LABS: Bacteria/HPF Rare-Few HPF (None Seen)
[2020-09-22 14:50] LABS: Urine Culture Reflex Yes Yes
[2020-09-22] MEDS: Lactated Ringer's 1,000 ML IV SCH (18:55)
[2020-09-22 19:32] LABS: Anion Gap 15 mmol/L (10-20); BUN (Urea Nitrogen) 5 mg/dL (7.0-18.7); Calc. Creatinine Clearance 33 mL/min (70-130); Calcium 8.3 mg/dL (7.8-10.44); Carbon Dioxide 12 mmol/L (22-29); Chloride 113 mmol/L (98-107); Glucose 108 mg/dL (70-105); Potassium 3.5 mmol/L (3.5-5.1); Sodium 136 mmol/L (136-145)
[2020-09-22] MEDS: Sodium Bicarbonate 150 MEQ in Dextrose 5% in Water 850 ML IV SCH (21:08)
[2020-09-23] MEDS: metroNIDAZOLE 500 MG in Premix Bag 1 BAG IVPB SCH ×3 (00:18→17:50)
[2020-09-23] MEDS: Sodium Bicarbonate 150 MEQ in Dextrose 5% in Water 850 ML IV SCH ×2 (05:08→15:50)
[2020-09-23] MEDS: Vancomycin HCl 25 MG/ML Oral PO SCH ×3 (05:08→17:50)
[2020-09-23] MEDS: Albumin 25% 25 GM/100 ML BOT IVPB SCH ×2 (05:08→12:25)
[2020-09-23 07:36] LABS: Anion Gap 16 mmol/L (10-20); BUN (Urea Nitrogen) 5 mg/dL (7.0-18.7); Calc. Creatinine Clearance 34 mL/min (70-130); Calcium 8.4 mg/dL (7.8-10.44); Carbon Dioxide 15 mmol/L (22-29); Chloride 110 mmol/L (98-107); Glucose 117 mg/dL (70-105); Magnesium 1.6 mg/dL (1.6-2.6); Sodium 138 mmol/L (136-145)
[2020-09-23 07:40] LABS: Potassium 2.9 mmol/L (3.5-5.1)
[2020-09-23] MEDS ORDERED: Magnesium Sulfate 2 GM in Sodium Chloride 0.9% 100 ML IVPB SCH (08:00)
[2020-09-23] MEDS ORDERED: Magnesium 2 GM/50 ML 2 GM in Premix Bag 1 BAG IVPB SCH (08:00)
[2020-09-23] MEDS: Nicotine 14 MG PATCH TD SCH (08:36)
[2020-09-23] MEDS: Pantoprazole 40 MG VIAL IVP SCH (08:36)
[2020-09-23] MEDS: Saccharomyces boulardii 250 MG CAP PO SCH (08:36)
[2020-09-23] MEDS: Nystatin 500,000 UNITS/5 ML UDCUP SSW SCH ×4 (10:02→21:21)
[2020-09-23] MEDS: Multivitamins, Adult 10 ML, Folic Acid 1 MG in Dextrose 5 %-0.45 % NaCl 1,000 ML IV SCH (10:02)
[2020-09-23] MEDS: Thiamine HCl 200 MG/2 ML VIAL SLOW IVP SCH (10:03)
[2020-09-23] MEDS: Potassium Chloride 20 MEQ in Premix Bag 1 BAG IVPB SCH ×2 (12:29→15:47)
[2020-09-24] MEDS: Vancomycin HCl 25 MG/ML Oral PO SCH ×4 (00:05→18:13)
[2020-09-24] MEDS: Sodium Bicarbonate 150 MEQ in Dextrose 5% in Water 850 ML IV SCH ×4 (00:05→22:44)
[2020-09-24] MEDS: metroNIDAZOLE 500 MG in Premix Bag 1 BAG IVPB SCH ×3 (00:06→18:13)
[2020-09-24 07:05] LABS: ALT (SGPT) 8 U/L (8-55); AST (SGOT) 37 U/L (5-34); Albumin 3.2 g/dL (3.5-5.0); Alkaline Phosphatase 69 U/L (40-110); Anion Gap 15 mmol/L (10-20); BUN (Urea Nitrogen) 5 mg/dL (7.0-18.7); Bilirubin, Total 6.5 mg/dL (0.2-1.2); Calc. Creatinine Clearance 38 mL/min (70-130); Calcium 8.5 mg/dL (7.8-10.44); Carbon Dioxide 20 mmol/L (22-29); Chloride 108 mmol/L (98-107); Globulin 3.1 g/dL (2.4-3.5); Glucose 115 mg/dL (70-105); INR-International Normal Ratio 3.2; Magnesium 1.9 mg/dL (1.6-2.6); Phosphorus 3.9 mg/dL (2.3-4.7); Potassium 3.4 mmol/L (3.5-5.1); Protein, Total 6.3 g/dL (6.0-8.3); Prothrombin Time 33.6 sec (12.0-14.7); Sodium 140 mmol/L (136-145)
[2020-09-24] MEDS ORDERED: Potassium Chloride 10 MEQ in Premix Bag 1 BAG IVPB SCH (08:15)
[2020-09-24] MEDS: Nicotine 14 MG PATCH TD SCH (10:38)
[2020-09-24] MEDS: Saccharomyces boulardii 250 MG CAP PO SCH (10:39)
[2020-09-24] MEDS: Pantoprazole 40 MG VIAL IVP SCH (10:39)
[2020-09-24] MEDS: Thiamine HCl 200 MG/2 ML VIAL SLOW IVP SCH (10:39)
[2020-09-24] MEDS: Nystatin 500,000 UNITS/5 ML UDCUP SSW SCH ×4 (10:42→20:27)
[2020-09-24] MEDS: Multivitamins, Adult 10 ML, Folic Acid 1 MG in Dextrose 5 %-0.45 % NaCl 1,000 ML IV SCH (15:39)
[2020-09-24] MEDS: Ondansetron PF 4 MG/2 ML Vial IVP PRN (22:48)
[2020-09-25] MEDS: Vancomycin HCl 25 MG/ML Oral PO SCH ×5 (00:16→23:47)
[2020-09-25] MEDS: metroNIDAZOLE 500 MG in Premix Bag 1 BAG IVPB SCH ×2 (00:16→09:16)
[2020-09-25] MEDS: Sodium Bicarbonate 150 MEQ in Dextrose 5% in Water 850 ML IV SCH ×2 (04:38→09:21)
[2020-09-25] MEDS: Multivitamins, Adult 10 ML, Folic Acid 1 MG in Dextrose 5 %-0.45 % NaCl 1,000 ML IV SCH (09:14)
[2020-09-25] MEDS: Thiamine HCl 200 MG/2 ML VIAL SLOW IVP SCH (09:15)
[2020-09-25] MEDS: Cepastat Lozenges 1 LOZ PO PRN (09:15)
[2020-09-25] MEDS: Saccharomyces boulardii 250 MG CAP PO SCH (09:15)
[2020-09-25] MEDS: Nystatin 500,000 UNITS/5 ML UDCUP SSW SCH ×4 (09:16→21:20)
[2020-09-25] MEDS: Nicotine 14 MG PATCH TD SCH (09:16)
[2020-09-25] MEDS: Pantoprazole 40 MG VIAL IVP SCH (09:16)
[2020-09-25 09:29] LABS: Anion Gap 12 mmol/L (10-20); BUN (Urea Nitrogen) 6 mg/dL (7.0-18.7); Calc. Creatinine Clearance 35 mL/min (70-130); Calcium 8.3 mg/dL (7.8-10.44); Carbon Dioxide 26 mmol/L (22-29); Chloride 104 mmol/L (98-107); Glucose 107 mg/dL (70-105); Magnesium 1.9 mg/dL (1.6-2.6); Phosphorus 4.2 mg/dL (2.3-4.7); Sodium 139 mmol/L (136-145)
[2020-09-25 09:30] LABS: #Basophils 0.1 thou/uL (0.0-0.2); #Eosinphils 0.1 thou/uL (0.0-0.7); #Lymphocytes 2.4 thou/uL (1.20-3.40); #Monocytes 0.6 thou/uL (0.11-0.59); #Neutrophils 7.2 thou/uL (1.40-6.50); %Basophils 0.8 % (0.0-1.0); %Eosinophils 0.7 % (0.0-10.0); %Lymphocytes 23.5 % (21.0-51.0); %Monocytes 5.6 % (0.0-10.0); %Neutrophils 69.3 % (42.0-75.0); Hemoglobin 8.3 g/dL (12.0-16.0); Mean Corpuscular HGB CONC 32.3 g/dL (32.0-36.0); Mean Corpuscular Hemoglobin 32.9 pg (27.0-31.0); Mean Platelet Volume 8.7 fL (7.4-10.4); Platelet Count 145 thou/uL (130-400); RBC Distribution Width 15.5 % (11.5-14.5); Red Blood Cell (RBC) Count 2.53 mill/uL (4.20-5.40); White Blood Cell (WBC) Count 10.4 thou/uL (4.8-10.8)
[2020-09-25 09:34] LABS: Potassium 2.6 mmol/L (3.5-5.1)
[2020-09-25] MEDS ORDERED: Potassium Chloride 40 MEQ in Premix Bag 1 BAG IVPB SCH (10:00)
[2020-09-25] MEDS: Potassium Chloride 20 MEQ in Premix Bag 1 BAG IVPB SCH ×2 (11:05→13:10)
[2020-09-25] MEDS ORDERED: Iopamidol-370 76% 500 ML 1 ML ONE (12:05)
[2020-09-25] MEDS ORDERED: Furosemide 20 MG/2 ML VIAL SLOW IVP SCH (17:30)
[2020-09-25] MEDS: cefTRIAXone\\ROCEPHIN 1 GM in Sodium Chloride 0.9% 100 ML IVPB SCH (18:42)
[2020-09-25] MEDS ORDERED: Furosemide 40 MG/4 ML VIAL SLOW IVP SCH (23:45)
[2020-09-26] MEDS: Vancomycin HCl 25 MG/ML Oral PO SCH ×3 (05:44→17:06)
[2020-09-26 08:03] LABS: Albumin 2.4 g/dL (3.5-5.0); Anion Gap 15 mmol/L (10-20); BUN (Urea Nitrogen) 6 mg/dL (7.0-18.7); Calc. Creatinine Clearance 33 mL/min (70-130); Calcium 8.8 mg/dL (7.8-10.44); Carbon Dioxide 21 mmol/L (22-29); Chloride 105 mmol/L (98-107); Glucose 74 mg/dL (70-105); Magnesium 1.8 mg/dL (1.6-2.6); Phosphorus 4.9 mg/dL (2.3-4.7); Sodium 138 mmol/L (136-145)
[2020-09-26 08:12] LABS: Potassium 2.8 mmol/L (3.5-5.1)
[2020-09-26] MEDS ORDERED: Magnesium Sulfate 2 GM in Sodium Chloride 0.9% 100 ML IVPB SCH (08:30)
[2020-09-26] MEDS ORDERED: Magnesium 2 GM/50 ML 2 GM in Premix Bag 1 BAG IVPB SCH (08:30)
[2020-09-26] MEDS: Saccharomyces boulardii 250 MG CAP PO SCH (09:31)
[2020-09-26] MEDS: Pantoprazole 40 MG VIAL IVP SCH (09:31)
[2020-09-26] MEDS: Nicotine 14 MG PATCH TD SCH (09:31)
[2020-09-26] MEDS: Multivitamin W/ Minerals 1 TAB PO SCH (09:31)
[2020-09-26] MEDS: Folic Acid 1 MG TAB PO SCH (09:31)
[2020-09-26] MEDS: Potassium Chloride 20 MEQ in Premix Bag 1 BAG IVPB SCH ×2 (09:31→12:10)
[2020-09-26] MEDS: Nystatin 500,000 UNITS/5 ML UDCUP SSW SCH ×4 (09:31→20:11)
[2020-09-26] MEDS: Thiamine 100 MG TAB PO SCH (09:31)
[2020-09-26] MEDS: Ondansetron PF 4 MG/2 ML Vial IVP PRN (09:58)
[2020-09-26] MEDS ORDERED: Erythromycin Base 0.5% Oint 1 GM TUBE L EYE SCH ×2 (10:30→21:00)
[2020-09-26] MEDS ORDERED: Spironolactone 25 MG TAB PO SCH (11:00)
[2020-09-26] MEDS: Sodium Bicarb 50 MEQ/50 ML Abboject 8.4% SYRINGE IVP SCH ×2 (12:01→15:01)
[2020-09-26] MEDS: Albumin 25% 25 GM/100 ML BOT IVPB SCH ×2 (12:01→17:06)
[2020-09-26] MEDS: Scopolamine 1.5 mg/72 hour Patch TD SCH (12:03)
[2020-09-26] MEDS ORDERED: Potassium Chloride 20 MEQ TAB PO SCH (13:00)
[2020-09-26] MEDS ORDERED: Sodium Bicarb 50 MEQ/50 ML Abboject 8.4% SYRINGE IVP SCH (14:30)
[2020-09-26] MEDS ORDERED: Lidocaine 1% PF 5 ML VIAL ONE (15:08)
[2020-09-26] MEDS ORDERED: Sodium Bicarbonate 2.5 MEQ/5 ML VIAL ONE (15:08)
[2020-09-26] MEDS ORDERED: DEXTROSE 5% IV SCH (15:30)
[2020-09-26] MEDS ORDERED: WATER IV SCH (15:30)
[2020-09-26] MEDS ORDERED: SODIUM BICARBONATE IV SCH (15:30)
[2020-09-26] MEDS: cefTRIAXone\\ROCEPHIN 1 GM in Sodium Chloride 0.9% 100 ML IVPB SCH (17:06)
[2020-09-26] MEDS ORDERED: Furosemide 20 MG/2 ML VIAL SLOW IVP SCH (17:45)
[2020-09-26] MEDS: Cepastat Lozenges 1 LOZ PO PRN (20:11)
[2020-09-26] MEDS ORDERED: Erythromycin Base 0.5% Oint 1 GM TUBE EA EYE SCH (21:00)
[2020-09-27] MEDS: Vancomycin HCl 25 MG/ML Oral PO SCH ×5 (00:06→23:43)
[2020-09-27] MEDS: Albumin 25% 25 GM/100 ML BOT IVPB SCH ×2 (00:06→06:07)
[2020-09-27 04:21] LABS: INR-International Normal Ratio 2.9; PTT 55.9 sec (22.9-36.1); Prothrombin Time 30.6 sec (12.0-14.7)
[2020-09-27 04:31] LABS: ALT (SGPT) 8 U/L (8-55); AST (SGOT) 43 U/L (5-34); Albumin 2.9 g/dL (3.5-5.0); Alkaline Phosphatase 54 U/L (40-110); Anion Gap 16 mmol/L (10-20); BUN (Urea Nitrogen) 7 mg/dL (7.0-18.7); Bilirubin, Direct 4.6 mg/dL (0.1-0.3); Calc. Creatinine Clearance 34 mL/min (70-130); Calcium 8.9 mg/dL (7.8-10.44); Carbon Dioxide 24 mmol/L (22-29); Chloride 106 mmol/L (98-107); Glucose 83 mg/dL (70-105); Phosphorus 4.3 mg/dL (2.3-4.7); Protein, Total 5.6 g/dL (6.0-8.3); Sodium 143 mmol/L (136-145)
[2020-09-27 04:35] LABS: Potassium 2.5 mmol/L (3.5-5.1)
[2020-09-27] MEDS ORDERED: Potassium Chloride 20 MEQ TAB PO SCH ×2 (04:45→08:30)
[2020-09-27] MEDS ORDERED: Furosemide 20 MG/2 ML VIAL SLOW IVP SCH ×2 (05:00→07:00)
[2020-09-27] MEDS: Potassium Chloride 20 MEQ in Premix Bag 1 BAG IVPB SCH ×2 (05:05→07:14)
[2020-09-27] MEDS: Pantoprazole 40 MG VIAL IVP SCH (10:09)
[2020-09-27] MEDS: Folic Acid 1 MG TAB PO SCH ×2 (10:10→12:56)
[2020-09-27] MEDS: Thiamine 100 MG TAB PO SCH ×2 (10:10→12:56)
[2020-09-27] MEDS: Saccharomyces boulardii 250 MG CAP PO SCH ×2 (10:10→12:56)
[2020-09-27] MEDS: Spironolactone 25 MG TAB PO SCH ×2 (10:11→12:58)
[2020-09-27] MEDS: Multivitamin W/ Minerals 1 TAB PO SCH ×2 (10:11→12:56)
[2020-09-27] MEDS: Nicotine 14 MG PATCH TD SCH (10:11)
[2020-09-27] MEDS: Rifaximin 550 MG TAB PO SCH ×4 (10:14→21:16)
[2020-09-27] MEDS: Nystatin 500,000 UNITS/5 ML UDCUP SSW SCH ×4 (10:14→21:16)
[2020-09-27 13:40] LABS: Anion Gap 21 mmol/L (10-20); BUN (Urea Nitrogen) 7 mg/dL (7.0-18.7); Calc. Creatinine Clearance 36 mL/min (70-130); Calcium 9.1 mg/dL (7.8-10.44); Carbon Dioxide 22 mmol/L (22-29); Chloride 105 mmol/L (98-107); Glucose 80 mg/dL (70-105); Potassium 3.5 mmol/L (3.5-5.1); Sodium 144 mmol/L (136-145)
[2020-09-27 15:31] LABS: #Basophils 0.1 thou/uL (0.0-0.2); #Eosinphils 0.1 thou/uL (0.0-0.7); #Lymphocytes 2.4 thou/uL (1.20-3.40); #Monocytes 0.5 thou/uL (0.11-0.59); #Neutrophils 8.1 thou/uL (1.40-6.50); %Basophils 0.6 % (0.0-1.0); %Eosinophils 0.8 % (0.0-10.0); %Lymphocytes 21.2 % (21.0-51.0); %Monocytes 4.8 % (0.0-10.0); %Neutrophils 72.5 % (42.0-75.0); Hemoglobin 8.6 g/dL (12.0-16.0); Mean Corpuscular HGB CONC 33.4 g/dL (32.0-36.0); Mean Corpuscular Hemoglobin 33.5 pg (27.0-31.0); Mean Platelet Volume 8.8 fL (7.4-10.4); Platelet Count 126 thou/uL (130-400); RBC Distribution Width 15.8 % (11.5-14.5); Red Blood Cell (RBC) Count 2.56 mill/uL (4.20-5.40); White Blood Cell (WBC) Count 11.2 thou/uL (4.8-10.8)
[2020-09-27] MEDS ORDERED: Octreotide Acetate 50 MCG in Sodium Chloride 0.9% 50 ML IVPB SCH (16:00)
[2020-09-27] MEDS ORDERED: Octreotide Acetate 1,250 MCG in Sodium Chloride 0.9% 250 ML 250 ML IVPB SCH (16:00)
[2020-09-27 17:41] LABS: Anion Gap 19 mmol/L (10-20); BUN (Urea Nitrogen) 7 mg/dL (7.0-18.7); Calc. Creatinine Clearance 38 mL/min (70-130); Carbon Dioxide 19 mmol/L (22-29); Chloride 108 mmol/L (98-107); Glucose 74 mg/dL (70-105); Magnesium 1.9 mg/dL (1.6-2.6); Potassium 3.3 mmol/L (3.5-5.1); Sodium 143 mmol/L (136-145)
[2020-09-27] MEDS ORDERED: Potassium Chloride 40 MEQ in Sodium Chloride 0.9% 250 ML 250 ML IVPB SCH (18:30)
[2020-09-28 00:39] LABS: BUN (Urea Nitrogen) 7 mg/dL (7.0-18.7); Calc. Creatinine Clearance 41 mL/min (70-130); Calcium 9.1 mg/dL (7.8-10.44); Carbon Dioxide 19 mmol/L (22-29); Chloride 107 mmol/L (98-107); Glucose 74 mg/dL (70-105); Magnesium 1.8 mg/dL (1.6-2.6); Potassium 3.2 mmol/L (3.5-5.1); Sodium 145 mmol/L (136-145)
[2020-09-28 01:25] LABS: Anion Gap 22 mmol/L (10-20)
[2020-09-28] MEDS ORDERED: Potassium Chloride 20 MEQ TAB PO SCH ×3 (01:30→22:00)
[2020-09-28] MEDS ORDERED: Potassium Bicarbonate/Cit Ac 20 MEQ TAB PO SCH (02:00)
[2020-09-28] MEDS: Vancomycin HCl 25 MG/ML Oral PO SCH ×4 (05:18→22:45)
[2020-09-28 06:22] LABS: Anion Gap 22 mmol/L (10-20); BUN (Urea Nitrogen) 7 mg/dL (7.0-18.7); Calc. Creatinine Clearance 43 mL/min (70-130); Carbon Dioxide 20 mmol/L (22-29); Chloride 106 mmol/L (98-107); Glucose 86 mg/dL (70-105); Magnesium 1.8 mg/dL (1.6-2.6); Potassium 3.5 mmol/L (3.5-5.1); Sodium 144 mmol/L (136-145)
[2020-09-28 06:46] LABS: #Basophils 0.1 thou/uL (0.0-0.2); #Eosinphils 0.1 thou/uL (0.0-0.7); #Lymphocytes 2.6 thou/uL (1.20-3.40); #Monocytes 0.4 thou/uL (0.11-0.59); #Neutrophils 7.8 thou/uL (1.40-6.50); %Basophils 0.8 % (0.0-1.0); %Eosinophils 0.8 % (0.0-10.0); %Lymphocytes 23.7 % (21.0-51.0); %Monocytes 3.7 % (0.0-10.0); %Neutrophils 70.9 % (42.0-75.0); Hemoglobin 8.9 g/dL (12.0-16.0); Mean Corpuscular Hemoglobin 32.3 pg (27.0-31.0); Mean Platelet Volume 9.6 fL (7.4-10.4); Platelet Count 125 thou/uL (130-400); RBC Distribution Width 15.9 % (11.5-14.5); Red Blood Cell (RBC) Count 2.75 mill/uL (4.20-5.40)
[2020-09-28 08:14] LABS: Chloride 107 mmol/L (98-107); Potassium 3.5 mmol/L (3.5-5.1); Sodium 145 mmol/L (136-145)
[2020-09-28 08:15] LABS: Calcium 8.7 mg/dL (7.8-10.44); Glucose 82 mg/dL (70-105)
[2020-09-28 08:17] LABS: Anion Gap 24 mmol/L (10-20); Carbon Dioxide 18 mmol/L (22-29)
[2020-09-28 08:19] LABS: Calc. Creatinine Clearance 43 mL/min (70-130)
[2020-09-28 08:20] LABS: BUN (Urea Nitrogen) 7 mg/dL (7.0-18.7)
[2020-09-28 08:21] LABS: Magnesium 1.8 mg/dL (1.6-2.6)
[2020-09-28] MEDS: Multivitamin W/ Minerals 1 TAB PO SCH (08:31)
[2020-09-28] MEDS: Rifaximin 550 MG TAB PO SCH ×2 (08:31→22:59)
[2020-09-28] MEDS: Saccharomyces boulardii 250 MG CAP PO SCH (08:31)
[2020-09-28] MEDS: Thiamine 100 MG TAB PO SCH (08:31)
[2020-09-28] MEDS: Folic Acid 1 MG TAB PO SCH (08:31)
[2020-09-28] MEDS: Spironolactone 25 MG TAB PO SCH (08:32)
[2020-09-28] MEDS: Nystatin 500,000 UNITS/5 ML UDCUP SSW SCH ×4 (08:32→22:59)
[2020-09-28] MEDS: Nicotine 14 MG PATCH TD SCH (08:32)
[2020-09-28] MEDS: Pantoprazole 40 MG VIAL IVP SCH (08:32)
[2020-09-28] MEDS ORDERED: Albumin 25% 25 GM/100 ML BOT IVPB SCH (12:56)
[2020-09-28] MEDS: Clindamycin 150 MG CAP PER TUBE SCH ×2 (13:20→22:59)
[2020-09-28] MEDS ORDERED: Furosemide 40 MG/4 ML VIAL SLOW IVP SCH (14:00)
[2020-09-28 21:40] LABS: ALT (SGPT) 16 U/L (8-55); AST (SGOT) 78 U/L (5-34); Albumin 2.9 g/dL (3.5-5.0); Alkaline Phosphatase 56 U/L (40-110); Anion Gap 23 mmol/L (10-20); BUN (Urea Nitrogen) 7 mg/dL (7.0-18.7); Bilirubin, Total 6.7 mg/dL (0.2-1.2); Calc. Creatinine Clearance 43 mL/min (70-130); Calcium 9.1 mg/dL (7.8-10.44); Carbon Dioxide 20 mmol/L (22-29); Chloride 107 mmol/L (98-107); Glucose 102 mg/dL (70-105); Magnesium 1.6 mg/dL (1.6-2.6); Protein, Total 5.9 g/dL (6.0-8.3); Sodium 147 mmol/L (136-145)
[2020-09-28 21:43] LABS: Potassium 2.6 mmol/L (3.5-5.1)
[2020-09-28] MEDS ORDERED: Magnesium 2 GM/50 ML 2 GM in Premix Bag 1 BAG IVPB SCH (22:00)
[2020-09-28] MEDS: Potassium Chloride 20 MEQ in Premix Bag 1 BAG IVPB SCH (23:13)
[2020-09-29] MEDS: Potassium Chloride 20 MEQ in Premix Bag 1 BAG IVPB SCH ×2 (03:39→06:32)
[2020-09-29] MEDS: Vancomycin HCl 25 MG/ML Oral PO SCH ×3 (05:23→16:37)
[2020-09-29] MEDS: Clindamycin 150 MG CAP PER TUBE SCH ×3 (05:24→21:34)
[2020-09-29 06:46] LABS: #Basophils 0.1 thou/uL (0.0-0.2); #Eosinphils 0.1 thou/uL (0.0-0.7); #Lymphocytes 2.7 thou/uL (1.20-3.40); #Monocytes 0.7 thou/uL (0.11-0.59); #Neutrophils 8.8 thou/uL (1.40-6.50); %Basophils 0.6 % (0.0-1.0); %Eosinophils 0.7 % (0.0-10.0); %Lymphocytes 21.8 % (21.0-51.0); %Monocytes 5.3 % (0.0-10.0); %Neutrophils 71.6 % (42.0-75.0); Hemoglobin 7.3 g/dL (12.0-16.0); Mean Corpuscular HGB CONC 31.7 g/dL (32.0-36.0); Mean Corpuscular Hemoglobin 31.9 pg (27.0-31.0); Mean Platelet Volume 9.2 fL (7.4-10.4); Platelet Count 129 thou/uL (130-400); RBC Distribution Width 16.2 % (11.5-14.5); White Blood Cell (WBC) Count 12.3 thou/uL (4.8-10.8)
[2020-09-29 06:53] LABS: Anion Gap 19 mmol/L (10-20); BUN (Urea Nitrogen) 6 mg/dL (7.0-18.7); Calc. Creatinine Clearance 45 mL/min (70-130); Calcium 9.1 mg/dL (7.8-10.44); Carbon Dioxide 22 mmol/L (22-29); Chloride 107 mmol/L (98-107); Glucose 100 mg/dL (70-105); Magnesium 1.9 mg/dL (1.6-2.6); Potassium 3.1 mmol/L (3.5-5.1); Sodium 145 mmol/L (136-145)
[2020-09-29] MEDS: Nystatin 500,000 UNITS/5 ML UDCUP SSW SCH ×4 (08:59→21:35)
[2020-09-29] MEDS: Multivitamin W/ Minerals 1 TAB PO SCH (09:00)
[2020-09-29] MEDS: Folic Acid 1 MG TAB PO SCH (09:00)
[2020-09-29] MEDS: Rifaximin 550 MG TAB PO SCH ×2 (09:00→21:35)
[2020-09-29] MEDS: Saccharomyces boulardii 250 MG CAP PO SCH (09:00)
[2020-09-29] MEDS: Spironolactone 25 MG TAB PO SCH (09:00)
[2020-09-29] MEDS: Thiamine 100 MG TAB PO SCH (09:00)
[2020-09-29] MEDS: Potassium Chloride 20 MEQ TAB PO SCH (09:00)
[2020-09-29] MEDS: Pantoprazole 40 MG VIAL IVP SCH (09:01)
[2020-09-29] MEDS: Nicotine 14 MG PATCH TD SCH (09:01)
[2020-09-29] MEDS ORDERED: Albumin 25% 25 GM/100 ML BOT IVPB SCH (10:16)
[2020-09-29] MEDS: Scopolamine 1.5 mg/72 hour Patch TD SCH (11:24)
[2020-09-29] MEDS ORDERED: Furosemide 40 MG/4 ML VIAL SLOW IVP SCH (11:30)
[2020-09-29 13:19] LABS: Hemoglobin 7.9 g/dL (12.0-16.0)
[2020-09-29 13:35] LABS: Anion Gap 21 mmol/L (10-20); BUN (Urea Nitrogen) 7 mg/dL (7.0-18.7); Calc. Creatinine Clearance 46 mL/min (70-130); Calcium 9.1 mg/dL (7.8-10.44); Carbon Dioxide 22 mmol/L (22-29); Chloride 108 mmol/L (98-107); Glucose 95 mg/dL (70-105); Potassium 3.4 mmol/L (3.5-5.1); Sodium 148 mmol/L (136-145)
[2020-09-29] MEDS ORDERED: Potassium Chloride 20 MEQ TAB PO SCH (16:30)
[2020-09-30] MEDS: Vancomycin HCl 25 MG/ML Oral PO SCH ×4 (00:10→15:08)
[2020-09-30] MEDS: Clindamycin 150 MG CAP PER TUBE SCH ×2 (05:40→15:06)
[2020-09-30 07:24] LABS: #Basophils 0.1 thou/uL (0.0-0.2); #Eosinphils 0.1 thou/uL (0.0-0.7); #Lymphocytes 2.5 thou/uL (1.20-3.40); #Monocytes 0.6 thou/uL (0.11-0.59); #Neutrophils 8.3 thou/uL (1.40-6.50); %Basophils 0.7 % (0.0-1.0); %Eosinophils 0.6 % (0.0-10.0); %Monocytes 4.8 % (0.0-10.0); %Neutrophils 71.8 % (42.0-75.0); Hemoglobin 8.3 g/dL (12.0-16.0); Mean Corpuscular HGB CONC 31.9 g/dL (32.0-36.0); Mean Corpuscular Hemoglobin 31.8 pg (27.0-31.0); Mean Corpuscular Volume 99.7 fL (78.0-98.0); Mean Platelet Volume 9.7 fL (7.4-10.4); Platelet Count 119 thou/uL (130-400); RBC Distribution Width 16.2 % (11.5-14.5); Red Blood Cell (RBC) Count 2.62 mill/uL (4.20-5.40); White Blood Cell (WBC) Count 11.5 thou/uL (4.8-10.8)
[2020-09-30 07:25] LABS: ALT (SGPT) 22 U/L (8-55); AST (SGOT) 107 U/L (5-34); Albumin 2.8 g/dL (3.5-5.0); Alkaline Phosphatase 60 U/L (40-110); Anion Gap 15 mmol/L (10-20); BUN (Urea Nitrogen) 7 mg/dL (7.0-18.7); Bilirubin, Total 7.1 mg/dL (0.2-1.2); Calc. Creatinine Clearance 49 mL/min (70-130); Calcium 9.4 mg/dL (7.8-10.44); Carbon Dioxide 28 mmol/L (22-29); Chloride 109 mmol/L (98-107); Globulin 3.5 g/dL (2.4-3.5); Glucose 105 mg/dL (70-105); Magnesium 1.6 mg/dL (1.6-2.6); Potassium 3.8 mmol/L (3.5-5.1); Protein, Total 6.3 g/dL (6.0-8.3); Sodium 148 mmol/L (136-145)
[2020-09-30] MEDS ORDERED: Magnesium Sulfate 2 GM in Sodium Chloride 0.9% 100 ML IVPB SCH (08:15)
[2020-09-30] MEDS ORDERED: Magnesium 2 GM/50 ML 2 GM in Premix Bag 1 BAG IVPB SCH (08:30)
[2020-09-30] MEDS: Potassium Chloride 20 MEQ TAB PO SCH (09:59)
[2020-09-30] MEDS: Folic Acid 1 MG TAB PO SCH (09:59)
[2020-09-30] MEDS: Spironolactone 25 MG TAB PO SCH (09:59)
[2020-09-30] MEDS: Saccharomyces boulardii 250 MG CAP PO SCH (09:59)
[2020-09-30] MEDS: Rifaximin 550 MG TAB PO SCH (10:00)
[2020-09-30] MEDS: Multivitamin W/ Minerals 1 TAB PO SCH (10:00)
[2020-09-30] MEDS: Pantoprazole 40 MG VIAL IVP SCH (10:00)
[2020-09-30] MEDS: Thiamine 100 MG TAB PO SCH (10:00)
[2020-09-30] MEDS: Nicotine 14 MG PATCH TD SCH (10:07)
[2020-09-30] MEDS: Nystatin 500,000 UNITS/5 ML UDCUP SSW SCH ×3 (10:07→17:48)
[2020-09-30 15:01] LABS: #Basophils 0.1 thou/uL (0.0-0.2); #Eosinphils 0.1 thou/uL (0.0-0.7); #Lymphocytes 2.6 thou/uL (1.20-3.40); #Monocytes 0.7 thou/uL (0.11-0.59); #Neutrophils 10.6 thou/uL (1.40-6.50); %Basophils 0.8 % (0.0-1.0); %Eosinophils 0.7 % (0.0-10.0); %Lymphocytes 18.4 % (21.0-51.0); %Monocytes 4.7 % (0.0-10.0); %Neutrophils 75.3 % (42.0-75.0); Hemoglobin 8.9 g/dL (12.0-16.0); Mean Corpuscular HGB CONC 32.1 g/dL (32.0-36.0); Mean Corpuscular Hemoglobin 32.1 pg (27.0-31.0); Mean Platelet Volume 9.9 fL (7.4-10.4); Platelet Count 121 thou/uL (130-400); RBC Distribution Width 16.6 % (11.5-14.5); Red Blood Cell (RBC) Count 2.78 mill/uL (4.20-5.40)
[2020-09-30 15:09] LABS: INR-International Normal Ratio 2.6; Prothrombin Time 28.1 sec (12.0-14.7)
[2020-09-30 15:10] LABS: PTT 46.3 sec (22.9-36.1)
[2020-09-30] MEDS ORDERED: Potassium Chloride 20 MEQ TAB PO SCH (16:00)
[2020-09-30 17:35] VITALS: BP 106/71; TEMP 98.1
[2020-10-01] MEDS ORDERED: Potassium Chloride 20 MEQ TAB PO SCH (08:00)
== END 2020-09-30 19:55 | disposition home or self-care (01) | DRG 871 ==
LOC: ERS 09:19 → T4-A 14:52
PROVIDERS: ADMIT Student in an Organized Health Care Education/Training Program; ATTEND Student in an Organized Health Care Education/Training Program
PROC: 0W9G3ZX Drainage of Peritoneal Cavity, Percutaneous Approach, Diagnostic (ICD-10-PCS; 2020-09-21)
PROC: 0W9G3ZZ Drainage of Peritoneal Cavity, Percutaneous Approach (ICD-10-PCS; principal; 2020-09-26)
PROC: 0W9G3ZZ Drainage of Peritoneal Cavity, Percutaneous Approach (ICD-10-PCS; 2020-09-30)
PROC: 0DH67UZ Insertion of Feeding Device into Stomach, Via Natural or Artificial Opening (ICD-10-PCS; 2020-09-30)
DX: A41.89 Other specified sepsis (principal); E43 Unspecified severe protein-calorie malnutrition; K72.00 Acute and subacute hepatic failure without coma; G93.41 Metabolic encephalopathy; J69.0 Pneumonitis due to inhalation of food and vomit; K76.7 Hepatorenal syndrome; I62.03 Nontraumatic chronic subdural hemorrhage; Z68.1 Body mass index [BMI] 19.9 or less, adult; R64 Cachexia; K86.2 Cyst of pancreas; A04.71 Enterocolitis due to Clostridium difficile, recurrent; N17.9 Acute kidney failure, unspecified; E87.2 Acidosis; B37.0 Candidal stomatitis; K62.5 Hemorrhage of anus and rectum; D68.9 Coagulation defect, unspecified; Z20.822 Contact with and (suspected) exposure to COVID-19; K70.11 Alcoholic hepatitis with ascites; R65.20 Severe sepsis without septic shock; F31.9 Bipolar disorder, unspecified; F20.9 Schizophrenia, unspecified; F17.210 Nicotine dependence, cigarettes, uncomplicated; I10 Essential (primary) hypertension; D57.3 Sickle-cell trait; F10.20 Alcohol dependence, uncomplicated; R74.01 Elevation of levels of liver transaminase levels; K80.20 Calculus of gallbladder without cholecystitis without obstruction; D53.9 Nutritional anemia, unspecified; K86.89 Other specified diseases of pancreas; E87.6 Hypokalemia; E83.42 Hypomagnesemia; E83.39 Other disorders of phosphorus metabolism; K70.31 Alcoholic cirrhosis of liver with ascites; E88.09 Other disorders of plasma-protein metabolism, not elsewhere classified; R22.0 Localized swelling, mass and lump, head; Z78.1 Physical restraint status; Z88.0 Allergy status to penicillin; Z79.899 Other long term (current) drug therapy; Z83.49 Family history of other endocrine, nutritional and metabolic diseases; Z80.3 Family history of malignant neoplasm of breast; Z80.0 Family history of malignant neoplasm of digestive organs; Z91.19 Patient's noncompliance with other medical treatment and regimen; Z91.14 Patient's other noncompliance with medication regimen; R63.0 Anorexia; H10.89 Other conjunctivitis
CPT/HCPCS: 36415; 36416; 36430; 49083; 70450; 70491; 71045; 74018; 74177; 74183; 76705; 76770; 80048; 80053; 80076; 81001; 81003; 81015; 82040; 82105; 82140; 82248; 82274; 82378; 82570; 82607; 82728; 82746; 83010; 83540; 83550; 83605; 83615; 83690; 83735; 84100; 84145; 84300; 84443; 84466; 84484; 84703; 85025; 85046; 85060; 85610; 85730; 86301; 86593; 86704; 86705; 86706; 86709; 86780; 86803; 86850; 86870; 86900; 86901; 86905; 86921; 87040; 87070; 87086; 87205; 87324; 87340; 87389; 87449; 87493; 87635; 89051; 93005; 93010; A9579; C9113; J0696; J1940; J1956; J2354; J2405; J3411; J3475; J3480; J3490; J7042; J7050; J7070; P9016; P9047; Q0162; Q9967; U0003; U0005